=== PATIENT | female | born 1975 | race Caucasian/White ===

== ENCOUNTER 2018-01-13 15:21 | Emergency (ER) | payer BC, SELFPAY ==
[2018-01-13 15:24] VITALS: PULSE 87; RESP 14; O2SAT 100
--- NOTE | 2018-01-13 15:26 | DI.RAD.S_ITS ---
PROCEDURE: XR CHEST 1V INDICATIONS: Chest pain TECHNIQUE: One view of the chest was acquired. COMPARISON: None. FINDINGS: Surgical changes and devices: None. Lungs and pleura: No pleural effusions or pneumothorax. Lungs are clear. Mediastinum: Mediastinal contours appear normal. Heart size is normal. Bones and chest wall: No suspicious bony lesions. Overlying soft tissues appear unremarkable. IMPRESSION: No acute cardiopulmonary pathology. Dictated by: Nikko Andre M.D. on 01/13/2018 at 15:55 Approved by: Nikko Andre M.D. on 01/13/2018 at 15:56
[2018-01-13 15:29] VITALS: BP 155/80; TEMP 36.7
--- NOTE | 2018-01-13 15:46 | ED.CHESTPAIN ---
HPI - Chest Pain General Chief Complaint: Chest Pain Stated Complaint: CHEST PAIN Time Seen by Provider: 01/13/18 15:26 Source: patient Mode of arrival: ambulatory Limitations: no limitations History of Present Illness HPI narrative: Patient is a 42-year-old female here for evaluation of left-sided chest pain. She states that it started this morning. She states that it woke her woke her up from sleep this morning she states that it then went away and then returned this afternoon. She states that his left side. Pressure. Radiating to the left side of her breast. No shortness of breath. Not worse with palpation. Not worse with movement. Not worse with deep breaths. 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 She is not currently on any aspirin. She has had pain similar to this in the past. She states she has been to the emergency department in the past but has never had a ?workup ?of the pain. She has seen her primary care doctor. Never seen a gristmiller. Related Data Allergies Allergy/AdvReac Type Severity Reaction Status Date / Time amoxicillin [AMOXICILLIN] Allergy Mild RASH Unverified 08/29/17 12:29 clavulanic acid Allergy Mild RASH Unverified 08/29/17 12:29 [From AUGMENTIN] Review of Systems Constitutional Denies chills and Denies fever(s) ENT Ears, Nose, Mouth, and Throat: Denies vertigo and Denies dizziness Cardiovascular Reports chest pain, Denies syncope, Denies edema and Denies dyspnea Respiratory Denies cough, Denies pain on inspiration and Denies dyspnea Gastrointestinal Gastrointestinal: Denies abdominal pain, Denies diarrhea, Denies nausea and Denies vomiting Genitourinary Denies dysuria Musculoskeletal Denies myalgias and Denies arthralgias Integumentary/Breasts Denies lesions and Denies rash Neurologic Denies vertigo, Denies dizziness and Denies syncope Hematologic/Lymphatic Denies easy bleeding and Denies easy bruising [facility] Medical History CVA (cerebral vascular accident) (Acute) Vertebral artery dissection (Acute) Surgical History No pertinent past surgical history (Acute) Exam Initial Vital Signs Initial Vital Signs: Vital Signs Pulse Rate 87 01/13/18 15:24 Respiratory Rate 14 01/13/18 15:24 Pulse Oximetry 100 01/13/18 15:24 Const General: cooperative, healthy appearing, comfortable, well developed, well groomed and No acute distress Orientation: alert, awake and oriented x3 HENMT Head: normal to inspection and normocephalic Chest Chest: normal inspection of the chest and normal palpation of entire chest wall Resp Effort & Inspection: normal respiratory effort Auscultation: clear to auscultation bilaterally Cardio Rate: regular rate Rhythm: regular rhythm Heart Sounds: no murmurs Pulses: radial pulses present GI Inspection: non-distended Palpation: No firm and No tender Skin Lesions: no lesions Rashes: no rashes Neuro General: alert, awake and oriented x3 Cognition: normal cognition Speech: speech normal Gait: normal gait Extrem General: normal to inspection and capillary refill normal Psych Appearance: grossly normal and well kempt Scores HEART Score Heart Score history: Slightly Suspicious Heart Score EKG: Normal Heart Score Age: < 45 years old Heart Score risk factors: No known risk factors Heart Score troponin: < or = to normal limit Heart Score Total: 0 Course Orders Ordered: ED Orders 01/13/18 13:25 EKG-12 Lead Stat 01/13/18 15:26 XR chest 1V Stat 01/13/18 16:10 Basic Metabolic Panel Stat Complete Blood Count AUTO DIFF Stat Troponin I Stat Discontinued Medications Aspirin (Aspirin Chew) 324 mg PO NOW ONE Stop: 01/13/18 15:48 Last Admin: 01/13/18 15:54 Dose: 324 mg Vital Signs - 8 hr 01/13/18 15:24 01/13/18 15:29 01/13/18 16:03 Temperature 98.1 F Pulse Rate 87 82 Respiratory Rate 14 15 Blood Pressure [Left Arm] 155/80 H 130/77 H Pulse Oximetry 100 100 01/13/18 16:36 01/13/18 17:08 Temperature Pulse Rate 88 78 Respiratory Rate 16 18 Blood Pressure [Left Arm] 122/72 H 127/75 H Pulse Oximetry 99 99 MDM - Chest Pain Lab Data Attestation: I reviewed the patient's lab results. Result diagrams: 01/13/18 16:10 01/13/18 16:10 Lab Results 01/13/18 01/13/18 Range/Units 16:10 16:10 WBC 7.2 (4.5-11.0) X10^3/uL RBC 5.14 (4.0-5.2) X10^6/uL Hgb 14.7 (12.0-16.0) g/dL Hct 43.9 (36-46) % MCV 85.5 (80-100) fL MCH 28.6 (26-34) PG MCHC 33.5 (30-36) % RDW 14.6 (11.6-14.8) % Plt Count 280 (150-400) X10^3/uL Neut % (Auto) 64.9 (50-75) % Lymph % (Auto) 25.5 (25-40) % [place] % (Auto) 7.8 (3-14) % Eos % (Auto) 1.1 L (2-4) % Baso % (Auto) 0.7 (0-2) % Neut # (Auto) 4700 (0033-7436) /uL Sodium 145 (137-145) mmol/L Potassium 4.6 (3.4-5.1) mmol/L Chloride 104 (98-107) mmol/L Carbon Dioxide 28 (22-32) mmol/L BUN 12 (7-17) mg/dL Creatinine 0.80 (0.52-1.04) mg/dL Estimated GFR > 60.0 (>60) mL/min BUN/Creatinine Ratio 15.0 (6-22) Glucose 99 (70-100) mg/dL Calcium 9.5 (8.4-10.2) mg/dL Troponin I < 0.012 (0.01-0.034) ng/mL Imaging Data Chest x-ray: Radiologist's impression: [address] [address] XRay Report Signed Patient: Angi Bui FMR#: [id number] : 1975Acct:[id number] Age/Sex: 42 / FDate of Service: 01/13/18 Loc: ED Accession Number: [id number] Procedure: XR chest 1V Ordering Provider: Juan Lee D.O. PROCEDURE: XR CHEST 1V INDICATIONS: Chest pain TECHNIQUE: One view of the chest was acquired. COMPARISON: None. FINDINGS: Surgical changes and devices: None. Lungs and pleura: No pleural effusions or pneumothorax. Lungs are clear. Mediastinum: Mediastinal contours appear normal. Heart size is normal. Bones and chest wall: No suspicious bony lesions. Overlying soft tissues appear unremarkable. IMPRESSION: No acute cardiopulmonary pathology. Dictated by: Nikko Andre M.D. on 01/13/2018 at 15:55 Approved by: Nikko Andre M.D. on 01/13/2018 at 15:56 ECG Data Attestation: I personally reviewed and interpreted this ECG as follows: Prior ECG tracings: not available for review Interpretation: Sinus rhythm Ventricular rate in 90 Normal axis Normal intervals Normal QRS No ST T wave changes MDM Narrative Medical decision making narrative: Heart score 0 Nonischemic EKG Negative troponin 6 hr after the onset of her pain Low risk for ACS. Discussed this with the patient. She was given return precautions. Informed her she needed to talk with her primary doctor about further workup to include a stress test. She expressed understanding and agreement with plan. Discharge Plan Departure Patient Disposition: Home Clinical Impression: Atypical chest pain Instructions: DI for Atypical Chest Pain Activity Restrictions/Additional Instructions: Recommend you contact her primary care doctor to discuss follow-up to include the indications for a stress test. Return to the emergency department for any new or worsening symptoms.
[2018-01-13] MEDS: ASPIRIN 81 MG TAB 324 MG PO (15:54)
[2018-01-13 16:03] VITALS: BP 130/77; PULSE 82; RESP 15; O2SAT 100
[2018-01-13 16:23] LABS: Add Manual Diff / Slide Review NO; Basophils Percent Auto 0.7 % (0-2); Eosinophils Percent Auto 1.1 % (2-4); Hematocrit 43.9 % (36-46); Hemoglobin 14.7 g/dL (12.0-16.0); Lymphocytes Percent Auto 25.5 % (25-40); Mean Corpuscular HGB Conc 33.5 % (30-36); Mean Corpuscular Hemoglobin 28.6 PG (26-34); Mean Corpuscular Volume 85.5 fL (80-100); Monocytes Percent Auto 7.8 % (3-14); Neutrophils Absolute Auto 4700 /uL (3000-5900); Neutrophils Percent Auto 64.9 % (50-75); Platelet Count 280 X10^3/uL (150-400); Red Blood Cell Count 5.14 X10^6/uL (4.0-5.2); Red Cell Distribution Width 14.6 % (11.6-14.8); White Blood Cell Count 7.2 X10^3/uL (4.5-11.0)
[2018-01-13 16:29] LABS: Blood Urea Nitrogen 12 mg/dL (7-17); Calcium 9.5 mg/dL (8.4-10.2); Carbon Dioxide 28 mmol/L (22-32); Chloride 104 mmol/L (98-107); Estimated Glomerular Filt Rate > 60.0 mL/min (>60); Glucose 99 mg/dL (70-100); HEMOLYSIS < 15 (0-50); Potassium 4.6 mmol/L (3.4-5.1); Sodium 145 mmol/L (137-145)
[2018-01-13 16:36] VITALS: BP 122/72; PULSE 88; RESP 16; O2SAT 99
[2018-01-13 17:08] VITALS: BP 127/75; PULSE 78; RESP 18; O2SAT 99
[2018-01-13 17:08] LABS: Troponin I < 0.012 ng/mL (0.01-0.034)
== END 2018-01-13 17:43 | disposition home or self-care (01) ==
PROVIDERS: Emergency Provider Emergency Medicine; Family Provider Registered Nurse; PCP Registered Nurse
DX: R07.89 Other chest pain (principal)
CPT/HCPCS: 36415; 71045; 80048; 84484; 85025; 93005; 93010; 99283; 99285

== ENCOUNTER → 2018-02-02 11:21 | Outpatient (CLI) | payer BC, SELFPAY ==
--- NOTE | 2018-02-02 | DI.MG.S_ITS ---
BILATERAL DIGITAL SCREENING MAMMOGRAM 3D/2D WITH CAD: 02/02/2018 CLINICAL: Routine screening. Family history of breast cancer. Comparison is made to exams dated: 08/09/2016 mammogram - [facility], 09/01/2009 mammogram, and 08/26/2009 mammogram - [facility]. The tissue of both breasts is heterogeneously dense. This may lower the sensitivity of mammography. Current study was also evaluated with a Computer Aided Detection (CAD) system. There is an asymmetry in the right breast posterior depth outer region seen on the craniocaudal view only. A metallic density projects over the upper inner right breast at middle depth, unchanged from prior exam. No other significant masses, calcifications, or other findings are seen in either breast. IMPRESSION: INCOMPLETE: NEEDS ADDITIONAL IMAGING EVALUATION The asymmetry in the right breast is indeterminate. Additional views with possible ultrasound are recommended. This exam was interpreted at Station ID: [id number]. NOTE: For mammograms, a report in lay terms will be sent to the patient. Approximately 15% of breast malignancies will not be visualized mammographically. In the management of a palpable breast mass, a negative mammogram must not discourage biopsy of a clinically suspicious lesion. Electronically Signed By: Wellington Briones M.D. ecl/:02/04/2018 08:28:01 letter sent: Additional Imaging Needed ACR BI-RADS Category 0: Incomplete [id number]
== END ==
PROVIDERS: PCP Registered Nurse; Visit Provider Naturopath
DX: Z12.31 Encounter for screening mammogram for malignant neoplasm of breast (principal); Z80.3 Family history of malignant neoplasm of breast
CPT/HCPCS: 77063; 77067

== ENCOUNTER → 2018-03-05 14:22 | Outpatient (CLI) | payer BC, SELFPAY ==
--- NOTE | 2018-03-05 | DI.MG.S_ITS ---
UNILATERAL RIGHT DIGITAL DIAGNOSTIC MAMMOGRAM 3D/2D WITH ADDITIONAL VIEWS: 03/05/2018 CLINICAL: Additional evaluation requested from prior study. Comparison is made to exams dated: 02/02/2018 mammogram, 08/09/2016 mammogram - [facility], and 09/01/2009 mammogram - [facility]. There are scattered fibroglandular elements in right breast. There is a benign oval low density asymmetry with an indistinct margin in the right breast posterior depth lateral region seen on the craniocaudal view only. This is not seen in additional views. No other significant masses or calcifications are seen in the breast. IMPRESSION: There is no mammographic evidence of malignancy. A 1 year screening mammogram is recommended. This exam was interpreted at Station ID: [id number]. NOTE: For mammograms, a report in lay terms will be sent to the patient. Approximately 15% of breast malignancies will not be visualized mammographically. In the management of a palpable breast mass, a negative mammogram must not discourage biopsy of a clinically suspicious lesion. Electronically Signed By: Mata mendes/saloni:03/05/2018 15:00:17 letter sent: Normal Exam ACR BI-RADS Category 2: Benign Finding(s) 3342F
== END ==
PROVIDERS: PCP Naturopath; Visit Provider Naturopath
DX: R92.8 Other abnormal and inconclusive findings on diagnostic imaging of breast (principal)
CPT/HCPCS: 77065; G0279

== ENCOUNTER → 2018-04-29 13:41 | Outpatient (CLI) | payer BC, SELFPAY ==
--- NOTE | 2018-04-29 14:55 | PM.TREADMILL ---
Cardiac Stress Test Report Referral & Results Date Patient Seen: 04/29/18 Requesting provider: Abelino Escobedo Indication: Chest pain Rest ECG: Unremarkable Procedure Note: Today following both written and verbal informed consent, the patient was exercised according to a standard [facility] protocol. The patient exercised for a total of 7 min 21 sec achieving a maximum heart rate of 170 to. Patient's maximum systolic blood pressure was to 120. This was an estimated 10.1 MET's. Normal heart rate and blood pressure response No ST-T segment changes Occasional PVC Functional aerobic impairment rated 0 on the sedentary scale Impression: No evidence of ischemia. Average exercise capacity Please note: Actual ECG tracings can be found in the PACS system.
== END ==
PROVIDERS: Family Provider Internal Medicine; PCP Naturopath; Visit Provider Nurse Practitioner Family
DX: R07.9 Chest pain, unspecified (principal)
CPT/HCPCS: 93016; 93017; 93018

== ENCOUNTER → 2018-05-08 13:35 | Outpatient (CLI) | payer BC, SELFPAY ==
--- NOTE | 2018-05-08 | DI.MRI.S_ITS ---
PROCEDURE: MR BRAIN (IAC) WWO CON INDICATIONS: RIGHT Tinnitus RIGHT ABNORMAL AUDITORY PERCEPTION TECHNIQUE: Noncontrast sagittal T1 spin echo, axial FLAIR, axial gradient echo, axial diffusion and ADC through the brain. Axial thin-slice 3D CISS, coronal TruFISP, axial T1 spin echo with fat saturation through the internal auditory canals. After the administration of contrast, thin slice axial and coronal T1 spin echo with fat saturation through the internal auditory canals, and axial T1 spin echo with fat saturation through the brain. COMPARISON: None. FINDINGS: Image quality: Excellent. Cranial nerves: No cerebellopontine angle masses. Visualized cranial nerves demonstrate no abnormal signal, mass lesion or enhancement. 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 Similar appearance is noted on the right. CSF spaces: Ventricles are normal in size and shape. No extra-axial fluid collections. Basal cisterns are patent. Brain: No intracranial bleeds or mass effects. Kong-white matter interface is intact. No abnormal intracranial enhancement. Diffusion weighted images demonstrate no acute ischemic insults. Brainstem appears normal. Normal intravascular flow voids are present. Skull and face: Calvarial marrow signal is normal. Orbits appear normal. Sinuses: Sinuses demonstrate scattered minimal sinus mucosal thickening. IMPRESSION: 1. Visualized cranial nerves demonstrate no abnormal signal, mass lesion or enhancement. It is noted that a branch of what appears to be AICA, crosses the seventh cranial nerve at the cerebellopontine angles bilaterally. This can be seen with vascular loop compression syndrome. Clinical correlation is recommended. Dictated by: Marysol Chow M.D. on 05/08/2018 at 16:22 Approved by: Marysol Chow M.D. on 05/08/2018 at 16:31
== END ==
PROVIDERS: Family Provider Internal Medicine; PCP Naturopath; Visit Provider Otolaryngology Facial Plastic Surgery
DX: H93.11 Tinnitus, right ear (principal); H93.291 Other abnormal auditory perceptions, right ear
CPT/HCPCS: 70553; A9579

== ENCOUNTER 2018-06-07 17:06 | Emergency (ER) | payer BC, SELFPAY ==
[2018-06-07 17:20] VITALS: BP 138/82; PULSE 111; RESP 19; TEMP 39; O2SAT 100; BMI 39.4
--- NOTE | 2018-06-07 17:26 | DI.RAD.S_ITS ---
PROCEDURE: XR CHEST 2V INDICATIONS: coughing with chest pressure TECHNIQUE: 2 views of the chest were acquired. COMPARISON: [facility], CR, XR CHEST 1V, 01/13/2018, 15:39. FINDINGS: Surgical changes and devices: None. Lungs and pleura: No pleural effusions or pneumothorax. Lungs are clear. Mediastinum: Mediastinal contours are normal. Heart size is normal. Bones and chest wall: No suspicious bony abnormalities. Soft tissues appear unremarkable. IMPRESSION: No acute cardiopulmonary findings. Dictated by: Mayi Paige M.D. on 06/07/2018 at 17:46 Approved by: Mayi Paige M.D. on 06/07/2018 at 17:46
[2018-06-07 17:31] VITALS: TEMP 39
[2018-06-07] MEDS: ACETAMINOPHEN 325 MG TABLET 975 MG PO (17:31)
[2018-06-07 18:30] VITALS: PULSE 109; RESP 18; TEMP 38.8; O2SAT 97
--- NOTE | 2018-06-07 18:55 | ED_ITS ---
HPI - URI/Sore Throat General Chief Complaint: Upper Respiratory Symptoms Stated Complaint: fever,heart palpitations,congestion Time Seen by Provider: 06/07/18 18:36 Source: patient Mode of arrival: ambulatory Limitations: no limitations History of Present Illness HPI Narrative: Patient is a 23-year-old female who presents with cough and shortness of breath ongoing for last 2 days. She says she has had fever and body aches as well. She denies any sore throat. She feels with any slight movement she gets very short of breath. No productive cough. She is currently afebrile. Influenza has already come back and is positive. She is taking prednisone on a taper dose for tinnitus which she has had for the last 3 months. She says she is not sleeping likely due to the tinnitus and prednisone. MD Complaint: fever and cough Onset (ago): day(s) (2) Related Data Home Medications Medication Instructions Recorded Confirmed Bacillus coagulans [Probiotic (B. 1 cap PO DAILY 06/07/18 06/07/18 coagulans)] azelastine 1 spray INTRANASAL DAILY 06/07/18 06/07/18 cholecalciferol (vitamin D3) 1,000 unit PO DAILY 06/07/18 [Vitamin D3] prednisone See Label Instructions .ROUTE 06/07/18 06/07/18 .COMPLEX Allergies Allergy/AdvReac Type Severity Reaction Status Date / Time amoxicillin [AMOXICILLIN] Allergy Mild RASH Unverified 08/29/17 12:29 clavulanic acid Allergy Mild RASH Unverified 08/29/17 12:29 [From AUGMENTIN] Review of Systems Review of Systems ROS Unobtainable: All systems reviewed & are unremarkable except as noted in HPI and below Constitutional Reports body ache(s), Reports chills, Reports fatigue and Reports fever(s) Eyes Denies change in vision, Denies eye discharge, Denies irritation and Denies loss of vision ENT Ears, Nose, Mouth, and Throat: Denies change in voice, Denies neck pain and Denies sore throat Cardiovascular Denies chest pain, Denies irregular heart rhythm, Denies lightheadedness, Denies palpitations and Denies orthopnea Respiratory Reports as per HPI and Reports cough Gastrointestinal Gastrointestinal: Denies abdominal pain, Denies change in bowel habits, Denies diarrhea, Denies nausea and Denies vomiting Musculoskeletal Denies neck pain Integumentary/Breasts Denies pruritus, Denies erythema, Denies rash and Denies wounds Neurologic Denies loss of vision Endocrine Reports fatigue and Denies palpitations PFS Medical History CVA (cerebral vascular accident) (Acute) Vertebral artery dissection (Acute) Surgical History No pertinent past surgical history (Acute) Social History Smoking Status: Former smoker Exam Initial Vital Signs Initial Vital Signs: Vital Signs Temperature 102.2 F H 06/07/18 17:20 Pulse Rate 111 H 06/07/18 17:20 Respiratory Rate 19 06/07/18 17:20 Blood Pressure 138/82 06/07/18 17:20 Pulse Oximetry 100 06/07/18 17:20 GENERAL: Alert awake oriented female x3, appears to not feel well but is nontoxic HEENT: Head atraumatic,EOMI, pupils reactive, CARDIOVASCULAR: Regular rate and rhythm without murmurs, rubs or gallops. RESPIRATORY: Breath sounds equal bilaterally, no wheezes rales or rhonchi. ABDOMEN: Soft, nontender. Normoactive bowel sounds all 4 quadrants. No guarding or rebound. EXTREMITIES: Normal range of motion, no clubbing or edema. Neurovascularly intact NEUROLOGICAL: Alert and oriented x4.Normal gait and speech. Cranial nerves II through XII grossly intact. SKIN: Warm, dry, no laceration, no petechiae, no rashes or lesions. Course Orders Ordered: ED Orders 06/07/18 17:20 FLU A and B [Influenza A and B by PCR Rapid] Stat 06/07/18 17:26 XR chest 2V Stat Discontinued Medications Acetaminophen (Tylenol) 975 mg PO NOW ONE Stop: 06/07/18 17:28 Last Admin: 06/07/18 17:31 Dose: 975 mg Vital Signs - 8 hr 06/07/18 17:20 06/07/18 17:31 06/07/18 18:30 Temperature 102.2 F H 102.2 F H 101.8 F H Pulse Rate 111 H 109 H Respiratory Rate 19 18 Blood Pressure 138/82 Pulse Oximetry 100 97 MDM - URI/Sore Throat Lab Data Attestation: I reviewed the patient's lab results. Lab Results 06/07/18 Range/Units 17:20 Influenza A & B (PCR) Positive, type a A (Negative) Imaging Data Chest x-ray: Radiologist's impression: PROCEDURE: XR CHEST 2V INDICATIONS: coughing with chest pressure TECHNIQUE: 2 views of the chest were acquired. COMPARISON: [facility], CR, XR CHEST 1V, 01/13/2018, 15:39. FINDINGS: Surgical changes and devices: None. Lungs and pleura: No pleural effusions or pneumothorax. Lungs are clear. Mediastinum: Mediastinal contours are normal. Heart size is normal. Bones and chest wall: No suspicious bony abnormalities. Soft tissues appear unremarkable. IMPRESSION: No acute cardiopulmonary findings. Dictated by: Mayi Paige M.D. on 06/07/2018 at 17:46 MDM Narrative Medical decision making narrative: Discussed with patient risks and benefits taking tamiflu. At this time she declines. She says she is dealing with enough. She is healthy without risk factors. down a 99.7, heart rate improved to 86. Oxygen level 98% Discharge Plan Departure Patient Disposition: Home Clinical Impression: Influenza A Discharge Date/Time: 06/07/18 19:00 Interventions: ED Discharge Assessment Last Done: 06/07/18 19:25 Instructions: DI for Influenza -- Adult Activity Restrictions/Additional Instructions: *You have been diagnosed with influenza a *What to do: Rest, hydrate, fever control *Continue to take medications as directed Motrin 800 mg every 8 hr if needed for pain or fever Tylenol 975 mg every 6 hr if needed for pain or fever do not exceed more than 4000mg in 24 hours *Follow up with your primary care provider in 2-3 days *Return to ER if you should have increased shortness of breath, fever not controlled, decreased oral intake or any new, worsening or concerning symptoms Prescriptions: No Action prednisone 10 mg tablet See Label Instructions .ROUTE .COMPLEX RF: 0 azelastine 137 mcg (0.1 %) aerosol,spray 1 spray Intranasal DAILY RF: 0 cholecalciferol (vitamin D3) [Vitamin D3] 1,000 unit capsule 1,000 unit PO DAILY RF: 0 Bacillus coagulans [Probiotic (B. coagulans)] 10 billion cell capsule,delayed release(DR/EC) 1 cap PO DAILY RF: 0 Referrals: Key Nolan ND [Primary Care Provider] - Roge Chiu ARNP [Non-Staff] -
--- NOTE | 2018-06-07 19:24 | PC.NURSE ---
Pt. seen and discharged by MD deferr to MD notes
== END 2018-06-07 19:00 | disposition home or self-care (01) ==
PROVIDERS: Emergency Medicine; Emergency Provider Emergency Medicine; Family Provider Internal Medicine; PCP Naturopath
DX: J10.1 Influenza due to other identified influenza virus with other respiratory manifestations (principal)
CPT/HCPCS: 71046; 87400; 99282; 99284

== ENCOUNTER → 2018-06-21 12:38 | Outpatient (CLI) | payer BC, SELFPAY | PROVIDERS: Family Provider Internal Medicine; PCP Naturopath; Visit Provider Nurse Practitioner Family | DX: B96.81 Helicobacter pylori [H. pylori] as the cause of diseases classified elsewhere (principal) | CPT/HCPCS: 86677 ==

== ENCOUNTER → 2018-06-21 15:33 | Outpatient (CLI) | payer BC, SELFPAY ==
--- NOTE | 2018-06-21 | DI.MRI.S_ITS ---
PROCEDURE: MR ANGIO HEAD WO CON INDICATIONS: Pulsatile tinnitus, bilateral TECHNIQUE: Noncontrast axial 3-D [id number] MR angiogram, with 3-dimensional maximum intensity projection (MIP) reformats of the internal carotid arteries and posterior circulation then performed. COMPARISON: [facility], MR, MR BRAIN (IAC) WWO CON, 05/08/2018, 13:45. FINDINGS: Image quality: Excellent. Anterior circulation: Intracranial internal carotid arteries demonstrate normal size and intraluminal flow signal. The flow within the paired anterior cerebral arteries is normal and symmetric. The flow within the middle cerebral arteries is normal and symmetric. The anterior communicating artery is seen. No stenoses, occlusions, or aneurysms. Posterior circulation: Visualized portions of the vertebral arteries demonstrate normal caliber, and join to form a normal appearing basilar artery. The flow within the posterior cerebral arteries is normal and symmetric. No stenoses, occlusions, or aneurysms. IMPRESSION: Intracranial arteries are within normal limits. There is no occlusion, high-grade narrowing, aneurysm, or vascular malformation. Dictated by: Satnam Vo M.D. on 06/21/2018 at 15:24 Approved by: Satnam Vo M.D. on 06/21/2018 at 15:27
--- NOTE | 2018-06-21 | DI.MRI.S_ITS ---
PROCEDURE: MR ANGIO NECK W CON INDICATIONS: Pulsatile tinnitus, bilateral TECHNIQUE: Axial and sagittal TruFISP through the neck. Coronal dynamic MRA after the administration of contrast in the arterial and venous phases, with rotating 3-dimensional maximum intensity projection (MIP) reformats constructed from subtraction images. COMPARISON: [facility], MR, MR BRAIN (IAC) WWO CON, 05/08/2018, 13:45. [facility], MR, MR ANGIO HEAD WO CON, 06/21/2018, 15:52. FINDINGS: Image quality: Limited by motion artifact. Carotid system: Great vessels demonstrate a conventional anatomy as they arise from the aortic arch. The origins of the common carotid arteries appear normal. The calibers and courses of the common carotid arteries are likewise normal. The carotid bifurcations appear normal bilaterally. The internal carotid arteries are widely patent up to the [place] of [place]. Posterior circulation: The origins of the vertebral arteries are unremarkable. The more superior portions of the vertebral arteries demonstrate normal course and caliber. Vertebral arteries join to form a normal appearing basilar artery. Miscellaneous: Subclavian arteries are patent throughout. Pre-contrast images through the neck demonstrate no soft tissue abnormalities. IMPRESSION: Normal MR angiogram of the neck. Any quantitative measurements of stenosis were performed using NASCET criteria. Dictated by: Kassi Tracy MD, PhD on 06/21/2018 at 16:43 Approved by: Kassi Tracy MD, PhD on 06/21/2018 at 16:48
== END ==
PROVIDERS: Family Provider Internal Medicine; PCP Naturopath; Visit Provider Otolaryngology
DX: H93.A3 Pulsatile tinnitus, bilateral (principal)
CPT/HCPCS: 70544; 70548; A9579

== ENCOUNTER → 2018-11-25 13:03 | Outpatient (CLI) | payer BC, SELFPAY | PROVIDERS: Family Provider Internal Medicine; PCP Internal Medicine; Visit Provider Physician Assistant | DX: K21.9 Gastro-esophageal reflux disease without esophagitis (principal); B96.81 Helicobacter pylori [H. pylori] as the cause of diseases classified elsewhere | CPT/HCPCS: 83013 ==

== ENCOUNTER → 2018-12-23 11:51 | Outpatient (CLI) | payer BC, SELFPAY ==
--- NOTE | 2018-12-23 | DI.US.S_ITS ---
PROCEDURE: US ABDOMEN COMPLETE INDICATIONS: LEFT UPPER QUADRANT DISCOMFORT TECHNIQUE: Real-time scanning was performed of the abdominal and retroperitoneal organs, with image documentation. COMPARISON: None. FINDINGS: Liver: Liver is normal in size and homogeneous in echotexture. Heterogeneous solid right hepatic lobe mass visualized with central echogenic component measuring 2.4 x 2.3 x 1.9 cm. Gallbladder: No gallstones identified. Normal gallbladder wall. No pericholecystic fluid. Negative sonographic Barreto sign. Biliary ducts: Intrahepatic bile ducts are non-dilated. Extrahepatic bile duct caliber measures 4.1 mm. Normal is 6-7 mm or less in diameter, or 10 mm or less post-cholecystectomy. Pancreas: Visualized portions of the pancreas are sonographically normal. Spleen: Spleen is normal in size and homogeneous in echotexture. Kidneys: Kidneys are normal in size and echotexture. Right kidney measures 10.3 cm long; left kidney measures 10.8 cm long. No hydronephrosis or nephrolithiasis. No solid masses. Aorta: Visualized aorta is normal in caliber at less than 3 cm. Iliacs: Proximal common iliac arteries are normal in caliber at less than 2.5 cm. IVC: Intrahepatic inferior vena cava is patent. Miscellaneous: No free abdominal fluid. IMPRESSION: Heterogeneous solid lateral right hepatic lobe mass which may represent an atypical hemangioma; however differential diagnosis would also include underlying malignancy. Recommend Pre and post contrast hepatic protocol MRI for further assessment Dictated by: Marcello TRAVIS Interpreted: Enoc Rizo MD on 12/23/2018 at 14:20 Approved by: Enoc Rizo M.D. on 12/24/2018 at 8:17
== END ==
PROVIDERS: Family Provider Internal Medicine; PCP Internal Medicine; Visit Provider Nurse Practitioner
DX: R10.12 Left upper quadrant pain (principal); K76.9 Liver disease, unspecified
CPT/HCPCS: 76700

== ENCOUNTER 2018-12-26 14:02 | Outpatient (RCR) | payer BC, SELFPAY ==
--- NOTE | 2018-12-26 17:57 | PT.OIE ---
Current Diagnoses Tinnitus, bilateral (12/26/18) Dizziness and giddiness (12/26/18) Past Medical History (Last Reviewed 06/07/18 @ 18:52 by Deb Carpenter DO) CVA (cerebral vascular accident) (Acute) Vertebral artery dissection (Acute) Past Surgical History (Last Reviewed 06/07/18 @ 18:52 by Deb Carpenter DO) No pertinent past surgical history (Acute) Provider Visit Care Team Role Provider Type Antoine Forde MD Primary Care Provider Physician Specialty: Wound Care Address: [address] [place] [address], [id number] Email: [email or web address] Stephen Suresh MD Attending Provider Physician Specialty: Ear, Nose, Throat Address: [address] [place] [address], [phone] Email: Physical Therapy Initial Evaluation PT-OP-A Visit Information Start: 12/26/18 17:40 Freq: Status: Active Protocol: Document 12/26/18 14:30 [facility] (Rec: 12/26/18 17:57 [facility] [id number]) Out-Patient Physical Therapy Visit Information Visit Information Visit Type Initial Evaluation Visit Start Time 14:30 Visit Stop Time 15:15 Total Visit Minutes 45 Visit Number 1 Number of STUDENT AMBASSADOR Visits 0 Evaluation Information Evaluation Date 12/26/18 PT-OP-B Current Condition Start: 12/26/18 17:40 Freq: Status: Active Protocol: Document 12/26/18 14:30 [facility] (Rec: 12/26/18 17:57 [facility] [id number]) Current Condition History of Current Condition Onset Date one year history Current Complaints occasional sensation of off- balance/dizziness. History of Current Condition Pt is a 43 year old female presenting with a one year history of spontaneous vertigo and imbalance. Pt reports episodes last hours. Symptoms are provoked by laying in bed. Pt's history is complicated by a CVA five years ago following a vertebral artery dessication following a chiropractic manipulation. Pt's symptoms of a falling sensation while laying down began a year ago, however, and pt reports that it lasts for hours until she can get to sleep. Pt notes that it occurred four nights in a row two weeks ago, but then hasn't returned since then. Pt notes she has had a few falls that occur out of nowhere, typically when quickly turning her head. Pt denies recent hearing changes, tinnitus, diplopia, dysarthria, discoordination, or decreased mentation/ consciousness. Pt reports symptoms are waxing/waning in nature. Pt denies hx of HTN, hyperlipidemia, diabetes, arrhythmia, head trauma, seizure, migraines, back/neck problems, CVA, anxiety/panic disorders, depression, or excessive smoking or drinking. Prior Treatments and Tests Currently being seen at physical therapy for TMJ Treatment Goals Patient/Caregiver Goals Determine if her dizziness is caused by a vesitbular disorder PT-OP-C Subjective Start: 12/26/18 17:40 Freq: Status: Active Protocol: Document 12/26/18 14:30 [facility] (Rec: 12/26/18 17:57 [facility] [id number]) Patient Questionnaires Dizziness Handicap Inventory DHI Score 64 DHI Functional Impairment 60 to 79% Impaired (Score 60- 79) PT-OP-D Balance Start: 12/26/18 17:40 Freq: Status: Active Protocol: Document 12/26/18 14:30 [facility] (Rec: 12/26/18 17:57 [facility] [id number]) Balance Tests CTSIB CTSIB Position 1 Slight Sway CTSIB Position 2 Slight Sway CTSIB Position 3 Slight Sway CTSIB Position 4 Slight Sway CTSIB Position 5 Slight Sway CTSIB Position 6 Mild Sway PT-OP-O Vestibular Start: 12/26/18 17:40 Freq: Status: Active Protocol: Document 12/26/18 14:30 [facility] (Rec: 12/26/18 17:57 [facility] [id number]) Vestibular Assessment Screening Tests Vestibular Artery Screen Negative Auditory Tests Licona Test Negative Rinne Test Negative Air Conduction Results Equal Visual Testing Smooth Pursuits Horizontal Negative Smooth Pursuits Vertical Mild occasional saccade at midline moving right to left Saccades Horizontal Negative Saccades Vertical Negative Gaze Evoked Nystagmus With Fixation Negative Gaze Evoked Nystagmus Without Fixation Negative Heave Test Positive Bilateral Thrust Head Negative David String Test Impaired Convergence Test WNL DVA (Line Degradation) 3 Head Shake Negative Positional Testing [place]-Hallpike Negative Left Negative Right Rolling Test Negative Left Negative Right Supine to Sit Negative Sit to Supine Negative PT-OP-T Assessment and Plan Start: 12/26/18 17:40 Freq: Status: Active Protocol: Document 12/26/18 14:30 [facility] (Rec: 12/26/18 17:57 [facility] [id number]) Physical Therapy Assessment Evaluation Complexity Number of Personal Factors/Comorbidities 0 Number of Body Systems Impaired 1-2 Clinical Presentation at Evaluation Unstable Impairments Impairments Vestibular Assessment Summary Assessment At this time, pt's vesitbular evaluation is almost entirely negative for both peripheral and central sings. Pt had a mildly positive heave test, and mild saccadic movements during horizontal smooth pursuit, but by themselves, with no other positive tests, these positive tests are not indicative of any central or peripheral cause. Additionally , pt's reported history of a falling sensation which lasts for multiple hours 3-4 days in a row is not indicative of any known vestibular disorder. With pt's ongoing headache history, most likely cause of her complaints are migraine- variant dizziness. No further vestibular therapy is indicated at this time, and pt should continue to follow along with her migraine specialist and PT for TMJ. Physical Therapy Plan Frequency and Duration Frequency of Treatment 1x/Week Duration of Treatment 1 day Plan of Care Start Date 12/26/18 Plan of Care End Date 12/27/18 Discharge Physical Therapy Discharge Comments No vestibular PT indicated at this time. Next Visit Focus/Plan Next Note Type Discharge Summary
--- NOTE | 2018-12-26 17:58 | PT.OPPOC ---
Current Diagnoses Tinnitus, bilateral (12/26/18) Dizziness and giddiness (12/26/18) Provider Visit Care Team Role Provider Type Antoine Forde MD Primary Care Provider Physician Specialty: Wound Care Address: [address] [place] [address], [phone] Email: [email or web address] Stephen Suresh MD Attending Provider Physician Specialty: Ear, Nose, Throat Address: [address] [place] [address], [id number] Email: Plan Of Care PT-OP-T Assessment and Plan Start: 12/26/18 17:40 Freq: Status: Active Protocol: Document 12/26/18 14:30 [facility] (Rec: 12/26/18 17:57 [facility] [id number]) Physical Therapy Assessment Evaluation Complexity Number of Personal Factors/Comorbidities 0 Number of Body Systems Impaired 1-2 Clinical Presentation at Evaluation Unstable Impairments Impairments Vestibular Assessment Summary Assessment At this time, pt's vesitbular evaluation is almost entirely negative for both peripheral and central sings. Pt had a mildly positive heave test, and mild saccadic movements during horizontal smooth pursuit, but by themselves, with no other positive tests, these positive tests are not indicative of any central or peripheral cause. Additionally , pt's reported history of a falling sensation which lasts for multiple hours 3-4 days in a row is not indicative of any known vestibular disorder. With pt's ongoing headache history, most likely cause of her complaints are migraine- variant dizziness. No further vestibular therapy is indicated at this time, and pt should continue to follow along with her migraine specialist and PT for TMJ. Physical Therapy Plan Frequency and Duration Frequency of Treatment 1x/Week Duration of Treatment 1 day Plan of Care Start Date 12/26/18 Plan of Care End Date 12/27/18 Discharge Physical Therapy Discharge Comments No vestibular PT indicated at this time. Next Visit Focus/Plan Next Note Type Discharge Summary Plan of Care Dates Plan of Care Start Date 12/26/18 Plan of Care End Date 12/27/18 Please Sign and Return: I have reviewed this Plan of Care and certify that the skilled therapy services above are required to meet the patient?s needs. Physician Signature Date Printed Name and Credentials Clinical Instructor Signature Printed Name and Credentials
== END 2019-01-01 15:25 | disposition home or self-care (01) ==
LOC: PHYS 14:02
PROVIDERS: PCP Internal Medicine; Visit Provider Otolaryngology
DX: H93.13 Tinnitus, bilateral (principal); R42 Dizziness and giddiness
CPT/HCPCS: 97161

== ENCOUNTER → 2019-02-04 16:22 | Outpatient (CLI) | payer BC, SELFPAY | PROVIDERS: PCP Internal Medicine; Visit Provider Nurse Practitioner Family | DX: R16.0 Hepatomegaly, not elsewhere classified (principal) ==

== ENCOUNTER 2019-03-24 11:15 | Outpatient (RCR) | payer BC, SELFPAY ==
--- NOTE | 2018-11-19 18:10 | PT.OIE ---
Current Diagnoses Tinnitus, bilateral (11/19/18) Cervicalgia (11/19/18) Abnormal posture (11/19/18) Jaw pain (11/19/18) Past Medical History (Last Reviewed 06/07/18 @ 18:52 by Deb Carpenter DO) CVA (cerebral vascular accident) (Acute) Vertebral artery dissection (Acute) Past Surgical History (Last Reviewed 06/07/18 @ 18:52 by Deb Carpenter DO) No pertinent past surgical history (Acute) Provider Visit Care Team Role Provider Type Antoine Forde MD Primary Care Provider Physician Specialty: Wound Care Address: [address] [place] [address], [id number] Email: [email or web address] Attending Provider Physician Specialty: Ear, Nose, Throat Address: [address] [place] [address], [id number] Email: Physical Therapy Initial Evaluation PT-OP-A Visit Information Start: 11/18/18 18:59 Freq: Status: Active Protocol: Document 11/19/18 13:51 [facility] (Rec: 11/19/18 18:09 [facility] [id number]) Out-Patient Physical Therapy Visit Information Visit Information Visit Type Initial Evaluation Visit Note 30 total in year Visit Start Time 13:45 Visit Stop Time 14:30 Total Visit Minutes 45 Visit Number 1 Number of ENDOSCOPY TECH Visits 0 Precautions Precautions Pt has history of L vertebral artery dissection PT-OP-B Current Condition Start: 11/18/18 18:59 Freq: Status: Active Protocol: Document 11/19/18 13:51 [facility] (Rec: 11/19/18 14:37 [facility] [id number]) Current Condition History of Current Condition Onset Date 8 months ago Current Complaints tinnitus History of Current Condition Pt reports she has had ringing in her ears that is constant. SHe notes she doesn't notice it as much except when going to sleep. 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 Pt reports she was recently treated for bacterial infjection in her gut and just finished antibiotics but has not been retested. Pt reports tinnitus started after a crown placed on her teeth. Pt reprots that she had a lot of pain with that and also started to go back to the chiropractor when this all started. Pt reports she had dizziness since a few years after the stroke. Pt reports some falls since stroke. Pt reports she had a tonsil abcess in November of 2016 and had tonsils removed and sinuses reduced. Reports when she turns over in bed, she gets dizziness sometimes and she often gets the falling sensation when trying to fall asleep. Pt reports intermittent RUTHERFORD and can go long periods without getting one to getting them for long periods like for 3 weeks. No specific location and reports they are not too bad and have happened for about 6 years intermittently. Reports she sometimes feels nauseaus and like she is moving when she isn't. Pt reprots some frozen preserved foods and chocolate bother her tinnitus. Pt reports she cannot sleep d/t ringing in her ears that is like a ayala ringing or a loud ringing. When laying on back, she has the vertigo sensation. Pt reprots neck pain daily that gets aggrevated by lifting things and she has a 5 year old. Pt reports nausea about 5x/week with no specific pattern of the day or with specific foods . Reports that started after she had her stroke. Reports when she had her stroke, she was . Pt gets ear aches since she got her tonsils out and feels ear pressure. Pt reports that its very intermittent. Pt reports blurred vision for about 1 hour in the AM. Reports she hasn't seen an optomologist since stroke. Pt reports also being diagnosed with fibromyalgia w/pain that is better now than when she was diagnosed about 5 years ago Prior Treatments and Tests Recent imaging of arteries available in chart, seen ENT but no vestibular testing done ; mouth guard for grinding, but no help Treatment Goals Patient/Caregiver Goals Get rid of the ringing in her ears, dec dizziness, nausea and vertigo, learn lifting mechanics PT-OP-F Manual Assessment Start: 11/18/18 18:59 Freq: Status: Active Protocol: Document 11/19/18 13:51 [facility] (Rec: 11/19/18 18:09 [facility] [id number]) Manual Assessments Soft Tissue Assessment Soft Tissue Mobility Assessment tightness throughout neck mm & jaw closing mm (temporalis, masseter, digastric) and cranial fascia PT-OP-J Posture/Palpation/Skin Start: 11/18/18 18:59 Freq: Status: Active Protocol: Document 11/19/18 13:51 [facility] (Rec: 11/19/18 18:09 [facility] [id number]) Posture Evaluation Comments Posture Comments fwd head & shoulders; L cervical tilt PT-OP-K Range of Motion Start: 11/18/18 18:59 Freq: Status: Active Protocol: Document 11/19/18 13:51 [facility] (Rec: 11/19/18 14:37 [facility] [id number]) Cervical Spine Range of Motion Cervical Spine Active Degrees Testing Position Sitting Flexion 48 Extension 52 Rotation Left 58 Rotation Right 62 Lateral Flexion Left 48 Lateral Flexion Right 45 Comments nausea w/flex & ext TMJ Range of Motion Jaw Openning Jaw Openning (mm) 40 Comments Comments R>L with deviation, Pt has change in tone of tinitus w/ jaw protrusion; R deviation with jaw opening PT-OP-L Special Tests Start: 11/18/18 18:59 Freq: Status: Active Protocol: Document 11/19/18 13:51 [facility] (Rec: 11/19/18 14:37 [facility] [id number]) Special Tests Cervical Spine Special Tests Vertebral Artery Test Results some pressure with L testing Alar Ligament Test Results neg spurling Test Results neg PT-OP-Q Treatments Start: 11/18/18 18:59 Freq: Status: Active Protocol: Document 11/19/18 13:51 [facility] (Rec: 11/19/18 18:09 [facility] [id number]) Therapeutic Exercises Sitting Exercises Rocobado Sitting Exercise Name 6x6 Reps/Minutes 6 ea Comments w/handout provided PT-OP-T Assessment and Plan Start: 11/18/18 18:59 Freq: Status: Active Protocol: Document 11/19/18 13:51 [facility] (Rec: 11/19/18 18:09 [facility] [id number]) Physical Therapy Assessment Rehab Potential Rehabilitation Potential Good Evaluation Complexity Number of Personal Factors/Comorbidities 3 or More Number of Body Systems Impaired 4 or More Clinical Presentation at Evaluation Evolving Impairments Impairments Activity Tolerance Posture Goals jaw Chcf Goal (LTG) Pt will be able to open and close and deviate without inc pain and open with good mechanics & no deviation. LTG Duration 01/20/19 dizziness Short Term Goal (STG) Pt will be indep with HEP STG Duration 12/20/18 Ladies Locker Room Attendant Goal (LTG) Pt will be able to manage dizziness, vertigo, nausea, and tinnitus symptoms independently. LTG Duration 01/20/19 functional activity Short Term Goal (STG) Pt will be able to present with good posture without cueing. STG Duration 12/20/18 Chcf Goal (LTG) Pt will be able to lift without inc neck pain or other symptoms. LTG Duration 01/20/19 Assessment Summary Assessment Pt presents with largest c/o tinnitus with unknown cause, but also dizziness, nausea, and fullness of ears. She has some limits in TMJ ROM and has a dysfunctional opening/ closing pattern, but doesn't have significant pain. TMJ dysfunction may be contributing to symptoms, but unable to fully tell at this time. Pt may have a vestibular component to her symptoms, but will require futher vestibular workup. Physical Therapy Plan Frequency and Duration Frequency of Treatment 1-2x/week Duration of Treatment 2 months Plan of Care Start Date 11/19/18 Plan of Care End Date 01/20/19 Therapeutic Interventions Therapeutic Interventions Balance Training Canalithic Repositioning Coordination Training Home Exercise Program Joint Mobilizations Manual Therapy Neuromuscular Re-education Patient/Caregiver Education Self-Care/Home Management Soft Tissue Mobilization Taping Therapeutic Activities Therapeutic Exercises Vestibular Rehabilitation Modalities Cold Pack/Ice Massage Electric Stimulation Hot Packs Ultrasound Next Visit Focus/Plan Next Note Type Treatment Note Next Visit Plan Assess vestibular function when seen by vestibular therapist, work on soft tissue & postural stability; sleep posture
--- NOTE | 2018-11-19 18:10 | PT.OPPOC ---
Current Diagnoses Tinnitus, bilateral (11/19/18) Cervicalgia (11/19/18) Abnormal posture (11/19/18) Jaw pain (11/19/18) Provider Visit Care Team Role Provider Type Antoine Forde MD Primary Care Provider Physician Specialty: Wound Care Address: [address] [place] [address], [id number] Email: [email or web address] MD Attending Provider Physician Specialty: Ear, Nose, Throat Address: [address] [place] [address], [phone] Email: Plan Of Care PT-OP-T Assessment and Plan Start: 11/18/18 18:59 Freq: Status: Active Protocol: Document 11/19/18 13:51 [facility] (Rec: 11/19/18 18:09 [facility] [id number]) Physical Therapy Assessment Rehab Potential Rehabilitation Potential Good Evaluation Complexity Number of Personal Factors/Comorbidities 3 or More Number of Body Systems Impaired 4 or More Clinical Presentation at Evaluation Evolving Impairments Impairments Activity Tolerance Posture Goals jaw Long-Term Goal (LTG) Pt will be able to open and close and deviate without inc pain and open with good mechanics & no deviation. LTG Duration 01/20/19 dizziness Short Term Goal (STG) Pt will be indep with HEP STG Duration 12/20/18 Long-Term Goal (LTG) Pt will be able to manage dizziness, vertigo, nausea, and tinnitus symptoms independently. LTG Duration 01/20/19 functional activity Short Term Goal (STG) Pt will be able to present with good posture without cueing. STG Duration 12/20/18 Long-Term Goal (LTG) Pt will be able to lift without inc neck pain or other symptoms. LTG Duration 01/20/19 Assessment Summary Assessment Pt presents with largest c/o tinnitus with unknown cause, but also dizziness, nausea, and fullness of ears. She has some limits in TMJ ROM and has a dysfunctional opening/ closing pattern, but doesn't have significant pain. TMJ dysfunction may be contributing to symptoms, but unable to fully tell at this time. Pt may have a vestibular component to her symptoms, but will require futher vestibular workup. Physical Therapy Plan Frequency and Duration Frequency of Treatment 1-2x/week Duration of Treatment 2 months Plan of Care Start Date 11/19/18 Plan of Care End Date 01/20/19 Therapeutic Interventions Therapeutic Interventions Balance Training Canalithic Repositioning Coordination Training Home Exercise Program Joint Mobilizations Manual Therapy Neuromuscular Re-education Patient/Caregiver Education Self-Care/Home Management Soft Tissue Mobilization Taping Therapeutic Activities Therapeutic Exercises Vestibular Rehabilitation Modalities Cold Pack/Ice Massage Electric Stimulation Hot Packs Ultrasound Next Visit Focus/Plan Next Note Type Treatment Note Next Visit Plan Assess vestibular function when seen by vestibular therapist, work on soft tissue & postural stability; sleep posture Plan of Care Dates Plan of Care Start Date 11/19/18 Plan of Care End Date 01/20/19 Please Sign and Return: I have reviewed this Plan of Care and certify that the skilled therapy services above are required to meet the patient?s needs. Physician Signature Date Printed Name and Credentials Clinical Instructor Signature Printed Name and Credentials
--- NOTE | 2018-12-03 15:14 | PT.OTN ---
Current Diagnoses Tinnitus, bilateral (12/03/18) Cervicalgia (12/03/18) Abnormal posture (12/03/18) Jaw pain (12/03/18) Physical Therapy Treatment Note PT-OP-A Visit Information Start: 11/18/18 18:59 Freq: Status: Active Protocol: Document 12/03/18 15:04 [facility] (Rec: 12/03/18 15:14 [facility] [id number]) Out-Patient Physical Therapy Visit Information Visit Information Visit Type Treatment Note Visit Start Time 13:45 Visit Stop Time 14:25 Total Visit Minutes 40 Visit Number 2 Number of INFRASTRUCTURE ANALYST Visits 0 PT-OP-B Current Condition Start: 11/18/18 18:59 Freq: Status: Active Protocol: Document 11/19/18 13:51 [facility] (Rec: 11/19/18 14:37 [facility] [id number]) Current Condition History of Current Condition Onset Date 8 months ago Current Complaints tinnitus History of Current Condition Pt reports she has had ringing in her ears that is constant. SHe notes she doesn't notice it as much except when going to sleep. 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 Pt reports she was recently treated for bacterial infjection in her gut and just finished antibiotics but has not been retested. Pt reports tinnitus started after a crown placed on her teeth. Pt reprots that she had a lot of pain with that and also started to go back to the chiropractor when this all started. Pt reports she had dizziness since a few years after the stroke. Pt reports some falls since stroke. Pt reports she had a tonsil abcess in November of 2016 and had tonsils removed and sinuses reduced. Reports when she turns over in bed, she gets dizziness sometimes and she often gets the falling sensation when trying to fall asleep. Pt reports intermittent [place] and can go long periods without getting one to getting them for long periods like for 3 weeks. No specific location and reports they are not too bad and have happened for about 6 years intermittently. Reports she sometimes feels nauseaus and like she is moving when she isn't. Pt reprots some frozen preserved foods and chocolate bother her tinnitus. Pt reports she cannot sleep d/t ringing in her ears that is like a ayala ringing or a loud ringing. When laying on back, she has the vertigo sensation. Pt reprots neck pain daily that gets aggrevated by lifting things and she has a 5 year old. Pt reports nausea about 5x/week with no specific pattern of the day or with specific foods . Reports that started after she had her stroke. Reports when she had her stroke, she was . Pt gets ear aches since she got her tonsils out and feels ear pressure. Pt reports that its very intermittent. Pt reports blurred vision for about 1 hour in the AM. Reports she hasn't seen an optomologist since stroke. Pt reports also being diagnosed with fibromyalgia w/pain that is better now than when she was diagnosed about 5 years ago Prior Treatments and Tests Recent imaging of arteries available in chart, seen ENT but no vestibular testing done ; mouth guard for grinding, but no help Treatment Goals Patient/Caregiver Goals Get rid of the ringing in her ears, dec dizziness, nausea and vertigo, learn lifting mechanics PT-OP-C Subjective Start: 11/18/18 18:59 Freq: Status: Active Protocol: Document 12/03/18 15:04 [facility] (Rec: 12/03/18 15:14 [facility] [id number]) OP-PT Subjective Patient Comments Patient Comments Pt reports tinnitus isn't bad today. no change with exercises PT-OP-F Manual Assessment Start: 11/18/18 18:59 Freq: Status: Active Protocol: Document 11/19/18 13:51 [facility] (Rec: 11/19/18 18:09 [facility] [id number]) Manual Assessments Soft Tissue Assessment Soft Tissue Mobility Assessment tightness throughout neck mm & jaw closing mm (temporalis, masseter, digastric) and cranial fascia PT-OP-J Posture/Palpation/Skin Start: 11/18/18 18:59 Freq: Status: Active Protocol: Document 11/19/18 13:51 [facility] (Rec: 11/19/18 18:09 [facility] [id number]) Posture Evaluation Comments Posture Comments fwd head & shoulders; L cervical tilt PT-OP-K Range of Motion Start: 11/18/18 18:59 Freq: Status: Active Protocol: Document 11/19/18 13:51 [facility] (Rec: 11/19/18 14:37 [facility] [id number]) Cervical Spine Range of Motion Cervical Spine Active Degrees Testing Position Sitting Flexion 48 Extension 52 Rotation Left 58 Rotation Right 62 Lateral Flexion Left 48 Lateral Flexion Right 45 Comments nausea w/flex & ext TMJ Range of Motion Jaw Openning Jaw Openning (mm) 40 Comments Comments R>L with deviation, Pt has change in tone of tinitus w/ jaw protrusion; R deviation with jaw opening PT-OP-L Special Tests Start: 11/18/18 18:59 Freq: Status: Active Protocol: Document 11/19/18 13:51 [facility] (Rec: 11/19/18 14:37 [facility] [id number]) Special Tests Cervical Spine Special Tests Vertebral Artery Test Results some pressure with L testing Alar Ligament Test Results neg spurling Test Results neg PT-OP-Q Treatments Start: 11/18/18 18:59 Freq: Status: Active Protocol: Document 12/03/18 15:04 [facility] (Rec: 12/03/18 15:14 [facility] [id number]) Therapeutic Exercises Supine Exercises breathing Supine Exercise Name diaphragmatic breathing Sitting Exercises Rocobado Sitting Exercise Name 6x6 Reps/Minutes 6 ea Comments w/handout provided Manual Therapy Treatment Soft Tissue Mobilization masseter Body Location R Mobilization Type Rolling Intensity/Depth Moderate ptyerigoid Body Location internal Mobilization Type Sustained Pressure cranial fascia Body Location B Mobilization Type Myofascial Release Intensity/Depth Superficial Joint Mobilizations TMJ Joint L Direction distraction Grade II PT-OP-T Assessment and Plan Start: 11/18/18 18:59 Freq: Status: Active Protocol: Document 12/03/18 15:04 [facility] (Rec: 12/03/18 15:14 [facility] [id number]) Physical Therapy Assessment Goals jaw Half-Way Goal (LTG) Pt will be able to open and close and deviate without inc pain and open with good mechanics & no deviation. LTG Duration 01/20/19 dizziness Short Term Goal (STG) Pt will be indep with HEP STG Duration 12/20/18 Superintendent Of Generation Goal (LTG) Pt will be able to manage dizziness, vertigo, nausea, and tinnitus symptoms independently. LTG Duration 01/20/19 functional activity Short Term Goal (STG) Pt will be able to present with good posture without cueing. STG Duration 12/20/18 Half-Way Goal (LTG) Pt will be able to lift without inc neck pain or other symptoms. LTG Duration 01/20/19 Assessment Summary Assessment Pt had improved soft tissue mobility and reported feeling looser through head and neck after treatment. D/t no tinnitus except when covering L ear today, no change was made obviously with tinnitus but she had improved jaw motion with less deviation with opening. She was able to perform her exercises well but had difficulty with diaphragmic breathing and did require cueing. Physical Therapy Plan Frequency and Duration Frequency of Treatment 1-2x/week Duration of Treatment 2 months Plan of Care Start Date 11/19/18 Plan of Care End Date 01/20/19 Next Visit Focus/Plan Next Note Type Treatment Note Next Visit Plan Assess vestibular function when seen by vestibular therapist, work on soft tissue & postural stability; sleep posture
--- NOTE | 2018-12-24 17:26 | PT.OTN ---
Current Diagnoses Tinnitus, bilateral (12/24/18) Cervicalgia (12/24/18) Abnormal posture (12/24/18) Jaw pain (12/24/18) Physical Therapy Treatment Note PT-OP-A Visit Information Start: 11/18/18 18:59 Freq: Status: Active Protocol: Document 12/24/18 17:21 [facility] (Rec: 12/25/18 10:26 [facility] [id number]) Out-Patient Physical Therapy Visit Information Visit Information Visit Type Treatment Note Visit Start Time 16:00 Visit Stop Time 16:40 Total Visit Minutes 40 Visit Number 3 Number of HEALTHCARE INTERPRETER Visits 0 PT-OP-B Current Condition Start: 11/18/18 18:59 Freq: Status: Active Protocol: Document 11/19/18 13:51 [facility] (Rec: 11/19/18 14:37 [facility] [id number]) Current Condition History of Current Condition Onset Date 8 months ago Current Complaints tinnitus History of Current Condition Pt reports she has had ringing in her ears that is constant. SHe notes she doesn't notice it as much except when going to sleep. 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 Pt reports she was recently treated for bacterial infjection in her gut and just finished antibiotics but has not been retested. Pt reports tinnitus started after a crown placed on her teeth. Pt reprots that she had a lot of pain with that and also started to go back to the chiropractor when this all started. Pt reports she had dizziness since a few years after the stroke. Pt reports some falls since stroke. Pt reports she had a tonsil abcess in November of 2016 and had tonsils removed and sinuses reduced. Reports when she turns over in bed, she gets dizziness sometimes and she often gets the falling sensation when trying to fall asleep. Pt reports intermittent R[place]ORD and can go long periods without getting one to getting them for long periods like for 3 weeks. No specific location and reports they are not too bad and have happened for about 6 years intermittently. Reports she sometimes feels nauseaus and like she is moving when she isn't. Pt reprots some frozen preserved foods and chocolate bother her tinnitus. Pt reports she cannot sleep d/t ringing in her ears that is like a ayala ringing or a loud ringing. When laying on back, she has the vertigo sensation. Pt reprots neck pain daily that gets aggrevated by lifting things and she has a 5 year old. Pt reports nausea about 5x/week with no specific pattern of the day or with specific foods . Reports that started after she had her stroke. Reports when she had her stroke, she was . Pt gets ear aches since she got her tonsils out and feels ear pressure. Pt reports that its very intermittent. Pt reports blurred vision for about 1 hour in the AM. Reports she hasn't seen an optomologist since stroke. Pt reports also being diagnosed with fibromyalgia w/pain that is better now than when she was diagnosed about 5 years ago Prior Treatments and Tests Recent imaging of arteries available in chart, seen ENT but no vestibular testing done ; mouth guard for grinding, but no help Treatment Goals Patient/Caregiver Goals Get rid of the ringing in her ears, dec dizziness, nausea and vertigo, learn lifting mechanics PT-OP-C Subjective Start: 11/18/18 18:59 Freq: Status: Active Protocol: Document 12/24/18 17:21 [facility] (Rec: 12/25/18 10:26 [facility] [id number]) OP-PT Subjective Patient Comments Patient Comments Pt feels like last session helped. She has had some wine the past couple days and feels like that has inc her tinnitius some. Patient Reported Progress Improving PT-OP-F Manual Assessment Start: 11/18/18 18:59 Freq: Status: Active Protocol: Document 11/19/18 13:51 [facility] (Rec: 11/19/18 18:09 [facility] [id number]) Manual Assessments Soft Tissue Assessment Soft Tissue Mobility Assessment tightness throughout neck mm & jaw closing mm (temporalis, masseter, digastric) and cranial fascia PT-OP-J Posture/Palpation/Skin Start: 11/18/18 18:59 Freq: Status: Active Protocol: Document 11/19/18 13:51 [facility] (Rec: 11/19/18 18:09 [facility] [id number]) Posture Evaluation Comments Posture Comments fwd head & shoulders; L cervical tilt PT-OP-K Range of Motion Start: 11/18/18 18:59 Freq: Status: Active Protocol: Document 11/19/18 13:51 [facility] (Rec: 11/19/18 14:37 [facility] [id number]) Cervical Spine Range of Motion Cervical Spine Active Degrees Testing Position Sitting Flexion 48 Extension 52 Rotation Left 58 Rotation Right 62 Lateral Flexion Left 48 Lateral Flexion Right 45 Comments nausea w/flex & ext TMJ Range of Motion Jaw Openning Jaw Openning (mm) 40 Comments Comments R>L with deviation, Pt has change in tone of tinitus w/ jaw protrusion; R deviation with jaw opening PT-OP-L Special Tests Start: 11/18/18 18:59 Freq: Status: Active Protocol: Document 11/19/18 13:51 [facility] (Rec: 11/19/18 14:37 [facility] [id number]) Special Tests Cervical Spine Special Tests Vertebral Artery Test Results some pressure with L testing Alar Ligament Test Results neg spurling Test Results neg PT-OP-Q Treatments Start: 11/18/18 18:59 Freq: Status: Active Protocol: Document 12/24/18 17:21 [facility] (Rec: 12/25/18 10:26 [facility] [id number]) Therapeutic Exercises Supine Exercises breathing Supine Exercise Name diaphragmatic breathing Manual Therapy Treatment Soft Tissue Mobilization digastric Body Location digastric and inf jaw Mobilization Type Rolling masseter Body Location R Mobilization Type Rolling Intensity/Depth Moderate ptyerigoid Body Location internal Mobilization Type Sustained Pressure cranial fascia Body Location B Mobilization Type Myofascial Release Intensity/Depth Superficial Joint Mobilizations TMJ Joint L Direction distraction with slight lat glding Grade II PT-OP-T Assessment and Plan Start: 11/18/18 18:59 Freq: Status: Active Protocol: Document 12/24/18 17:21 [facility] (Rec: 12/25/18 10:26 [facility] [id number]) Physical Therapy Assessment Goals jaw Cemetery Warden Goal (LTG) Pt will be able to open and close and deviate without inc pain and open with good mechanics & no deviation. LTG Duration 01/20/19 dizziness Short Term Goal (STG) Pt will be indep with HEP STG Duration 12/20/18 Detention Goal (LTG) Pt will be able to manage dizziness, vertigo, nausea, and tinnitus symptoms independently. LTG Duration 01/20/19 functional activity Short Term Goal (STG) Pt will be able to present with good posture without cueing. STG Duration 12/20/18 Detention Goal (LTG) Pt will be able to lift without inc neck pain or other symptoms. LTG Duration 01/20/19 Assessment Summary Assessment Pt encouraged to cont her exercises as they will help to keep the mm worked during therapy in more of a relaxed state which should cont to help with feeling less of the fullness in head feeling and tinnitus. Soft tissue mobility improves STM. Physical Therapy Plan Frequency and Duration Frequency of Treatment 1-2x/week Duration of Treatment 2 months Plan of Care Start Date 11/19/18 Plan of Care End Date 01/20/19 Next Visit Focus/Plan Next Note Type Treatment Note Next Visit Plan Assess vestibular function when seen by vestibular therapist, work on soft tissue & postural stability; sleep posture
--- NOTE | 2018-12-31 14:50 | PT.OTN ---
Current Diagnoses Tinnitus, bilateral (12/31/18) Cervicalgia (12/31/18) Abnormal posture (12/31/18) Jaw pain (12/31/18) Physical Therapy Treatment Note PT-OP-A Visit Information Start: 11/18/18 18:59 Freq: Status: Active Protocol: Document 12/31/18 14:38 [facility] (Rec: 12/31/18 14:50 [facility] [id number]) Out-Patient Physical Therapy Visit Information Visit Information Visit Type Treatment Note Visit Start Time 13:46 Visit Stop Time 14:26 Total Visit Minutes 40 Visit Number 4 Number of CHIEF DIVERSITY OFFICER Visits 0 PT-OP-B Current Condition Start: 11/18/18 18:59 Freq: Status: Active Protocol: Document 11/19/18 13:51 [facility] (Rec: 11/19/18 14:37 [facility] [id number]) Current Condition History of Current Condition Onset Date 8 months ago Current Complaints tinnitus History of Current Condition Pt reports she has had ringing in her ears that is constant. SHe notes she doesn't notice it as much except when going to sleep. 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 Pt reports she was recently treated for bacterial infjection in her gut and just finished antibiotics but has not been retested. Pt reports tinnitus started after a crown placed on her teeth. Pt reprots that she had a lot of pain with that and also started to go back to the chiropractor when this all started. Pt reports she had dizziness since a few years after the stroke. Pt reports some falls since stroke. Pt reports she had a tonsil abcess in November of 2016 and had tonsils removed and sinuses reduced. Reports when she turns over in bed, she gets dizziness sometimes and she often gets the falling sensation when trying to fall asleep. Pt reports intermittent [place] and can go long periods without getting one to getting them for long periods like for 3 weeks. No specific location and reports they are not too bad and have happened for about 6 years intermittently. Reports she sometimes feels nauseaus and like she is moving when she isn't. Pt reprots some frozen preserved foods and chocolate bother her tinnitus. Pt reports she cannot sleep d/t ringing in her ears that is like a ayala ringing or a loud ringing. When laying on back, she has the vertigo sensation. Pt reprots neck pain daily that gets aggrevated by lifting things and she has a 5 year old. Pt reports nausea about 5x/week with no specific pattern of the day or with specific foods . Reports that started after she had her stroke. Reports when she had her stroke, she was . Pt gets ear aches since she got her tonsils out and feels ear pressure. Pt reports that its very intermittent. Pt reports blurred vision for about 1 hour in the AM. Reports she hasn't seen an optomologist since stroke. Pt reports also being diagnosed with fibromyalgia w/pain that is better now than when she was diagnosed about 5 years ago Prior Treatments and Tests Recent imaging of arteries available in chart, seen ENT but no vestibular testing done ; mouth guard for grinding, but no help Treatment Goals Patient/Caregiver Goals Get rid of the ringing in her ears, dec dizziness, nausea and vertigo, learn lifting mechanics PT-OP-C Subjective Start: 11/18/18 18:59 Freq: Status: Active Protocol: Document 12/31/18 14:38 [facility] (Rec: 12/31/18 14:50 [facility] [id number]) OP-PT Subjective Patient Comments Patient Comments Pt saw vestibular therapist lst week who noted a difference and L eye functiona nd recommended seeing an optomologist and pt plans to follow up with that. She feels like the PT sessions have been helping with tinnitus. Notes she just has overall felt worse since vestibular eval. NOtes she cracked a tooth on L side last week and has a root canal scheduled now. Patient Reported Progress Improving PT-OP-F Manual Assessment Start: 11/18/18 18:59 Freq: Status: Active Protocol: Document 11/19/18 13:51 [facility] (Rec: 11/19/18 18:09 [facility] [id number]) Manual Assessments Soft Tissue Assessment Soft Tissue Mobility Assessment tightness throughout neck mm & jaw closing mm (temporalis, masseter, digastric) and cranial fascia PT-OP-J Posture/Palpation/Skin Start: 11/18/18 18:59 Freq: Status: Active Protocol: Document 11/19/18 13:51 [facility] (Rec: 11/19/18 18:09 [facility] [id number]) Posture Evaluation Comments Posture Comments fwd head & shoulders; L cervical tilt PT-OP-K Range of Motion Start: 11/18/18 18:59 Freq: Status: Active Protocol: Document 11/19/18 13:51 [facility] (Rec: 11/19/18 14:37 [facility] [id number]) Cervical Spine Range of Motion Cervical Spine Active Degrees Testing Position Sitting Flexion 48 Extension 52 Rotation Left 58 Rotation Right 62 Lateral Flexion Left 48 Lateral Flexion Right 45 Comments nausea w/flex & ext TMJ Range of Motion Jaw Openning Jaw Openning (mm) 40 Comments Comments R>L with deviation, Pt has change in tone of tinitus w/ jaw protrusion; R deviation with jaw opening PT-OP-L Special Tests Start: 11/18/18 18:59 Freq: Status: Active Protocol: Document 11/19/18 13:51 [facility] (Rec: 11/19/18 14:37 [facility] [id number]) Special Tests Cervical Spine Special Tests Vertebral Artery Test Results some pressure with L testing Alar Ligament Test Results neg spurling Test Results neg PT-OP-Q Treatments Start: 11/18/18 18:59 Freq: Status: Active Protocol: Document 12/31/18 14:38 [facility] (Rec: 12/31/18 14:50 [facility] [id number]) Manual Therapy Treatment Soft Tissue Mobilization masseter Body Location R masseter and temporalis Mobilization Type Rolling Intensity/Depth Moderate ptyerigoid Body Location internal Mobilization Type Sustained Pressure cranial fascia Body Location B Mobilization Type Myofascial Release Intensity/Depth Superficial Joint Mobilizations TMJ Joint L Direction distraction and PA FM Grade II PT-OP-T Assessment and Plan Start: 11/18/18 18:59 Freq: Status: Active Protocol: Document 12/31/18 14:38 [facility] (Rec: 12/31/18 14:50 [facility] [id number]) Physical Therapy Assessment Goals jaw Skilled Nursing Goal (LTG) Pt will be able to open and close and deviate without inc pain and open with good mechanics & no deviation. LTG Duration 01/20/19 dizziness Short Term Goal (STG) Pt will be indep with HEP STG Duration 12/20/18 Skilled Nursing Goal (LTG) Pt will be able to manage dizziness, vertigo, nausea, and tinnitus symptoms independently. LTG Duration 01/20/19 functional activity Short Term Goal (STG) Pt will be able to present with good posture without cueing. STG Duration 12/20/18 Distillery Laborer Goal (LTG) Pt will be able to lift without inc neck pain or other symptoms. LTG Duration 01/20/19 Assessment Summary Assessment Pt improved jaw opening and closing motion to no deviation after treatment. She had excessive ant glidingw ith opening on R and excessive post gliding on R with closing , whcih improved with mobilizations Physical Therapy Plan Frequency and Duration Frequency of Treatment 1-2x/week Duration of Treatment 2 months Plan of Care Start Date 11/19/18 Plan of Care End Date 01/20/19 Next Visit Focus/Plan Next Note Type Treatment Note Next Visit Plan posture and scap stability with lifting
--- NOTE | 2019-01-06 16:00 | PT.OTN ---
Current Diagnoses Tinnitus, bilateral (01/06/19) Cervicalgia (01/06/19) Abnormal posture (01/06/19) Jaw pain (01/06/19) Physical Therapy Treatment Note PT-OP-A Visit Information Start: 11/18/18 18:59 Freq: Status: Active Protocol: Document 01/06/19 15:50 [facility] (Rec: 01/06/19 16:00 [facility] [id number]) Out-Patient Physical Therapy Visit Information Visit Information Visit Type Treatment Note Visit Note 30 total in year Visit Start Time 10:30 Visit Stop Time 11:14 Total Visit Minutes 44 Visit Number 5 Number of HAIR BOILER OPERATOR Visits 0 PT-OP-B Current Condition Start: 11/18/18 18:59 Freq: Status: Active Protocol: Document 11/19/18 13:51 [facility] (Rec: 11/19/18 14:37 [facility] [id number]) Current Condition History of Current Condition Onset Date 8 months ago Current Complaints tinnitus History of Current Condition Pt reports she has had ringing in her ears that is constant. SHe notes she doesn't notice it as much except when going to sleep. 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 Pt reports she was recently treated for bacterial infjection in her gut and just finished antibiotics but has not been retested. Pt reports tinnitus started after a crown placed on her teeth. Pt reprots that she had a lot of pain with that and also started to go back to the chiropractor when this all started. Pt reports she had dizziness since a few years after the stroke. Pt reports some falls since stroke. Pt reports she had a tonsil abcess in November of 2016 and had tonsils removed and sinuses reduced. Reports when she turns over in bed, she gets dizziness sometimes and she often gets the falling sensation when trying to fall asleep. Pt reports intermittent [place] and can go long periods without getting one to getting them for long periods like for 3 weeks. No specific location and reports they are not too bad and have happened for about 6 years intermittently. Reports she sometimes feels nauseaus and like she is moving when she isn't. Pt reprots some frozen preserved foods and chocolate bother her tinnitus. Pt reports she cannot sleep d/t ringing in her ears that is like a ayala ringing or a loud ringing. When laying on back, she has the vertigo sensation. Pt reprots neck pain daily that gets aggrevated by lifting things and she has a 5 year old. Pt reports nausea about 5x/week with no specific pattern of the day or with specific foods . Reports that started after she had her stroke. Reports when she had her stroke, she was . Pt gets ear aches since she got her tonsils out and feels ear pressure. Pt reports that its very intermittent. Pt reports blurred vision for about 1 hour in the AM. Reports she hasn't seen an optomologist since stroke. Pt reports also being diagnosed with fibromyalgia w/pain that is better now than when she was diagnosed about 5 years ago Prior Treatments and Tests Recent imaging of arteries available in chart, seen ENT but no vestibular testing done ; mouth guard for grinding, but no help Treatment Goals Patient/Caregiver Goals Get rid of the ringing in her ears, dec dizziness, nausea and vertigo, learn lifting mechanics PT-OP-C Subjective Start: 11/18/18 18:59 Freq: Status: Active Protocol: Document 01/06/19 15:50 [facility] (Rec: 01/06/19 16:00 [facility] [id number]) OP-PT Subjective Patient Comments Patient Comments Pt reports she feels like her tinnitus has been better since starting PT. Reports she has also been sleeping through the night. Patient Reported Progress Improving PT-OP-F Manual Assessment Start: 11/18/18 18:59 Freq: Status: Active Protocol: Document 11/19/18 13:51 [facility] (Rec: 11/19/18 18:09 [facility] [id number]) Manual Assessments Soft Tissue Assessment Soft Tissue Mobility Assessment tightness throughout neck mm & jaw closing mm (temporalis, masseter, digastric) and cranial fascia PT-OP-J Posture/Palpation/Skin Start: 11/18/18 18:59 Freq: Status: Active Protocol: Document 11/19/18 13:51 [facility] (Rec: 11/19/18 18:09 [facility] [id number]) Posture Evaluation Comments Posture Comments fwd head & shoulders; L cervical tilt PT-OP-K Range of Motion Start: 11/18/18 18:59 Freq: Status: Active Protocol: Document 11/19/18 13:51 [facility] (Rec: 11/19/18 14:37 [facility] [id number]) Cervical Spine Range of Motion Cervical Spine Active Degrees Testing Position Sitting Flexion 48 Extension 52 Rotation Left 58 Rotation Right 62 Lateral Flexion Left 48 Lateral Flexion Right 45 Comments nausea w/flex & ext TMJ Range of Motion Jaw Openning Jaw Openning (mm) 40 Comments Comments R>L with deviation, Pt has change in tone of tinitus w/ jaw protrusion; R deviation with jaw opening PT-OP-L Special Tests Start: 11/18/18 18:59 Freq: Status: Active Protocol: Document 11/19/18 13:51 [facility] (Rec: 11/19/18 14:37 [facility] [id number]) Special Tests Cervical Spine Special Tests Vertebral Artery Test Results some pressure with L testing Alar Ligament Test Results neg spurling Test Results neg PT-OP-Q Treatments Start: 11/18/18 18:59 Freq: Status: Active Protocol: Document 01/06/19 15:50 [facility] (Rec: 01/06/19 16:00 [facility] [id number]) Therapeutic Activity Therapeutic Activity lifting Name lifting edu with focus on neutral head & scap position to dec tension posture Name standing posture edu Manual Therapy Treatment Soft Tissue Mobilization digastric Body Location digastric and inf jaw Mobilization Type Rolling masseter Body Location R masseter and temporalis Mobilization Type Rolling Intensity/Depth Moderate cranial fascia Body Location B Mobilization Type Myofascial Release Intensity/Depth Superficial PT-OP-T Assessment and Plan Start: 11/18/18 18:59 Freq: Status: Active Protocol: Document 01/06/19 15:50 [facility] (Rec: 01/06/19 16:00 [facility] [id number]) Physical Therapy Assessment Goals jaw Assisted Goal (LTG) Pt will be able to open and close and deviate without inc pain and open with good mechanics & no deviation. LTG Duration 01/20/19 dizziness Short Term Goal (STG) Pt will be indep with HEP STG Duration 12/20/18 Architecture Manager Goal (LTG) Pt will be able to manage dizziness, vertigo, nausea, and tinnitus symptoms independently. LTG Duration 01/20/19 functional activity Short Term Goal (STG) Pt will be able to present with good posture without cueing. STG Duration 12/20/18 Architecture Manager Goal (LTG) Pt will be able to lift without inc neck pain or other symptoms. LTG Duration 01/20/19 Assessment Summary Assessment Pt presented today with improved jaw motion with dec deviation. She improved posture & lifitng mechanics with less cervical involvement in the lifting in order to dec pressure of the cranial region. Physical Therapy Plan Frequency and Duration Frequency of Treatment 1-2x/week Duration of Treatment 2 months Plan of Care Start Date 11/19/18 Plan of Care End Date 01/20/19 Next Visit Focus/Plan Next Note Type Treatment Note Next Visit Plan cont to work on postural stability & scap stability for improved neck positioning
--- NOTE | 2019-01-29 18:28 | PT.OTN ---
Current Diagnoses Tinnitus, bilateral (01/29/19) Cervicalgia (01/29/19) Abnormal posture (01/29/19) Jaw pain (01/29/19) Physical Therapy Treatment Note PT-OP-A Visit Information Start: 11/18/18 18:59 Freq: Status: Active Protocol: Document 01/29/19 14:58 [facility] (Rec: 01/29/19 18:28 [facility] [id number]) Out-Patient Physical Therapy Visit Information Visit Information Visit Type Progress Note Visit Note 30 total in year Visit Start Time 15:15 Visit Stop Time 16:00 Total Visit Minutes 45 Visit Number 6 Number of SENIOR ADVOCATE Visits 0 PT-OP-B Current Condition Start: 11/18/18 18:59 Freq: Status: Active Protocol: Document 11/19/18 13:51 [facility] (Rec: 11/19/18 14:37 [facility] [id number]) Current Condition History of Current Condition Onset Date 8 months ago Current Complaints tinnitus History of Current Condition Pt reports she has had ringing in her ears that is constant. SHe notes she doesn't notice it as much except when going to sleep. 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 Pt reports she was recently treated for bacterial infjection in her gut and just finished antibiotics but has not been retested. Pt reports tinnitus started after a crown placed on her teeth. Pt reprots that she had a lot of pain with that and also started to go back to the chiropractor when this all started. Pt reports she had dizziness since a few years after the stroke. Pt reports some falls since stroke. Pt reports she had a tonsil abcess in November of 2016 and had tonsils removed and sinuses reduced. Reports when she turns over in bed, she gets dizziness sometimes and she often gets the falling sensation when trying to fall asleep. Pt reports intermittent [place] and can go long periods without getting one to getting them for long periods like for 3 weeks. No specific location and reports they are not too bad and have happened for about 6 years intermittently. Reports she sometimes feels nauseaus and like she is moving when she isn't. Pt reprots some frozen preserved foods and chocolate bother her tinnitus. Pt reports she cannot sleep d/t ringing in her ears that is like a ayala ringing or a loud ringing. When laying on back, she has the vertigo sensation. Pt reprots neck pain daily that gets aggrevated by lifting things and she has a 5 year old. Pt reports nausea about 5x/week with no specific pattern of the day or with specific foods . Reports that started after she had her stroke. Reports when she had her stroke, she was . Pt gets ear aches since she got her tonsils out and feels ear pressure. Pt reports that its very intermittent. Pt reports blurred vision for about 1 hour in the AM. Reports she hasn't seen an optomologist since stroke. Pt reports also being diagnosed with fibromyalgia w/pain that is better now than when she was diagnosed about 5 years ago Prior Treatments and Tests Recent imaging of arteries available in chart, seen ENT but no vestibular testing done ; mouth guard for grinding, but no help Treatment Goals Patient/Caregiver Goals Get rid of the ringing in her ears, dec dizziness, nausea and vertigo, learn lifting mechanics PT-OP-C Subjective Start: 11/18/18 18:59 Freq: Status: Active Protocol: Document 01/29/19 14:58 [facility] (Rec: 01/29/19 18:28 [facility] [id number]) OP-PT Subjective Patient Comments Patient Comments Pt reports dec frequency of her symptoms. Notes complaince with HEP. Patient Reported Progress Improving PT-OP-F Manual Assessment Start: 11/18/18 18:59 Freq: Status: Active Protocol: Document 11/19/18 13:51 [facility] (Rec: 11/19/18 18:09 [facility] [id number]) Manual Assessments Soft Tissue Assessment Soft Tissue Mobility Assessment tightness throughout neck mm & jaw closing mm (temporalis, masseter, digastric) and cranial fascia PT-OP-J Posture/Palpation/Skin Start: 11/18/18 18:59 Freq: Status: Active Protocol: Document 11/19/18 13:51 [facility] (Rec: 11/19/18 18:09 [facility] [id number]) Posture Evaluation Comments Posture Comments fwd head & shoulders; L cervical tilt PT-OP-K Range of Motion Start: 11/18/18 18:59 Freq: Status: Active Protocol: Document 11/19/18 13:51 [facility] (Rec: 11/19/18 14:37 [facility] [id number]) Cervical Spine Range of Motion Cervical Spine Active Degrees Testing Position Sitting Flexion 48 Extension 52 Rotation Left 58 Rotation Right 62 Lateral Flexion Left 48 Lateral Flexion Right 45 Comments nausea w/flex & ext TMJ Range of Motion Jaw Openning Jaw Openning (mm) 40 Comments Comments R>L with deviation, Pt has change in tone of tinitus w/ jaw protrusion; R deviation with jaw opening PT-OP-L Special Tests Start: 11/18/18 18:59 Freq: Status: Active Protocol: Document 11/19/18 13:51 [facility] (Rec: 11/19/18 14:37 [facility] [id number]) Special Tests Cervical Spine Special Tests Vertebral Artery Test Results some pressure with L testing Alar Ligament Test Results neg spurling Test Results neg PT-OP-Q Treatments Start: 11/18/18 18:59 Freq: Status: Active Protocol: Document 01/29/19 14:58 [facility] (Rec: 01/29/19 18:28 [facility] [id number]) Therapeutic Exercises Sitting Exercises scap retraction Sitting Exercise Name retraction & depression Side bilateral Reps/Minutes 10 Comments focus on isolation of scapula vs thoracic cage Manual Therapy Treatment Soft Tissue Mobilization digastric Body Location digastric and inf & post jaw Mobilization Type Rolling masseter Body Location R masseter and temporalis Mobilization Type Rolling Intensity/Depth Moderate cranial fascia Body Location B Mobilization Type Myofascial Release Intensity/Depth Superficial PT-OP-T Assessment and Plan Start: 11/18/18 18:59 Freq: Status: Active Protocol: Document 01/29/19 14:58 [facility] (Rec: 01/29/19 18:28 [facility] [id number]) Physical Therapy Assessment Goals jaw Usp Goal (LTG) Pt will be able to open and close and deviate without inc pain and open with good mechanics & no deviation. LTG Duration achieved dizziness Short Term Goal (STG) Pt will be indep with HEP STG Duration achieved-progressing as needed Remote Sensing Technician Goal (LTG) Pt will be able to manage dizziness, vertigo, nausea, and tinnitus symptoms independently. 01/29-tinnitus is improving with treatment with less often flare ups LTG Duration 03/31/19 functional activity Short Term Goal (STG) Pt will be able to present with good posture without cueing. 01/29-improving but cueing required STG Duration 02/28/19 Usp Goal (LTG) Pt will be able to lift without inc neck pain or other symptoms. 01/29-improved awareness of positioning but still occasional inc pain LTG Duration 03/31/19 Assessment Summary Assessment Pt is improving with her jaw mechanics & mm and fascial tightness of face & TMJ mm. She has greater restricitons noted on R>L. She had improved with frequency of tinnitus with treatment and feels like PT is making a significant difference in her symptoms. She is progressing slower likely d/t dec consistancy of appointments d/t scheduling conflicts. Physical Therapy Plan Frequency and Duration Frequency of Treatment 1x/Week Duration of Treatment 2 months Plan of Care Start Date 01/29/19 Plan of Care End Date 03/31/19 Therapeutic Interventions Therapeutic Interventions Aquatic Therapy,Balance Training,Gait Training,Home Exercise Program,Joint Mobilizations,Manual Therapy, Neuromuscular Re-education, Patient/Caregiver Education, Self-Care/Home Management,Soft Tissue Mobilization,Taping, Therapeutic Activities, Therapeutic Exercises Modalities Cold Pack/Ice Massage,Hot Packs Next Visit Focus/Plan Next Note Type Treatment Note Next Visit Plan cont to work on postural stability & scap stability for improved neck positioning
--- NOTE | 2019-01-29 18:28 | PT.OPPOC ---
Current Diagnoses Tinnitus, bilateral (01/29/19) Cervicalgia (01/29/19) Abnormal posture (01/29/19) Jaw pain (01/29/19) Visit Care Team Role Provider Type Antoine Forde MD Primary Care Provider Physician Specialty: Wound Care Address: [address] [place] [address], [id number] Email: [email or web address] Stephen Suresh MD Attending Provider Physician Specialty: Ear, Nose, Throat Address: [address] [place] [address], [id number] Email: [email or web address] Plan Of Care PT-OP-T Assessment and Plan Start: 11/18/18 18:59 Freq: Status: Active Protocol: Document 01/29/19 14:58 [facility] (Rec: 01/29/19 18:28 [facility] [id number]) Physical Therapy Assessment Goals jaw Snf Goal (LTG) Pt will be able to open and close and deviate without inc pain and open with good mechanics & no deviation. LTG Duration achieved dizziness Short Term Goal (STG) Pt will be indep with HEP STG Duration achieved-progressing as needed Snf Goal (LTG) Pt will be able to manage dizziness, vertigo, nausea, and tinnitus symptoms independently. 01/29-tinnitus is improving with treatment with less often flare ups LTG Duration 03/31/19 functional activity Short Term Goal (STG) Pt will be able to present with good posture without cueing. 01/29-improving but cueing required STG Duration 02/28/19 Snf Goal (LTG) Pt will be able to lift without inc neck pain or other symptoms. 01/29-improved awareness of positioning but still occasional inc pain LTG Duration 03/31/19 Assessment Summary Assessment Pt is improving with her jaw mechanics & mm and fascial tightness of face & TMJ mm. She has greater restricitons noted on R>L. She had improved with frequency of tinnitus with treatment and feels like PT is making a significant difference in her symptoms. She is progressing slower likely d/t dec consistancy of appointments d/t scheduling conflicts. Physical Therapy Plan Frequency and Duration Frequency of Treatment 1x/Week Duration of Treatment 2 months Plan of Care Start Date 01/29/19 Plan of Care End Date 03/31/19 Therapeutic Interventions Therapeutic Interventions Aquatic Therapy,Balance Training,Gait Training,Home Exercise Program,Joint Mobilizations,Manual Therapy, Neuromuscular Re-education, Patient/Caregiver Education, Self-Care/Home Management,Soft Tissue Mobilization,Taping, Therapeutic Activities, Therapeutic Exercises Modalities Cold Pack/Ice Massage,Hot Packs Next Visit Focus/Plan Next Note Type Treatment Note Next Visit Plan cont to work on postural stability & scap stability for improved neck positioning Plan of Care Dates Plan of Care Start Date 01/29/19 Plan of Care End Date 03/31/19 Please Sign and Return: I have reviewed this Plan of Care and certify that the skilled therapy services above are required to meet the patient?s needs. Physician Signature Date Printed Name and Credentials Clinical Instructor Signature Printed Name and Credentials
--- NOTE | 2019-02-11 14:12 | PT.OTN ---
Current Diagnoses Tinnitus, bilateral (02/11/19) Cervicalgia (02/11/19) Abnormal posture (02/11/19) Jaw pain (02/11/19) Physical Therapy Treatment Note PT-OP-A Visit Information Start: 11/18/18 18:59 Freq: Status: Active Protocol: Document 02/11/19 13:56 [facility] (Rec: 02/11/19 14:12 [facility] [id number]) Out-Patient Physical Therapy Visit Information Visit Information Visit Type Treatment Note Visit Start Time 13:01 Visit Stop Time 13:45 Total Visit Minutes 44 Visit Number 7 Number of TONNAGE COMPILATION CLERK Visits 0 PT-OP-B Current Condition Start: 11/18/18 18:59 Freq: Status: Active Protocol: Document 11/19/18 13:51 [facility] (Rec: 11/19/18 14:37 [facility] [id number]) Current Condition History of Current Condition Onset Date 8 months ago Current Complaints tinnitus History of Current Condition Pt reports she has had ringing in her ears that is constant. SHe notes she doesn't notice it as much except when going to sleep. 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 Pt reports she was recently treated for bacterial infjection in her gut and just finished antibiotics but has not been retested. Pt reports tinnitus started after a crown placed on her teeth. Pt reprots that she had a lot of pain with that and also started to go back to the chiropractor when this all started. Pt reports she had dizziness since a few years after the stroke. Pt reports some falls since stroke. Pt reports she had a tonsil abcess in November of 2016 and had tonsils removed and sinuses reduced. Reports when she turns over in bed, she gets dizziness sometimes and she often gets the falling sensation when trying to fall asleep. Pt reports intermittent [place] and can go long periods without getting one to getting them for long periods like for 3 weeks. No specific location and reports they are not too bad and have happened for about 6 years intermittently. Reports she sometimes feels nauseaus and like she is moving when she isn't. Pt reprots some frozen preserved foods and chocolate bother her tinnitus. Pt reports she cannot sleep d/t ringing in her ears that is like a ayala ringing or a loud ringing. When laying on back, she has the vertigo sensation. Pt reprots neck pain daily that gets aggrevated by lifting things and she has a 5 year old. Pt reports nausea about 5x/week with no specific pattern of the day or with specific foods . Reports that started after she had her stroke. Reports when she had her stroke, she was . Pt gets ear aches since she got her tonsils out and feels ear pressure. Pt reports that its very intermittent. Pt reports blurred vision for about 1 hour in the AM. Reports she hasn't seen an optomologist since stroke. Pt reports also being diagnosed with fibromyalgia w/pain that is better now than when she was diagnosed about 5 years ago Prior Treatments and Tests Recent imaging of arteries available in chart, seen ENT but no vestibular testing done ; mouth guard for grinding, but no help Treatment Goals Patient/Caregiver Goals Get rid of the ringing in her ears, dec dizziness, nausea and vertigo, learn lifting mechanics PT-OP-C Subjective Start: 11/18/18 18:59 Freq: Status: Active Protocol: Document 02/11/19 13:56 [facility] (Rec: 02/11/19 14:12 [facility] [id number]) OP-PT Subjective Patient Comments Patient Comments Pt reports tinnitus has overall been pretty good and she has noticed less jaw tightness overall recently, but notes she had inc neck & jaw tightness when lifting something heavy overhead. Patient Reported Progress Improving PT-OP-F Manual Assessment Start: 11/18/18 18:59 Freq: Status: Active Protocol: Document 11/19/18 13:51 [facility] (Rec: 11/19/18 18:09 [facility] [id number]) Manual Assessments Soft Tissue Assessment Soft Tissue Mobility Assessment tightness throughout neck mm & jaw closing mm (temporalis, masseter, digastric) and cranial fascia PT-OP-J Posture/Palpation/Skin Start: 11/18/18 18:59 Freq: Status: Active Protocol: Document 11/19/18 13:51 [facility] (Rec: 11/19/18 18:09 [facility] [id number]) Posture Evaluation Comments Posture Comments fwd head & shoulders; L cervical tilt PT-OP-K Range of Motion Start: 11/18/18 18:59 Freq: Status: Active Protocol: Document 11/19/18 13:51 [facility] (Rec: 11/19/18 14:37 [facility] [id number]) Cervical Spine Range of Motion Cervical Spine Active Degrees Testing Position Sitting Flexion 48 Extension 52 Rotation Left 58 Rotation Right 62 Lateral Flexion Left 48 Lateral Flexion Right 45 Comments nausea w/flex & ext TMJ Range of Motion Jaw Openning Jaw Openning (mm) 40 Comments Comments R>L with deviation, Pt has change in tone of tinitus w/ jaw protrusion; R deviation with jaw opening PT-OP-L Special Tests Start: 11/18/18 18:59 Freq: Status: Active Protocol: Document 11/19/18 13:51 [facility] (Rec: 11/19/18 14:37 [facility] [id number]) Special Tests Cervical Spine Special Tests Vertebral Artery Test Results some pressure with L testing Alar Ligament Test Results neg spurling Test Results neg PT-OP-Q Treatments Start: 11/18/18 18:59 Freq: Status: Active Protocol: Document 02/11/19 13:56 [facility] (Rec: 02/11/19 14:12 [facility] [id number]) Therapeutic Exercises Standing Exercises flex Standing Exercise Name w/retraction & HAbd Side bilateral Equipment Used L1 Reps/Minutes 10 Comments in mirror to watch for UT engagement ER Standing Exercise Name focus on scap mechanics & neutral neck Side bilateral Equipment Used L1 Reps/Minutes 10 row Side bilateral Equipment Used L1 Reps/Minutes 10 Therapeutic Activity Therapeutic Activity lifting Name lifting edu with focus on neutral head & scap position to dec tension Comments working on scap & jaw/tongue position; edu on how tongue position can affect strength; edu of using breathing to help dec pain if has pain inc Manual Therapy Treatment Soft Tissue Mobilization digastric Body Location digastric and inf & post jaw & hyoid mm Mobilization Type Rolling ptyerigoid Body Location B intraoral Mobilization Type Sustained Pressure Intensity/Depth Moderate cranial fascia Body Location B Mobilization Type Myofascial Release Intensity/Depth Superficial PT-OP-T Assessment and Plan Start: 11/18/18 18:59 Freq: Status: Active Protocol: Document 02/11/19 13:56 [facility] (Rec: 02/11/19 14:12 [facility] [id number]) Physical Therapy Assessment Goals jaw Folder And Notcher Goal (LTG) Pt will be able to open and close and deviate without inc pain and open with good mechanics & no deviation. LTG Duration achieved dizziness Short Term Goal (STG) Pt will be indep with HEP STG Duration achieved-progressing as needed Folder And Notcher Goal (LTG) Pt will be able to manage dizziness, vertigo, nausea, and tinnitus symptoms independently. 01/29-tinnitus is improving with treatment with less often flare ups LTG Duration 03/31/19 functional activity Short Term Goal (STG) Pt will be able to present with good posture without cueing. 01/29-improving but cueing required STG Duration 02/28/19 Folder And Notcher Goal (LTG) Pt will be able to lift without inc neck pain or other symptoms. 01/29-improved awareness of positioning but still occasional inc pain LTG Duration 03/31/19 Assessment Summary Assessment Pt was able to improve lifting position with cueing and was able to dec cervical involvement to dec tension in jaw. Spend time educating re: importance of toungue position for jaw position & pt very receptive. Physical Therapy Plan Frequency and Duration Frequency of Treatment 1x/Week Duration of Treatment 2 months Plan of Care Start Date 01/29/19 Plan of Care End Date 03/31/19 Next Visit Focus/Plan Next Note Type Treatment Note Next Visit Plan cont to work on postural stability & scap stability for improved neck positioning to dec overall jaw tension
--- NOTE | 2019-02-17 12:05 | PT.OTN ---
Current Diagnoses Tinnitus, bilateral (02/17/19) Cervicalgia (02/17/19) Abnormal posture (02/17/19) Jaw pain (02/17/19) Physical Therapy Treatment Note PT-OP-A Visit Information Start: 11/18/18 18:59 Freq: Status: Active Protocol: Document 02/17/19 11:58 [facility] (Rec: 02/17/19 12:04 [facility] [id number]) Out-Patient Physical Therapy Visit Information Visit Information Visit Type Treatment Note Visit Start Time 10:35 Visit Stop Time 11:14 Total Visit Minutes 39 Visit Number 8 Number of LANDSCAPE HORTICULTURE INSTRUCTOR Visits 0 PT-OP-B Current Condition Start: 11/18/18 18:59 Freq: Status: Active Protocol: Document 11/19/18 13:51 [facility] (Rec: 11/19/18 14:37 [facility] [id number]) Current Condition History of Current Condition Onset Date 8 months ago Current Complaints tinnitus History of Current Condition Pt reports she has had ringing in her ears that is constant. SHe notes she doesn't notice it as much except when going to sleep. 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 Pt reports she was recently treated for bacterial infjection in her gut and just finished antibiotics but has not been retested. Pt reports tinnitus started after a crown placed on her teeth. Pt reprots that she had a lot of pain with that and also started to go back to the chiropractor when this all started. Pt reports she had dizziness since a few years after the stroke. Pt reports some falls since stroke. Pt reports she had a tonsil abcess in November of 2016 and had tonsils removed and sinuses reduced. Reports when she turns over in bed, she gets dizziness sometimes and she often gets the falling sensation when trying to fall asleep. Pt reports intermittent [place] and can go long periods without getting one to getting them for long periods like for 3 weeks. No specific location and reports they are not too bad and have happened for about 6 years intermittently. Reports she sometimes feels nauseaus and like she is moving when she isn't. Pt reprots some frozen preserved foods and chocolate bother her tinnitus. Pt reports she cannot sleep d/t ringing in her ears that is like a ayala ringing or a loud ringing. When laying on back, she has the vertigo sensation. Pt reprots neck pain daily that gets aggrevated by lifting things and she has a 5 year old. Pt reports nausea about 5x/week with no specific pattern of the day or with specific foods . Reports that started after she had her stroke. Reports when she had her stroke, she was . Pt gets ear aches since she got her tonsils out and feels ear pressure. Pt reports that its very intermittent. Pt reports blurred vision for about 1 hour in the AM. Reports she hasn't seen an optomologist since stroke. Pt reports also being diagnosed with fibromyalgia w/pain that is better now than when she was diagnosed about 5 years ago Prior Treatments and Tests Recent imaging of arteries available in chart, seen ENT but no vestibular testing done ; mouth guard for grinding, but no help Treatment Goals Patient/Caregiver Goals Get rid of the ringing in her ears, dec dizziness, nausea and vertigo, learn lifting mechanics PT-OP-C Subjective Start: 11/18/18 18:59 Freq: Status: Active Protocol: Document 02/17/19 11:58 [facility] (Rec: 02/17/19 12:05 [facility] [id number]) OP-PT Subjective Patient Comments Patient Comments Pt reports inc in tinnitus today but notes she ate a lot of sugar this weekend and has noticed some sinus pressure PT-OP-F Manual Assessment Start: 11/18/18 18:59 Freq: Status: Active Protocol: Document 11/19/18 13:51 [facility] (Rec: 11/19/18 18:09 [facility] [id number]) Manual Assessments Soft Tissue Assessment Soft Tissue Mobility Assessment tightness throughout neck mm & jaw closing mm (temporalis, masseter, digastric) and cranial fascia PT-OP-J Posture/Palpation/Skin Start: 11/18/18 18:59 Freq: Status: Active Protocol: Document 11/19/18 13:51 [facility] (Rec: 11/19/18 18:09 [facility] [id number]) Posture Evaluation Comments Posture Comments fwd head & shoulders; L cervical tilt PT-OP-K Range of Motion Start: 11/18/18 18:59 Freq: Status: Active Protocol: Document 11/19/18 13:51 [facility] (Rec: 11/19/18 14:37 [facility] [id number]) Cervical Spine Range of Motion Cervical Spine Active Degrees Testing Position Sitting Flexion 48 Extension 52 Rotation Left 58 Rotation Right 62 Lateral Flexion Left 48 Lateral Flexion Right 45 Comments nausea w/flex & ext TMJ Range of Motion Jaw Openning Jaw Openning (mm) 40 Comments Comments R>L with deviation, Pt has change in tone of tinitus w/ jaw protrusion; R deviation with jaw opening PT-OP-L Special Tests Start: 11/18/18 18:59 Freq: Status: Active Protocol: Document 11/19/18 13:51 [facility] (Rec: 11/19/18 14:37 [facility] [id number]) Special Tests Cervical Spine Special Tests Vertebral Artery Test Results some pressure with L testing Alar Ligament Test Results neg spurling Test Results neg PT-OP-Q Treatments Start: 11/18/18 18:59 Freq: Status: Active Protocol: Document 02/17/19 11:58 [facility] (Rec: 02/17/19 12:04 [facility] [id number]) Gym Equipment Cable Column (Body Solid) Rows Details focus on scap motion Reps/Time 10 Lat Pull Down Details focus on scap motion Reps/Time 10 Therapeutic Exercises Standing Exercises flex Standing Exercise Name w/retraction & HAbd Side bilateral Equipment Used L1 Reps/Minutes 10 Comments in mirror to watch for UT engagement ER Standing Exercise Name focus on scap mechanics & neutral neck Side bilateral Equipment Used L1 Reps/Minutes 10 row Side bilateral Equipment Used L1 Reps/Minutes 10 Manual Therapy Treatment Soft Tissue Mobilization digastric Body Location digastric and inf & post jaw & hyoid mm Mobilization Type Rolling masseter Body Location R masseter and temporalis Mobilization Type Rolling Intensity/Depth Moderate ptyerigoid Body Location B intraoral Mobilization Type Sustained Pressure Intensity/Depth Moderate cranial fascia Body Location B Mobilization Type Myofascial Release Intensity/Depth Superficial PT-OP-T Assessment and Plan Start: 11/18/18 18:59 Freq: Status: Active Protocol: Document 02/17/19 11:58 [facility] (Rec: 02/17/19 12:04 [facility] [id number]) Physical Therapy Assessment Goals jaw Home Lending Officer Goal (LTG) Pt will be able to open and close and deviate without inc pain and open with good mechanics & no deviation. LTG Duration achieved dizziness Short Term Goal (STG) Pt will be indep with HEP STG Duration achieved-progressing as needed Senior Living Goal (LTG) Pt will be able to manage dizziness, vertigo, nausea, and tinnitus symptoms independently. 01/29-tinnitus is improving with treatment with less often flare ups LTG Duration 03/31/19 functional activity Short Term Goal (STG) Pt will be able to present with good posture without cueing. 01/29-improving but cueing required STG Duration 02/28/19 Home Lending Officer Goal (LTG) Pt will be able to lift without inc neck pain or other symptoms. 01/29-improved awareness of positioning but still occasional inc pain LTG Duration 03/31/19 Assessment Summary Assessment Pt is improving with exercises without UT activitiation but did have difficulty with HAbd with flex unless manual faciliation given for scapula B. She had inc tightness in B hyoid & digastric mm. Physical Therapy Plan Frequency and Duration Frequency of Treatment 1x/Week Duration of Treatment 2 months Plan of Care Start Date 01/29/19 Plan of Care End Date 03/31/19 Next Visit Focus/Plan Next Note Type Treatment Note Next Visit Plan cont to work on postural stability & scap stability for improved neck positioning to dec overall jaw tension
--- NOTE | 2019-03-17 14:12 | PT.OTN ---
Current Diagnoses Tinnitus, bilateral (03/17/19) Cervicalgia (03/17/19) Abnormal posture (03/17/19) Jaw pain (03/17/19) Physical Therapy Treatment Note PT-OP-A Visit Information Start: 11/18/18 18:59 Freq: Status: Active Protocol: Document 03/17/19 13:14 [facility] (Rec: 03/17/19 14:12 [facility] [id number]) Out-Patient Physical Therapy Visit Information Visit Information Visit Type Treatment Note Visit Start Time 11:17 Visit Stop Time 12:00 Total Visit Minutes 43 Visit Number 9 Number of FRENCH FOLDING MACHINE OPERATOR Visits 0 PT-OP-B Current Condition Start: 11/18/18 18:59 Freq: Status: Active Protocol: Document 11/19/18 13:51 [facility] (Rec: 11/19/18 14:37 [facility] [id number]) Current Condition History of Current Condition Onset Date 8 months ago Current Complaints tinnitus History of Current Condition Pt reports she has had ringing in her ears that is constant. SHe notes she doesn't notice it as much except when going to sleep. 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 Pt reports she was recently treated for bacterial infjection in her gut and just finished antibiotics but has not been retested. Pt reports tinnitus started after a crown placed on her teeth. Pt reprots that she had a lot of pain with that and also started to go back to the chiropractor when this all started. Pt reports she had dizziness since a few years after the stroke. Pt reports some falls since stroke. Pt reports she had a tonsil abcess in November of 2016 and had tonsils removed and sinuses reduced. Reports when she turns over in bed, she gets dizziness sometimes and she often gets the falling sensation when trying to fall asleep. Pt reports intermittent [place] and can go long periods without getting one to getting them for long periods like for 3 weeks. No specific location and reports they are not too bad and have happened for about 6 years intermittently. Reports she sometimes feels nauseaus and like she is moving when she isn't. Pt reprots some frozen preserved foods and chocolate bother her tinnitus. Pt reports she cannot sleep d/t ringing in her ears that is like a ayala ringing or a loud ringing. When laying on back, she has the vertigo sensation. Pt reprots neck pain daily that gets aggrevated by lifting things and she has a 5 year old. Pt reports nausea about 5x/week with no specific pattern of the day or with specific foods . Reports that started after she had her stroke. Reports when she had her stroke, she was . Pt gets ear aches since she got her tonsils out and feels ear pressure. Pt reports that its very intermittent. Pt reports blurred vision for about 1 hour in the AM. Reports she hasn't seen an optomologist since stroke. Pt reports also being diagnosed with fibromyalgia w/pain that is better now than when she was diagnosed about 5 years ago Prior Treatments and Tests Recent imaging of arteries available in chart, seen ENT but no vestibular testing done ; mouth guard for grinding, but no help Treatment Goals Patient/Caregiver Goals Get rid of the ringing in her ears, dec dizziness, nausea and vertigo, learn lifting mechanics PT-OP-C Subjective Start: 11/18/18 18:59 Freq: Status: Active Protocol: Document 03/17/19 13:14 [facility] (Rec: 03/17/19 14:12 [facility] [id number]) OP-PT Subjective Patient Comments Patient Comments Pt reports inc neck soreness after last session and after helping her friend move. Notes jaw tension is significantly dec and not as much of a problem any more. Tinnitus has been up and down. PT-OP-F Manual Assessment Start: 11/18/18 18:59 Freq: Status: Active Protocol: Document 11/19/18 13:51 [facility] (Rec: 11/19/18 18:09 [facility] [id number]) Manual Assessments Soft Tissue Assessment Soft Tissue Mobility Assessment tightness throughout neck mm & jaw closing mm (temporalis, masseter, digastric) and cranial fascia PT-OP-J Posture/Palpation/Skin Start: 11/18/18 18:59 Freq: Status: Active Protocol: Document 11/19/18 13:51 [facility] (Rec: 11/19/18 18:09 [facility] [id number]) Posture Evaluation Comments Posture Comments fwd head & shoulders; L cervical tilt PT-OP-K Range of Motion Start: 11/18/18 18:59 Freq: Status: Active Protocol: Document 11/19/18 13:51 [facility] (Rec: 11/19/18 14:37 [facility] [id number]) Cervical Spine Range of Motion Cervical Spine Active Degrees Testing Position Sitting Flexion 48 Extension 52 Rotation Left 58 Rotation Right 62 Lateral Flexion Left 48 Lateral Flexion Right 45 Comments nausea w/flex & ext TMJ Range of Motion Jaw Openning Jaw Openning (mm) 40 Comments Comments R>L with deviation, Pt has change in tone of tinitus w/ jaw protrusion; R deviation with jaw opening PT-OP-L Special Tests Start: 11/18/18 18:59 Freq: Status: Active Protocol: Document 11/19/18 13:51 [facility] (Rec: 11/19/18 14:37 [facility] [id number]) Special Tests Cervical Spine Special Tests Vertebral Artery Test Results some pressure with L testing Alar Ligament Test Results neg spurling Test Results neg PT-OP-Q Treatments Start: 11/18/18 18:59 Freq: Status: Active Protocol: Document 03/17/19 13:14 [facility] (Rec: 03/17/19 14:12 [facility] [id number]) Manual Therapy Treatment Soft Tissue Mobilization digastric Body Location digastric and inf & post jaw & hyoid mm Mobilization Type Rolling ptyerigoid Body Location B intraoral Mobilization Type Sustained Pressure Intensity/Depth Moderate cranial fascia Body Location B Mobilization Type Myofascial Release Intensity/Depth Superficial Joint Mobilizations TMJ Direction R distraction, L distraction with L glide, L PA Self-Care/Home Management Treatment Education Other Education Discussed finding out if massage may be a benefit through her insurance as massage appears to be most helpful, Discussed possible d/ c d/t less progress recently PT-OP-T Assessment and Plan Start: 11/18/18 18:59 Freq: Status: Active Protocol: Document 03/17/19 13:14 [facility] (Rec: 03/17/19 14:12 [facility] [id number]) Physical Therapy Assessment Goals dizziness Short Term Goal (STG) Pt will be indep with HEP STG Duration achieved-progressing as needed Assisted Goal (LTG) Pt will be able to manage dizziness, vertigo, nausea, and tinnitus symptoms independently. 01/29-tinnitus is improving with treatment with less often flare ups LTG Duration 03/31/19 functional activity Short Term Goal (STG) Pt will be able to present with good posture without cueing. 01/29-improving but cueing required STG Duration 02/28/19 Commutator V Ring Assembler Goal (LTG) Pt will be able to lift without inc neck pain or other symptoms. 01/29-improved awareness of positioning but still occasional inc pain LTG Duration 03/31/19 Assessment Summary Assessment Pt reports relief with session . Discussed progression towards self management today d/t pt noting less progress recently. Physical Therapy Plan Frequency and Duration Frequency of Treatment 1x/Week Duration of Treatment 2 months Plan of Care Start Date 01/29/19 Plan of Care End Date 03/31/19 Next Visit Focus/Plan Next Note Type Discharge Summary Next Visit Plan Review HEP & posture & possible d/c if appropriate at next session.
--- NOTE | 2019-03-24 13:43 | PT.OTN ---
Current Diagnoses Tinnitus, bilateral (03/24/19) Cervicalgia (03/24/19) Abnormal posture (03/24/19) Jaw pain (03/24/19) Physical Therapy Treatment Note PT-OP-A Visit Information Start: 11/18/18 18:59 Freq: Status: Active Protocol: Document 03/24/19 13:18 [facility] (Rec: 03/24/19 13:43 [facility] [id number]) Out-Patient Physical Therapy Visit Information Visit Information Visit Type Treatment Note Visit Start Time 11:20 Visit Stop Time 12:00 Total Visit Minutes 40 Visit Number 10 Number of MIS MANAGER Visits 0 PT-OP-B Current Condition Start: 11/18/18 18:59 Freq: Status: Active Protocol: Document 11/19/18 13:51 [facility] (Rec: 11/19/18 14:37 [facility] [id number]) Current Condition History of Current Condition Onset Date 8 months ago Current Complaints tinnitus History of Current Condition Pt reports she has had ringing in her ears that is constant. SHe notes she doesn't notice it as much except when going to sleep. 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 Pt reports she was recently treated for bacterial infjection in her gut and just finished antibiotics but has not been retested. Pt reports tinnitus started after a crown placed on her teeth. Pt reprots that she had a lot of pain with that and also started to go back to the chiropractor when this all started. Pt reports she had dizziness since a few years after the stroke. Pt reports some falls since stroke. Pt reports she had a tonsil abcess in November of 2016 and had tonsils removed and sinuses reduced. Reports when she turns over in bed, she gets dizziness sometimes and she often gets the falling sensation when trying to fall asleep. Pt reports intermittent [place] and can go long periods without getting one to getting them for long periods like for 3 weeks. No specific location and reports they are not too bad and have happened for about 6 years intermittently. Reports she sometimes feels nauseaus and like she is moving when she isn't. Pt reprots some frozen preserved foods and chocolate bother her tinnitus. Pt reports she cannot sleep d/t ringing in her ears that is like a ayala ringing or a loud ringing. When laying on back, she has the vertigo sensation. Pt reprots neck pain daily that gets aggrevated by lifting things and she has a 5 year old. Pt reports nausea about 5x/week with no specific pattern of the day or with specific foods . Reports that started after she had her stroke. Reports when she had her stroke, she was . Pt gets ear aches since she got her tonsils out and feels ear pressure. Pt reports that its very intermittent. Pt reports blurred vision for about 1 hour in the AM. Reports she hasn't seen an optomologist since stroke. Pt reports also being diagnosed with fibromyalgia w/pain that is better now than when she was diagnosed about 5 years ago Prior Treatments and Tests Recent imaging of arteries available in chart, seen ENT but no vestibular testing done ; mouth guard for grinding, but no help Treatment Goals Patient/Caregiver Goals Get rid of the ringing in her ears, dec dizziness, nausea and vertigo, learn lifting mechanics PT-OP-C Subjective Start: 11/18/18 18:59 Freq: Status: Active Protocol: Document 03/24/19 13:18 [facility] (Rec: 03/24/19 13:43 [facility] [id number]) OP-PT Subjective Patient Comments Patient Comments Pt reports she feels like her jaw pain has been doing well but neck pain bothers her more & UT region which turns into [place]. PT-OP-F Manual Assessment Start: 11/18/18 18:59 Freq: Status: Active Protocol: Document 11/19/18 13:51 [facility] (Rec: 11/19/18 18:09 [facility] [id number]) Manual Assessments Soft Tissue Assessment Soft Tissue Mobility Assessment tightness throughout neck mm & jaw closing mm (temporalis, masseter, digastric) and cranial fascia PT-OP-J Posture/Palpation/Skin Start: 11/18/18 18:59 Freq: Status: Active Protocol: Document 11/19/18 13:51 [facility] (Rec: 11/19/18 18:09 [facility] [id number]) Posture Evaluation Comments Posture Comments fwd head & shoulders; L cervical tilt PT-OP-K Range of Motion Start: 11/18/18 18:59 Freq: Status: Active Protocol: Document 11/19/18 13:51 [facility] (Rec: 11/19/18 14:37 [facility] [id number]) Cervical Spine Range of Motion Cervical Spine Active Degrees Testing Position Sitting Flexion 48 Extension 52 Rotation Left 58 Rotation Right 62 Lateral Flexion Left 48 Lateral Flexion Right 45 Comments nausea w/flex & ext TMJ Range of Motion Jaw Openning Jaw Openning (mm) 40 Comments Comments R>L with deviation, Pt has change in tone of tinitus w/ jaw protrusion; R deviation with jaw opening PT-OP-L Special Tests Start: 11/18/18 18:59 Freq: Status: Active Protocol: Document 11/19/18 13:51 [facility] (Rec: 11/19/18 14:37 [facility] [id number]) Special Tests Cervical Spine Special Tests Vertebral Artery Test Results some pressure with L testing Alar Ligament Test Results neg spurling Test Results neg PT-OP-Q Treatments Start: 11/18/18 18:59 Freq: Status: Active Protocol: Document 03/24/19 13:18 [facility] (Rec: 03/24/19 13:43 [facility] [id number]) Therapeutic Exercises Sitting Exercises [place] Sitting Exercise Name 6x6 Reps/Minutes 6 reps of each exercise Manual Therapy Treatment Soft Tissue Mobilization digastric Body Location digastric and inf & post jaw & hyoid mm Mobilization Type Rolling masseter Body Location R masseter and temporalis Mobilization Type Rolling Intensity/Depth Moderate cranial fascia Body Location B Mobilization Type Myofascial Release Intensity/Depth Superficial Self-Care/Home Management Treatment Education Other Education Posture edu, scap & neck positioning neutral, edu to follow up with re: treatment for her neck and look into options for massage PT-OP-T Assessment and Plan Start: 11/18/18 18:59 Freq: Status: Active Protocol: Document 03/24/19 13:18 [facility] (Rec: 03/24/19 13:43 [facility] [id number]) Physical Therapy Assessment Goals dizziness Short Term Goal (STG) Pt will be indep with HEP STG Duration achieved Half-Way Goal (LTG) Pt will be able to manage dizziness, vertigo, nausea, and tinnitus symptoms independently. 01/29-tinnitus is improving with treatment with less often flare ups LTG Duration tinnitus improved functional activity Short Term Goal (STG) Pt will be able to present with good posture without cueing. 01/29-improving but cueing required STG Duration achieved with min cueing Half-Way Goal (LTG) Pt will be able to lift without inc neck pain or other symptoms. 01/29-improved awareness of positioning but still occasional inc pain LTG Duration cont difficulty-follow up w/MD re: neck Assessment Summary Assessment Pt made good improvements with symptoms and no longer has much pain or tightness in jaw and tinnitus has improved. She cont to have neck pain and was instructed to follow up with MD re: plan for neck treatment. Physical Therapy Plan Discharge Physical Therapy Discharge Reasons Plateau in Progress Discharge Comments Pt to cont HEP
== END 2019-03-27 12:59 ==
LOC: PHYS 11:15
PROVIDERS: PCP Internal Medicine; Visit Provider Otolaryngology
DX: H93.13 Tinnitus, bilateral (principal); R29.3 Abnormal posture; R68.84 Jaw pain; M54.2 Cervicalgia
CPT/HCPCS: 97110; 97140; 97162; 97530

== ENCOUNTER 2019-05-01 17:01 | Emergency (ER) | payer BC, SELFPAY ==
[2019-05-01 17:06] VITALS: BP 159/100; PULSE 88; RESP 15; TEMP 36.4; O2SAT 100; BMI 41.1
--- NOTE | 2019-05-01 18:30 | ED.ARRPALP ---
HPI - Arrhythmia/Palpitations General Chief Complaint: Arrhythmia/Palpitations Stated Complaint: palpitations, high blood pressure Time Seen by Provider: 05/01/19 18:06 Source: patient Mode of arrival: Ambulatory Limitations: no limitations History of Present Illness HPI narrative: 44-year-old female here for evaluation of palpitations and high blood pressure. Patient states that for the past several days if not weeks she has had palpitations. She states she feels like her heart is beating fast. She feels it more at night. She does get somewhat lightheaded what happens. States that last varying amount of times however can last up to hours. Denies any chest pain during the times. She states that she has been on blood pressure medications in the past but not now. She was at 1 of the local grocery stores when she decided take her blood pressure and she took it was elevated. Currently asymptomatic. Related Data Home Medications Medication Instructions Recorded Confirmed Bacillus coagulans [Probiotic (B. 1 cap PO DAILY 06/07/18 06/07/18 coagulans)] azelastine 1 spray INTRANASAL DAILY 06/07/18 06/07/18 Tums 2 - 3 tab PO PRN 12/24/18 12/24/18 bismuth subsalicylate PO PRN 12/24/18 12/24/18 olive leaf extract PO DAILY 12/24/18 12/24/18 pancreatin PO TID 12/24/18 12/24/18 red yeast rice 600 mg tablet 600 mg PO DAILY 12/24/18 12/24/18 Previous Rx's Medication Instructions Recorded rizatriptan 10 mg tablet 10 mg PO ONCE #10 tab 12/24/18 verapamil 120 mg tablet,extended 120 mg PO DAILY #30 tab 12/24/18 release Allergies Allergy/AdvReac Type Severity Reaction Status Date / Time amoxicillin [AMOXICILLIN] Allergy Mild RASH Verified 05/01/19 17:06 clavulanic acid Allergy Mild RASH Verified 05/01/19 17:06 [From AUGMENTIN] clarithromycin Allergy sweat, Verified 05/01/19 17:06 nausea, heart palpitations Review of Systems Constitutional Constitutional: Denies fever(s), Denies headache(s) and Denies weakness ENT Ears, Nose, Mouth, and Throat: Denies headache(s) Cardiovascular Cardiovascular: Denies chest pain, Reports rapid heart rate, Reports palpitations, Denies dyspnea and Denies orthopnea Respiratory Respiratory: Denies cough and Denies dyspnea Gastrointestinal Gastrointestinal: Denies abdominal pain, Denies nausea and Denies vomiting Genitourinary Genitourinary: Denies dysuria Musculoskeletal Musculoskeletal: Denies myalgias and Denies arthralgias Integumentary/Breasts Skin/Breast: Denies lesions and Denies rash Neurologic Neurologic: Denies headache(s) and Denies weakness Comments: Lightheadedness with the palpitations Psychiatric Psychiatric: Denies anxiety Endocrine Endocrine: Reports palpitations Hematologic/Lymphatic Hematologic/Lymphatic: Denies easy bleeding and Denies easy bruising Allergic/Immunologic Allergic/Immunologic: Denies urticaria Patient History Medical History CVA (cerebral vascular accident) (Acute) Vertebral artery dissection (Acute) Social History Smoking Status: Former smoker Smoking Status: Former smoker alcohol intake frequency: holidays/special occasions only Substance Use Type: does not use Exam Initial Vital Signs Initial Vital Signs: Vital Signs Temperature 97.6 F 05/01/19 17:06 Pulse Rate 88 05/01/19 17:06 Respiratory Rate 15 05/01/19 17:06 Blood Pressure 159/100 H 05/01/19 17:06 Pulse Oximetry 100 05/01/19 17:06 Const General: cooperative and comfortable Orientation: alert, awake and oriented x3 HENMT Head: normal to inspection and normocephalic Eyes General: appearance normal, both eyes and all related structures Chest Chest: No tenderness Resp Effort & Inspection: normal respiratory effort Auscultation: clear to auscultation bilaterally Cardio Rate: regular rate Rhythm: regular rhythm GI Inspection: non-distended Palpation: soft Skin Lesions: no lesions Rashes: no rashes Neuro General: alert, awake and oriented x3 Cognition: normal cognition Speech: speech normal Extrem General: normal to inspection and capillary refill normal Psych Appearance: grossly normal and well kempt Course Orders Ordered: ED Orders 05/01/19 17:11 EKG-12 Lead Stat 05/01/19 17:17 Basic Metabolic Panel Stat Complete Blood Count AUTO DIFF Stat Vital Signs Vital signs: Vital Signs - 8 hr 05/01/19 19:14 Pulse Rate 80 Respiratory Rate 19 Blood Pressure [Left Arm] 131/61 Pulse Oximetry 100 MDM - Arrhythmia/Palpitations Lab Data Attestation: I reviewed the patient's lab results. Result diagrams: 05/01/19 17:17 05/01/19 17:17 Labs: Lab Results 05/01/19 05/01/19 Range/Units 17:17 17:17 WBC 7.6 (4.5-11.0) X10^3/uL RBC 5.11 (4.0-5.2) X10^6/uL Hgb 14.1 (12.0-16.0) g/dL Hct 42.6 (36-46) % MCV 83.4 (80-100) fL MCH 27.6 (26-34) PG MCHC 33.1 (30-36) % RDW 14.9 H (11.6-14.8) % Plt Count 346 (150-400) X10^3/uL Neut % (Auto) 63.3 (50-75) % Lymph % (Auto) 28.5 (25-40) % [place] % (Auto) 5.6 (3-14) % Eos % (Auto) 1.7 L (2-4) % Baso % (Auto) 0.9 (0-2) % Neut # (Auto) 4800 (7888-4674) /uL Lymph # (Auto) 2200 (3165-7837) /uL [place] # (Auto) 400 (0-900) /uL Eos # (Auto) 100 (0-450) /uL Baso # (Auto) 100 (0-100) /uL Sodium 141 (137-145) mmol/L Potassium 3.5 (3.4-5.1) mmol/L Chloride 103 (98-107) mmol/L Carbon Dioxide 27 (22-32) mmol/L BUN 9 (7-17) mg/dL Creatinine 0.70 (0.52-1.04) mg/dL Estimated GFR > 60.0 (>60) mL/min BUN/Creatinine Ratio 12.9 (6-22) Glucose 124 H (70-100) mg/dL Calcium 9.4 (8.4-10.2) mg/dL ECG Data Attestation: I personally reviewed and interpreted this ECG as follows: Prior ECG tracings: not available for review Interpretation: Sinus rhythm Ventricular rate 89 Normal QRS Normal QTC No ST T wave changes MDM Narrative Medical decision making narrative: Patient is asymptomatic, her blood pressure improved after resting in the exam room. Her electrolytes are unremarkable. She was asymptomatic the time of the exam. EKG is unremarkable. No ectopy on the monitor he will being here in the emergency department. We did discuss follow-up instructions to include talk with her primary doctor about a Holter monitor. We discussed blood pressure and when to return to the emergency department for. Patient expressed understanding and agreement with plan. Discharge Plan Departure Patient Disposition: Home Clinical Impression: Palpitations Discharge Date/Time: 05/01/19 19:28 Instructions: DI for Palpitations Activity Restrictions/Additional Instructions: Recommend you contact your primary provider to discuss the indications for a Holter monitor. Take your blood pressure at home like we discussed. Return to the emergency department for any new or worsening symptoms. Prescriptions: No Action azelastine 137 mcg (0.1 %) aerosol,spray 1 spray Intranasal DAILY RF: 0 Bacillus coagulans [Probiotic (B. coagulans)] 10 billion cell capsule,delayed release(DR/EC) 1 cap PO DAILY RF: 0 bismuth subsalicylate PO PRNRF: 0 Tums 2 - 3 tab PO PRNRF: 0 red yeast rice 600 mg tablet 600 mg PO DAILY RF: 0 olive leaf extract PO DAILY RF: 0 pancreatin PO TID RF: 0 verapamil 120 mg tablet extended release 120 mg PO DAILY Qty: 30 RF: 5 rizatriptan 10 mg tablet 10 mg PO ONCE Qty: 10 RF: 3 Referrals: Antoine Forde MD [Primary Care Provider] -
[2019-05-01 18:42] LABS: BUN Creatinine Ratio 12.9 (6-22); Blood Urea Nitrogen 9 mg/dL (7-17); Calcium 9.4 mg/dL (8.4-10.2); Carbon Dioxide 27 mmol/L (22-32); Chloride 103 mmol/L (98-107); Estimated Glomerular Filt Rate > 60.0 mL/min (>60); Glucose 124 mg/dL (70-100); HEMOLYSIS 34 (0-50); Potassium 3.5 mmol/L (3.4-5.1); Sodium 141 mmol/L (137-145)
[2019-05-01 18:55] LABS: Add Manual Diff / Slide Review NO; Basophils Absolute Auto 100 /uL (0-100); Basophils Percent Auto 0.9 % (0-2); Eosinophils Absolute Auto 100 /uL (0-450); Eosinophils Percent Auto 1.7 % (2-4); Hematocrit 42.6 % (36-46); Hemoglobin 14.1 g/dL (12.0-16.0); Lymphocytes Absolute Auto 2200 /uL (1100-4500); Lymphocytes Percent Auto 28.5 % (25-40); Mean Corpuscular HGB Conc 33.1 % (30-36); Mean Corpuscular Hemoglobin 27.6 PG (26-34); Mean Corpuscular Volume 83.4 fL (80-100); Monocytes Absolute Auto 400 /uL (0-900); Monocytes Percent Auto 5.6 % (3-14); Neutrophils Absolute Auto 4800 /uL (1500-7000); Neutrophils Percent Auto 63.3 % (50-75); Platelet Count 346 X10^3/uL (150-400); Red Blood Cell Count 5.11 X10^6/uL (4.0-5.2); Red Cell Distribution Width 14.9 % (11.6-14.8); White Blood Cell Count 7.6 X10^3/uL (4.5-11.0)
[2019-05-01 19:14] VITALS: BP 131/61; PULSE 80; RESP 19; O2SAT 100
== END 2019-05-01 19:28 | disposition home or self-care (01) ==
PROVIDERS: Emergency Provider Emergency Medicine; Family Provider Internal Medicine; PCP Internal Medicine
DX: R00.2 Palpitations (principal); R00.0 Tachycardia, unspecified; I10 Essential (primary) hypertension
CPT/HCPCS: 36415; 80048; 85025; 93005; 93010; 99283; 99284

== ENCOUNTER → 2019-06-30 13:14 | Outpatient (CLI) | payer BC, SELFPAY ==
[2019-07-03 15:56] LABS: Urea Breath Test >18YRS NOT DETECTED
== END ==
PROVIDERS: Family Provider Internal Medicine; PCP Internal Medicine; Referring Provider Nurse Practitioner Family; Visit Provider Nurse Practitioner Family
DX: B96.89 Other specified bacterial agents as the cause of diseases classified elsewhere (principal)
CPT/HCPCS: 83013

== ENCOUNTER → 2020-02-14 14:39 | Outpatient (CLI) | payer BC, SELFPAY ==
--- NOTE | 2020-02-14 | DI.MG.S_ITS ---
BILATERAL DIGITAL SCREENING MAMMOGRAM 3D/2D WITH CAD: 02/14/2020 CLINICAL: Routine screening. Family history of breast cancer. Comparison is made to exams dated: 02/02/2018 mammogram, 08/09/2016 mammogram - [facility], and 09/01/2009 mammogram - [facility]. There are scattered fibroglandular elements in both breasts. Current study was also evaluated with a Computer Aided Detection (CAD) system. No significant masses, calcifications, or other findings are seen in either breast. There has been no significant interval change. IMPRESSION: NEGATIVE There is no mammographic evidence of malignancy. A 1 year screening mammogram is recommended. This exam was interpreted at Station ID: [id number]. NOTE: For mammograms, a report in lay terms will be sent to the patient. Approximately 15% of breast malignancies will not be visualized mammographically. In the management of a palpable breast mass, a negative mammogram must not discourage biopsy of a clinically suspicious lesion. Electronically Signed By: Mata mendes/saloni:02/16/2020 09:29:25 letter sent: Normal Exam ACR BI-RADS Category 1: Negative [id number]
== END ==
PROVIDERS: Family Provider Internal Medicine; PCP Registered Nurse; Referring Provider Registered Nurse; Visit Provider Registered Nurse
DX: Z12.31 Encounter for screening mammogram for malignant neoplasm of breast (principal); Z80.3 Family history of malignant neoplasm of breast
CPT/HCPCS: 77063; 77067

== ENCOUNTER → 2020-02-25 14:33 | Outpatient (CLI) | payer BC, SELFPAY ==
--- NOTE | 2020-02-25 | DI.US.S_ITS ---
PROCEDURE: US PELVIC COMPLETE INDICATIONS: PELVIC/PERINEAL PAIN TECHNIQUE: Real-time scanning was performed of the pelvic organs, with image documentation. Additional endovaginal scanning was necessary due to incomplete visualization of the adnexal and endometrial structures by transabdominal scanning. COMPARISON: None. FINDINGS: Transabdominal scanning: Limited scanning through the kidneys shows no hydronephrosis. No pathologic free abdominal or pelvic fluid. Endovaginal scanning: Uterus: Uterus is normal in size at 7.7 x 5.2 x 6.2 cm. The endometrium measures 5.8 mm in combined thickness. Ovaries: Normal ovaries measuring 3.6 x 1.9 x 2.6 cm on the right and 2.7 x 1.5 x 2.8 cm on the left. Simple 16 mm left ovarian cyst. No adnexal masses. IMPRESSION: Simple left ovarian cyst; otherwise no source for pelvic pain identified. Dictated by: Marcello Roberts [facility] Interpreted: Nikko Andre MD on 02/25/2020 at 15:26 Approved by: Nikko Andre M.D. on 02/25/2020 at 16:53
== END ==
PROVIDERS: Family Provider Internal Medicine; PCP Registered Nurse; Referring Provider Nurse Practitioner Family; Visit Provider Nurse Practitioner Family
DX: R10.2 Pelvic and perineal pain (principal); N83.292 Other ovarian cyst, left side
CPT/HCPCS: 76830; 76856

== ENCOUNTER → 2020-08-19 15:51 | Outpatient (CLI) | payer BC, SELFPAY ==
[2020-08-19] MEDS: COVID-19 VACC #1, MRNA(MOD) 100 MCG/0.5 ML VIAL IM (15:55)
== END ==
PROVIDERS: Family Provider Internal Medicine; PCP Registered Nurse; Visit Provider Internal Medicine
DX: Z23 Encounter for immunization (principal)
CPT/HCPCS: 0011A; 91301

== ENCOUNTER → 2020-09-16 15:35 | Outpatient (CLI) | payer BC, SELFPAY ==
[2020-09-16] MEDS: COVID-19 VACC #2, MRNA(MOD) 100 MCG/0.5 ML VIAL IM (15:38)
== END ==
PROVIDERS: Family Provider Internal Medicine; PCP Registered Nurse; Visit Provider Internal Medicine
DX: Z23 Encounter for immunization (principal)
CPT/HCPCS: 0012A; 91301

== ENCOUNTER 2020-12-19 04:17 | Emergency (ER) | payer BC, SELFPAY ==
[2020-12-19 04:20] VITALS: BP 161/93; PULSE 91; RESP 20; TEMP 36.3; O2SAT 97; BMI 43.7
--- NOTE | 2020-12-19 04:41 | DI.RAD.S_ITS ---
PROCEDURE: XR CHEST 1V INDICATIONS: chest pain TECHNIQUE: One view of the chest was acquired. COMPARISON: [facility], CR, XR CHEST 2V, 06/07/2018, 17:32. FINDINGS: Surgical changes and devices: None. Lungs and pleura: Lungs are clear. No pleural effusions or pneumothorax. Mediastinum: Mediastinal contours appear normal. Heart size is normal. Bones and chest wall: No suspicious bony lesions. Overlying soft tissues appear unremarkable. IMPRESSION: No acute process. Concordant with preliminary interpretation. Dictated by: Neno Bustos M.D. on 12/19/2020 at 7:34 Approved by: Neno Bustos M.D. on 12/19/2020 at 7:35
--- NOTE | 2020-12-19 05:00 | ED.CHESTPAIN ---
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 With her symptoms this morning she has a also having a bit of nausea but no vomiting or abdominal pain. Over the last year she has been struggling with back pain and over the last 2 months has significantly curtailed physical activity, she states she had been hiking up to 6 miles a day, because of the back pain. She has gained between 10 and 15 lb in the last 2 months. She was noticing increasing lower extremity edema earlier this week was seen by her primary care physician mid week and started on chlorthalidone to help with both the lower extremity edema in the elevated blood pressure. Within 48 hours of starting the chlorthalidone she was having increasing dyspnea, developed the chest pain, the orthopnea has not noticed significant resolution with the lower extremity edema. She does note that she has a sulfa allergy and chlorthalidone does have a sulfa component and can cross react with those allergies. Related Data Home Medications Medication Instructions Recorded Confirmed Bacillus coagulans 10 billion cell 1 cap PO DAILY 06/07/18 06/06/19 capsule,delayed release Tums 2 - 3 tab PO PRN 12/24/18 06/06/19 bismuth subsalicylate PO PRN 12/24/18 06/06/19 [Pepto-Bismol] olive leaf extract PO DAILY 12/24/18 06/06/19 pancreatin PO TID 12/24/18 06/06/19 red yeast rice 600 mg tablet 600 mg PO DAILY 12/24/18 06/06/19 Previous Rx's Medication Instructions Recorded rizatriptan 10 mg tablet 10 mg PO ONCE #10 tab 12/24/18 verapamil 120 mg tablet,extended 120 mg PO DAILY #30 tab 12/24/18 release furosemide 20 mg tablet 20 mg PO DAILY PRN #30 tab 12/19/20 metoprolol succinate 50 mg 50 mg PO DAILY #30 tab 12/19/20 tablet,extended release 24 hr Allergies Allergy/AdvReac Type Severity Reaction Status Date / Time amoxicillin [AMOXICILLIN] Allergy Mild RASH Verified 06/06/19 18:10 clavulanic acid Allergy Mild RASH Verified 06/06/19 18:10 [From AUGMENTIN] clarithromycin Allergy sweat, Verified 06/06/19 18:10 nausea, heart palpitations Review of Systems Review of Systems Narrative: Note increase and seasonal allergies symptoms over the last couple of months Remainder of complete review of systems is otherwise unremarkable except for that included in the HPI. Patient History Medical History Back pain CVA (cerebral vascular accident) Hypertension Lower extremity edema Vertebral artery dissection Surgical History No pertinent past surgical history Social History Smoking Status: Former smoker Smoking Status: Former smoker alcohol intake frequency: holidays/special occasions only Substance Use Type: does not use Exam Narrative Exam Narrative: General: Healthy appearing, in no acute distress. Able to give a complete and coherent history. Well-nourished well-developed HEENT: Moist mucous membranes, normal sclera with reactive pupils, Neck: No JVD, supple Respiratory: Lungs are clear to auscultation, no wheezing no rales no rhonchi. Full and symmetrical air movement Cardiac: Regular rate and rhythm no murmurs no bruits Abdomen: Soft, nontender, good bowel tones, no flank pain Skin: Warm and dry, no rashes, no chronic venous stasis changes Neurologic: Grossly neurologically intact with no obvious asymmetries or abnormalities Extremities: No trauma, well perfused, 1+ bilateral lower extremity edema (exam is after she has been sleeping all evening) Psych: Cooperative, appropriate insight and affect General: Healthy appearing, in no acute distress. Able to give a complete and coherent history. Well-nourished well-developed Initial Vital Signs Initial Vital Signs: Vital Signs Temperature 97.4 F L 12/19/20 04:20 Pulse Rate 91 H 12/19/20 04:20 Respiratory Rate 20 12/19/20 04:20 Blood Pressure 161/93 H 12/19/20 04:20 Pulse Oximetry 97 12/19/20 04:20 Course Orders Ordered: ED Orders 12/19/20 04:41 XR chest 1V Stat EKG-12 Lead Stat 12/19/20 04:55 Complete Blood Count AUTO DIFF Stat Comprehensive Metabolic Panel Stat Lipase Stat NT-proBNP (BNP-Adult 18+) Stat Troponin & CK Cardiac Panel Stat Discontinued Medications Albuterol (Albuterol 2.5 Mg/3 Ml Neb (Adult)) 2.5 mg INH NOW ONE Stop: 12/19/20 04:59 Last Admin: 12/19/20 05:10 Dose: 2.5 mg Documented by: JOBY Diphenhydramine HCl (Diphenhydramine 50 Mg/Ml Vial) 25 mg IV NOW ONE Stop: 12/19/20 04:59 Last Admin: 12/19/20 05:08 Dose: 25 mg Documented by: JOBY Methylprednisolone (Methylprednisolone 125 Mg/2 Ml Vial) 125 mg IV NOW ONE Stop: 12/19/20 04:59 Last Admin: 12/19/20 05:08 Dose: 125 mg Documented by: JOBY Vital Signs Vital signs: Vital Signs - 8 hr 12/19/20 04:20 12/19/20 05:16 12/19/20 05:30 Temperature 97.4 F L Pulse Rate 91 H 86 88 Respiratory Rate 20 6 L 12 Blood Pressure 161/93 H Pulse Oximetry 97 100 95 12/19/20 06:00 12/19/20 06:16 12/19/20 06:30 Temperature Pulse Rate 82 82 80 Respiratory Rate 12 18 10 L Blood Pressure Pulse Oximetry 96 98 94 MDM - Chest Pain Lab Data Result diagrams: 12/19/20 04:55 12/19/20 04:55 Labs: Lab Results 12/19/20 12/19/20 12/19/20 Range/Units 04:55 04:55 04:55 WBC 10.2 (4.5-11.0) X10^3/uL RBC 5.26 H (4.0-5.2) X10^6/uL Hgb 14.8 (12.0-16.0) g/dL Hct 45.1 (36-46) % MCV 85.8 (80-100) fL MCH 28.1 (26-34) PG MCHC 32.8 (30-36) % RDW 14.5 (11.6-14.8) % Plt Count 343 (150-400) X10^3/uL Neut % (Auto) 58.0 (50-75) % Lymph % (Auto) 31.4 (25-40) % [facility] % (Auto) 7.7 (3-14) % Eos % (Auto) 1.9 L (2-4) % Baso % (Auto) 1.0 (0-2) % Neut # (Auto) 5900 (2077-9359) /uL Lymph # (Auto) 3200 (2217-6866) /uL [facility] # (Auto) 800 (0-900) /uL Eos # (Auto) 200 (0-450) /uL Baso # (Auto) 100 (0-100) /uL Sodium 137 (137-145) mmol/L Potassium 4.0 (3.4-5.1) mmol/L Chloride 103 (98-107) mmol/L Carbon Dioxide 24 (22-32) mmol/L BUN 13 (7-17) mg/dL Creatinine 0.70 (0.52-1.04) mg/dL Estimated GFR > 60.0 (>60) mL/min BUN/Creatinine Ratio 18.6 (6-22) Glucose 110 H (70-100) mg/dL Calcium 9.5 (8.4-10.2) mg/dL Total Bilirubin 0.5 (0.2-1.3) mg/dL AST 26 (14-36) IU/L ALT 22 (<35) IU/L Alkaline Phosphatase 90 (38-126) U/L Total Creatine Kinase 66 (30-135) U/L CK-MB (CK-2) TNP CK-MB (CK-2) Rel Index TNP Troponin I < 0.012 (0.01-0.034) ng/mL NT-Pro-B Natriuret Pep 20 (<125) pg/mL Total Protein 8.4 H (6.3-8.2) g/dL Albumin 4.6 (3.5-5.0) g/dL Globulin 3.8 (1.7-4.1) g/dL Albumin/Globulin Ratio 1.2 (1.0-2.8) Lipase 85 (23-300) U/L ECG Data Interpretation: Sinus rhythm at a rate of 96 Normal axis, normal intervals No acute ischemic changes MDM Narrative Medical decision making narrative: Woman presents with chest pain and tightness that likely is a consequence of chlorthalidone that was started for lower extremity edema that the consequence of recent 15 lb weight gain secondary to a back injury over the last year. She responded nicely to the prednisone still is having a bit of costochondral tenderness. Cardiac workup is negative there is no evidence of acute coronary syndrome, congestive heart failure either on chest x-ray or lab work. No renal failure no kidney failure and no evidence of overall infection. Will ask her to do the following 1. Stop the chlorthalidone 2. Begin metoprolol 50 mg extended release daily for help with palpitations as well as blood pressure. Buy a blood pressure cuff and keep track of daily numbers to review with your primary care physician. 3. Used 20 mg of Lasix as needed for lower extremity edema. Recognize that compression socks may work equally well. 4. Consider increasing activity levels gradually. The recent 15 lb weight gain seems to be the difference with the lower extremity edema and the blood pressure. Increase activity will likely also help reduce the overall lower extremity edema 5. If your having trouble sleeping at night and still feeling like your having some seasonal allergy type symptoms, consider Benadryl for both sleep as well as Allergy Relief. 6. Make sure you schedule follow-up appointment with her primary care physician within the next 1-2 weeks with all of the medication changes we have discussed above 7. If you have worsening symptoms, please return to the ER Discharge Plan Departure Patient Disposition: Home Clinical Impression: Lower extremity edema, Acute costochondritis Hypertension Qualifiers: Hypertension type: primary hypertension Qualified Code(s): I10 - Essential (primary) hypertension Chest pain Qualifiers: Chest pain type: other chest pain Qualified Code(s): R07.89 - Other chest pain Instructions: DI for Costochondritis Activity Restrictions/Additional Instructions: Thank you for coming in today There is no evidence of heart attack, blood clot in your lungs, congestive heart failure, kidney failure or renal failure. I believe that the worsening dyspnea is secondary to an allergic reaction to the chlorthalidone. The lower extremity edema is because of decreased activity and recent weight gain. The mild shortness of breath is likely simply seasonal allergies. With the allergies and then increasing symptoms due to the addition of chlorthalidone you irritated muscles and costochondral joints which is what I believe is causing your central chest pain. We discussed the following plan: 1. Stop the chlorthalidone 2. Begin metoprolol 50 mg extended release daily for help with palpitations as well as blood pressure. Buy a blood pressure cuff and keep track of daily numbers to review with your primary care physician. One of the side effects of metoprolol will be that it decreases the actual palpitations you been having and decreases the sensation of the ones that you will continue to have. On telemetry during your emergency room stay there were no life-threatening heart arrhythmias and an occasional early heartbeat only. 3. Use 20 mg of Lasix as needed for lower extremity edema. Recognize that compression socks may work equally well. 4. Consider increasing activity levels gradually. The recent 15 lb weight gain seems to be the difference with the lower extremity edema and the blood pressure. Increase activity will likely also help reduce the overall lower extremity edema 5. If your having trouble sleeping at night and still feeling like your having some seasonal allergy type symptoms, consider Benadryl for both sleep as well as Allergy Relief. 6. Make sure you schedule follow-up appointment with her primary care physician within the next 1-2 weeks with all of the medication changes we have discussed above 7. If you have worsening symptoms, please return to the ER All prescriptions were electronically transmitted to [facility]'s Prescriptions: New metoprolol succinate 50 mg tablet extended release 24 hr 50 mg PO DAILY Qty: 30 RF: 1 furosemide 20 mg tablet 20 mg PO DAILY PRN (Reason: edema) Qty: 30 RF: 0 No Action Bacillus coagulans [Probiotic (B. coagulans)] 10 billion cell capsule,delayed release(DR/EC) 1 cap PO DAILY RF: 0 bismuth subsalicylate PO PRNRF: 0 Tums 2 - 3 tab PO PRNRF: 0 red yeast rice 600 mg tablet 600 mg PO DAILY RF: 0 olive leaf extract PO DAILY RF: 0 pancreatin PO TID RF: 0 verapamil 120 mg tablet extended release 120 mg PO DAILY Qty: 30 RF: 5 rizatriptan 10 mg tablet 10 mg PO ONCE Qty: 10 RF: 3 Referrals: Roge Chiu ARNP [Primary Care Provider] -
[2020-12-19 05:02] LABS: Add Manual Diff / Slide Review NO; Basophils Absolute Auto 100 /uL (0-100); Eosinophils Absolute Auto 200 /uL (0-450); Eosinophils Percent Auto 1.9 % (2-4); Hematocrit 45.1 % (36-46); Hemoglobin 14.8 g/dL (12.0-16.0); Lymphocytes Absolute Auto 3200 /uL (1100-4500); Lymphocytes Percent Auto 31.4 % (25-40); Mean Corpuscular HGB Conc 32.8 % (30-36); Mean Corpuscular Hemoglobin 28.1 PG (26-34); Mean Corpuscular Volume 85.8 fL (80-100); Monocytes Absolute Auto 800 /uL (0-900); Monocytes Percent Auto 7.7 % (3-14); Neutrophils Absolute Auto 5900 /uL (1500-7000); Platelet Count 343 X10^3/uL (150-400); Red Blood Cell Count 5.26 X10^6/uL (4.0-5.2); Red Cell Distribution Width 14.5 % (11.6-14.8); White Blood Cell Count 10.2 X10^3/uL (4.5-11.0)
[2020-12-19] MEDS: diphenhydrAMINE 50 MG/ML VIAL 25 MG IV (05:08)
[2020-12-19] MEDS: methylPREDNISolone 125 MG/2 ML VIAL IV (05:08)
[2020-12-19] MEDS: ALBUTEROL 2.5 MG/3 ML NEB (ADULT) INH (05:10)
[2020-12-19 05:14] LABS: Alanine Aminotransferase 22 IU/L (<35); Albumin 4.6 g/dL (3.5-5.0); Albumin Globulin Ratio 1.2 (1.0-2.8); Alkaline Phosphatase 90 U/L (38-126); Aspartate Aminotransferase 26 IU/L (14-36); BUN Creatinine Ratio 18.6 (6-22); Bilirubin Total 0.5 mg/dL (0.2-1.3); Blood Urea Nitrogen 13 mg/dL (7-17); Calcium 9.5 mg/dL (8.4-10.2); Carbon Dioxide 24 mmol/L (22-32); Chloride 103 mmol/L (98-107); Creatine Kinase 66 U/L (30-135); Estimated Glomerular Filt Rate > 60.0 mL/min (>60); Globulin 3.8 g/dL (1.7-4.1); Glucose 110 mg/dL (70-100); HEMOLYSIS 20 (0-50); Lipase 85 U/L (23-300); Sodium 137 mmol/L (137-145); Total Protein 8.4 g/dL (6.3-8.2)
[2020-12-19 05:16] VITALS: PULSE 86; RESP 6; O2SAT 100
[2020-12-19 05:23] LABS: NT-proBNP (BNP-Adult 18+) 20 pg/mL (<125)
[2020-12-19 05:26] LABS: Troponin I < 0.012 ng/mL (0.01-0.034)
[2020-12-19 05:30] VITALS: PULSE 88; RESP 12; O2SAT 95
[2020-12-19 06:00] VITALS: PULSE 82; RESP 12; O2SAT 96
[2020-12-19 06:16] VITALS: PULSE 82; RESP 18; O2SAT 98
[2020-12-19 06:30] VITALS: PULSE 80; RESP 10; O2SAT 94
--- NOTE | 2020-12-19 14:15 | PC.NURSE ---
Pt left prescription for chlorthalidone in ED after d/c. Called pt and she asked me to discard it which I did according to [facility] guidelines.
== END 2020-12-19 07:32 | disposition home or self-care (01) ==
PROVIDERS: Emergency Provider Emergency Medicine; Family Provider Internal Medicine; PCP Registered Nurse
DX: R60.0 Localized edema (principal); M94.0 Chondrocostal junction syndrome [Tietze]; I10 Essential (primary) hypertension; R07.89 Other chest pain; R06.00 Dyspnea, unspecified; R11.0 Nausea
CPT/HCPCS: 36415; 71045; 80053; 82550; 83690; 83880; 84484; 85025; 93005; 94640; 96374; 96375; 99284; J1200; J2930; J7613

== ENCOUNTER → 2020-12-23 14:48 | Outpatient (CLI) | payer BC, SELFPAY ==
[2020-12-23 15:50] LABS: COVID19 -Nasal RAPID Negative (Negative)
== END ==
PROVIDERS: Family Provider Internal Medicine; PCP Registered Nurse; Referring Provider Physician Assistant; Visit Provider Physician Assistant
DX: Z20.822 Contact with and (suspected) exposure to COVID-19 (principal)
CPT/HCPCS: 87635

== ENCOUNTER → 2021-01-10 17:00 | Outpatient (CLI) | payer BC, SELFPAY ==
--- NOTE | 2021-01-10 17:03 | DI.RAD.S_ITS ---
PROCEDURE: XR LUMBAR SPINE 2-3V INDICATIONS: LUMBAGO WITH SCIATICA,RIGHT SIDE TECHNIQUE: 2 views of the lumbar spine were acquired. COMPARISON: None. FINDINGS: Bones: 5 [id number] vertebrae are present. There is normal bony alignment. No vertebral body compression fractures. No suspicious bony lesions. Soft tissues: Overlying bowel gas pattern is normal. No suspicious soft tissue calcifications. IMPRESSION: Unremarkable radiographic examination of lumbar spine. Dictated by: Nikko Andre M.D. on 01/11/2021 at 10:07 Approved by: Nikko Andre M.D. on 01/11/2021 at 10:07
== END ==
PROVIDERS: PCP Nurse Practitioner Family; Referring Provider Nurse Practitioner Family; Visit Provider Nurse Practitioner Family
DX: M54.41 Lumbago with sciatica, right side (principal)
CPT/HCPCS: 72100

== ENCOUNTER → 2021-02-10 12:27 | Outpatient (CLI) | payer BC, SELFPAY ==
--- NOTE | 2021-02-10 12:31 | DI.US.S_ITS ---
PROCEDURE: US PERIPH VENOUS LOW EXTREM LT INDICATIONS: LEFT LEG PAIN AND SWELLING TECHNIQUE: Real-time imaging, as well as color and pulse Doppler interrogation, were performed of the lower extremity deep veins from the inguinal ligament to the popliteal fossa. COMPARISON: None. FINDINGS: The common femoral, femoral and popliteal veins are normally compressible, and free of intraluminal thrombus. Color and pulse Doppler demonstrate normal phasic intraluminal flow. There is normal augmentation response to distal compression maneuver. IMPRESSION: Negative for deep venous thrombosis. Dictated by: James Krishnamurthy M.D. on 02/10/2021 at 12:48 Approved by: James Krishnamurthy M.D. on 02/10/2021 at 12:48
== END ==
PROVIDERS: PCP Nurse Practitioner Family; Referring Provider Nurse Practitioner Family; Visit Provider Nurse Practitioner Family
DX: M79.605 Pain in left leg (principal)
CPT/HCPCS: 93971

== ENCOUNTER → 2021-02-17 13:55 | Outpatient (CLI) | payer BC, SELFPAY ==
--- NOTE | 2021-02-17 13:57 | DIET.PN1 ---
Dietary Progress Note Assessment: 46y F attending RD visit for help with nutrition as she has tendency for restrict/binge cycles as well as a few health conditions requiring diet modifications. Pt moves in and out of pre-DM (A1c 5.9), has a high reading, restricts carbs and loses weight, then when next test is good, goes back to default eating. Pt c fibromyalgia, recently injured back 1y ago (was hiking 3-5mi/d) and has gained 30# over past 1y, has SI dysfunction Pt gets heart palpitations when eating high carbs/high sugar/high fat foods, seems to be okay with veggies. Had zio patch which showed no abnormalities. Pt has GERD c hx h.pylori infection. Pt reports some mild BLE (indentation if wearing short socks overnight) Pt had stroke 2012 secondary to chiropractor tearing vertebral artery. Currently feeling more depressed than stressed out these days, experiencing quite a bit of fatigue which limits food prep ability. Was doing [employer]- 3meals/week to learn new cooking techniques, but often too fatigued to make the kits. Pt does not think she tolerates dairy or eggs well. Pt lives in home with and 8yo son she shawn. Pts spouse works for [email or web address] and has rotating 7 days, 7 off, 7 nights, 7 off which she feels reduces ability to have patterned eating and home habits. Pt often not hungry for first 6 hours after waking up so doesn't eat. 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 Mom worked a few jobs, had some food insecurity, no salad as kid-mom didn't think she would like it though she does. lots of ultraprocessed foods as a kid Pt has done many diets: [place] okay when doing [employer], lost 30# was getting heartburn, tomato based foods. Did keto for a while which she liked until she started getting heart palpitations Gets really excited about a new diet, buys all the supplies, but can't sustain the plan. Usual Day: wakes 9-10am and has coffee c coconut creamer and stevia 5:30pm first meal of day- 4 pieces sushi roll, 2 pieces pumpkin pie 7pm another piece pumpkin pie 8pm ham sandwich 8:30pm bag microwave popcorn 10pm pringles snack cup Pt is good with drinking water sometimes worries when is away from home and feels this might cause some binging. has BM daily stays up 2am Proteins+: pork, chicken, steak, brown, beans, fish, shrimp Vegetable: normandy veggies c coconut aminos, spinach, salad Fruit: berries Grains: likes rice and corn but feels she overeats it doesn't like avocado, chorizo, crab, lobster would love to eat a bagel and cream cheese every day. likes teas (of all types) RD Impression: Pt preDM, morbid obesity influenced by erratic eating and incongruent relationship with food leading to restrictive/binge cycles. Pt waking at 10am and first real meal of day is 5pm after which she continues to eat one food product at a time throughout the evening until bed, which is not so much binge eating, rather her body not having enough food throughout the day that she is making up for it during the evening. Pt would benefit from stable eating plan including regularly spaced meals throughout day with a focus on nourishing the body rather than labelling good vs bad food. This is especially true for preDM, fibromyalgia, fatigue, and GERD. RD fine c pt avoiding most dairy and eggs at this time. Pts food recall is low in dietary protein and high in sodium which may be contributing to BLE. Pt binging on pumpkin pie and chips but won't eat beets, peas, or beans because of their carb content. Balanced meals earlier in the day (1pm, 5pm, 9pm) will decrease urge to binge. Ht: 63 Wt: 262# BMI: 45.3 Nutrition Diagnosis: undesirable food choices r/t erratic eating pattern aeb pt has hx of restrictive diets, pt consumes one meal/d at 5:30pm then continues snacking until bedtime, pre-DM with A1c 5.9, morbid obesity BMI 45, pt avoiding F/V c carbs but consumes pie and chips. Interventions: 1. Educated pt on physiology of pre-DM and current habits which likely culprits for elevated BG. 2. Educated pt on balanced plate eating focusing on consuming foods in combination with different food groups and in meal size portions, mindfully. Aim for 1/4 plate (palm sized) protein, 1/4 plate complex carbs like starchy veg, and 1/2 plate fruit and non-starchy veg limiting fruit to 2 servings/d. 3. Educated pt on importance of fueling body steadily throughout the day with three meals. For pt this could look like small meal at 1pm, main meal at 5pm, and large snack at 9pm. The goal is to support BG, energy levels, and satiety throughout the day and evening to reduce urge to binge. 4. Encouraged pt not to be afraid of colorful fruits and veggies despite their carb content. Phytonutrients from these foods will nourish body and support cellular repair. Carbs are not inherently bad, eating them alone and in too large quantity can be a problem. 5. Encouraged pt to get son involved in meal prep. 6. Using meal planning template, collaborated c pt on easy to achieve meals and for pt to focus on meal timing primarily at first. EER: 1600kcals Monitoring/Evaluations: f/u in 3w to assess progress and problem solve barriers. Electronically Signed by: Misa Gutierrez 02/17/21 13:57 Clinical Dietitian [address] [id number]
[2021-02-17 15:02] VITALS: BMI 45.0
== END ==
PROVIDERS: PCP Nurse Practitioner Family; Referring Provider Nurse Practitioner Family; Visit Provider Nurse Practitioner Family
DX: F50.82 Avoidant/restrictive food intake disorder (principal); F50.81 Binge eating disorder; K21.9 Gastro-esophageal reflux disease without esophagitis; Z68.42 Body mass index [BMI] 45.0-49.9, adult
CPT/HCPCS: 97802

== ENCOUNTER → 2021-02-17 15:39 | Outpatient (CLI) | payer BC, SELFPAY ==
--- NOTE | 2021-02-17 | DI.MG.S_ITS ---
BILATERAL DIGITAL SCREENING MAMMOGRAM 3D/2D WITH CAD: 02/17/2021 CLINICAL: Routine screening. Family history of breast cancer. Comparison is made to exams dated: 02/14/2020 mammogram, 02/02/2018 mammogram, and 08/09/2016 mammogram - [facility]. There are scattered fibroglandular elements in both breasts. Current study was also evaluated with a Computer Aided Detection (CAD) system. No significant masses, calcifications, or other findings are seen in either breast. There has been no significant interval change. IMPRESSION: NEGATIVE There is no mammographic evidence of malignancy. A 1 year screening mammogram is recommended. This exam was interpreted at Station ID: [id number]. NOTE: For mammograms, a report in lay terms will be sent to the patient. Approximately 15% of breast malignancies will not be visualized mammographically. In the management of a palpable breast mass, a negative mammogram must not discourage biopsy of a clinically suspicious lesion. Electronically Signed By: Tesfaye Argueta acr/penrad:02/17/2021 17:07:51 letter sent: Normal Exam ACR BI-RADS Category 1: Negative [id number]
== END ==
PROVIDERS: PCP Nurse Practitioner Family; Referring Provider Registered Nurse; Visit Provider Registered Nurse
DX: Z12.31 Encounter for screening mammogram for malignant neoplasm of breast (principal)
CPT/HCPCS: 77063; 77067

== ENCOUNTER → 2021-03-10 13:23 | Outpatient (CLI) | payer BC, SELFPAY ==
--- NOTE | 2021-03-10 13:28 | DIET.PN1 ---
Dietary Progress Note 46y F attending RD f/u for help with disordered eating. Pt reports good success with implementing small meal at 1pm, main meal at 5pm, and large snack at 9pm. Pt has not had the desire to binge over the past 3w because of this structured eating plan. Pt loves bagel c cream cheese and has been allowing herself to eat one for her 1pm meal. She understands this is 45g CHO, but feels she makes better food choices throughout the rest of her day by allowing this meal during her most active time. Additionally, pt has lost 5# in 3w. Pt is feeling better about herself and this gentle nutrition approach to sustained healthier patterns for the long run rather than her old pattern of being very strict in following diets and then falling off. Pt purchased The Longevity Diet per RD recommendation with goal of following Fasting-Mimicking Diet 5 days in a row once per month. This is a preferred plan as it is only meant to be followed for 5 consecutive days at most once monthly. Pt considering starting this cycle in the new year. Pt inquires about vitamin supplementation, specifically MVI, adaptogens, mushrooms, Vitamin D, and calcium. Nutrition Diagnosis: resolving undesirable food choices r/t erratic eating pattern aeb pt has hx of restrictive diets, pt consumes one meal/d at 5:30pm then continues snacking until bedtime, pre-DM with A1c 5.9, morbid obesity BMI 45, pt avoiding F/V c carbs but consumes pie and chips. Interventions: 1. Pt starts to feel stressed around this time of year through the holiday season. Counselled pt on focusing on how her body feels, remembering to refuel throughout the day to keep energy levels up. 2. Recommend pt get nutrients from food first with Vit D supplement Feb-July. Pt can email RD MVIs she is looking at to assess for quality and completeness. Pt can make stinging nettle cold infusion for good source of vitamins, minerals, and calcium. RD has no problem with pt trying adaptogens and mushrooms. 3. Provided pt handout on calcium content of foods with recommendation to consume 1,000mg daily. Instructed pt to identify usual intake and supplement to fill the gap as needed. Monitoring/Evaluations: Pt will call to schedule f/u in the new year or earlier prn. Electronically Signed by: Misa Gutierrez 03/10/21 13:[address] [id number]
== END ==
PROVIDERS: PCP Nurse Practitioner Family; Referring Provider Nurse Practitioner Family; Visit Provider Nurse Practitioner Family
DX: R73.03 Prediabetes (principal); E66.01 Morbid (severe) obesity due to excess calories; Z68.42 Body mass index [BMI] 45.0-49.9, adult; Z71.3 Dietary counseling and surveillance
CPT/HCPCS: 97803

== ENCOUNTER → 2021-03-12 12:29 | Outpatient (CLI) | payer BC, SELFPAY ==
--- NOTE | 2021-03-12 | DI.MRI.S_ITS ---
PROCEDURE: MR LUMBAR SPINE WO CON INDICATIONS: LUMBAR RADICULOPATHY TECHNIQUE: Noncontrast sagittal T1 spin echo and T2 fast echo, sagittal STIR, axial T1 and T2 fast spin echo through the lumbar spine. In cases with scoliosis, additional coronal T2 fast spin echo may be performed. COMPARISON: [facility], CR, XR LUMBAR SPINE 2-3V, 01/10/2021, 17:04. FINDINGS: Image quality: Excellent. Alignment and Curvature: There is normal bony alignment. Bone Marrow: Mild reactive endplate changes noted adjacent to the T12-L1 disc. No acute vertebral body compression fractures. Spinal Cord: Conus medullaris terminates at the L2 level. Visualized cord demonstrates normal signal and size. Paraspinous Soft Tissues: No paravertebral masses. T12-L1: Loss of disc signal. Mild, diffuse disc bulge. No central stenosis. No neural foraminal narrowing. No neural compression. L1-L2: Normal appearance. L2-L3: Normal appearance. L3-L4: Normal appearance. L4-L5: Loss of disc signal. Mild, diffuse disc bulge. Mild bilateral facet hypertrophy. No central stenosis. No neural foraminal narrowing. No neural compression. Fissures noted in the posterior annulus. L5-S1: Disc has a normal appearance. Mild bilateral facet hypertrophy. No central stenosis. No neural foraminal narrowing. No neural compression. IMPRESSION: 1. Mild T12-L1 and L4-L5 degenerative disc disease. 2. Mild L4-L5 and L5-S1 facet arthropathy. 3. No central stenosis. 4. No neural foraminal narrowing. 5. No neural compression. 6. L4-L5 disc annulus fissures. Dictated by: Kassi Tracy MD, PhD on 03/14/2021 at 7:55 Approved by: Kassi Tracy MD, PhD on 03/14/2021 at 7:58
== END ==
PROVIDERS: PCP Nurse Practitioner Family; Referring Provider Physical Medicine & Rehabilitation; Visit Provider Physical Medicine & Rehabilitation
DX: M51.15 Intervertebral disc disorders with radiculopathy, thoracolumbar region (principal); M51.16 Intervertebral disc disorders with radiculopathy, lumbar region; M47.26 Other spondylosis with radiculopathy, lumbar region; M47.27 Other spondylosis with radiculopathy, lumbosacral region
CPT/HCPCS: 72148

== ENCOUNTER → 2021-06-13 13:40 | Outpatient (CLI) | payer BC, SELFPAY ==
[2021-06-13 17:16] LABS: COVID19 -Nasal RAPID Negative (Negative)
== END ==
PROVIDERS: PCP Nurse Practitioner Family; Visit Provider Physical Medicine & Rehabilitation
DX: Z20.822 Contact with and (suspected) exposure to COVID-19 (principal)
CPT/HCPCS: 87635; C9803

== ENCOUNTER 2021-06-14 14:10 | Outpatient (CLI) | payer BC, SELFPAY ==
[2021-06-14] VITALS (8 sets, daily range): BP systolic 137–198; BP diastolic 38–91; PULSE 82–98; RESP 6–81; TEMP 37.2; O2SAT 12–100
--- NOTE | 2021-06-14 14:11 | DI.RAD.S_ITS ---
PROCEDURE: PAIN L INTERLAMINAR/CAUDAL INJ INDICATIONS: SPONDYLOSIS COMPARISON: [facility], MR, MR LUMBAR SPINE WO CON, 03/12/2021, 12:30. FINDINGS: Fluoroscopic spot filming was performed to verify placement of a spinal needle at the L4-L5 level, as labeled on the films. Appropriate location of the needle tip was confirmed by injection of iodinated contrast. IMPRESSION: Intraprocedural examination within normal limits. Dictated by: James Krishnamurthy M.D. on 06/14/2021 at 14:59 Approved by: James Krishnamurthy M.D. on 06/14/2021 at 14:59
[2021-06-14] MEDS: fentaNYL 100 MCG/2 ML INJ 50 MCG IV (15:14)
[2021-06-14] MEDS: MIDAZOLAM 5 MG/5 ML VIAL IV (15:14)
[2021-06-14] MEDS: BUPIVACAINE 0.25% (PF) VIAL 2 ML INJ (15:17)
[2021-06-14] MEDS: BETAMETHASONE 30 MG/5 ML MDV 6 MG INJ (15:17)
[2021-06-14] MEDS: IOPAMIDOL 15 ML VIAL 3 ML INJ (15:17)
[2021-06-14] MEDS: DEXAMETHASONE 10 MG/ML VIAL 20 MG INJ (15:18)
--- NOTE | 2021-06-14 15:26 | P.PCN_ITS ---
Date/Time/Diagnoses Date of procedure: 06/14/21 Time of procedure: 15:27 Pre-procedure diagnosis: 1. HNP WITH RADICULAR FEATURES, 2. MULTILEVEL CENTRAL STENOSIS This procedure is found to meet the Governor's proclamation 20-24.2 regarding non urgent procedures. This patient meets multiple criteria for the procedure including continuing or worsening of significant or severe pain, combined with further deterioration of the patient's condition or overall health as well as delay in treatment would be expected to result in less positive ultimate medical outcome. Therefore the decision to perform the procedure in an outpatient hospital setting is found to be in accordance with guidelines of the proclamation. Post-procedure diagnosis: same Procedure Notes Procedure: 1. FLUOROSCOPICALLY GUIDED CONTRAST CONTROLLED INTERLAMINAR EPIDURAL STEROID INJECTION -L4/5 Indications: Angi is referred by KURT Katz for treatment of Bilateral Foraminal Stenosis R>L LE symptoms. Physician: Sd Giraldo Total Fluoroscopy time (seconds): 8 Total sedation minutes: 7 Complications: none Procedure in detail & Post-procedure care: FINDINGS Multilevel Central Spinal Stenosis with Nerve Root Compression DESCRIPTION OF PROCEDURE Fluoroscopically guided, contrast-controlled L4/5 translaminar epidural steroid injection. Following review of allergy and review of potential side effects and complications, including, but not necessarily limited to, infection, allergic reaction, local tissue breakdown, temporary as well as permanent nerve injury, paralysis, stroke and possible , the patient indicated that the patient understood and agreed to proceed. An informed consent document was signed by the patient, witnessed by a nurse, and placed in the patient's chart. Additionally, other treatment options including modalities, medications, and physical therapy were reviewed with the patient. After review of previous anaesthesic history and IV conscious sedation the patient was deemed safe to proceed with today?s procedure with IV conscious sedation as ASA class II designation. Safety time-out was performed to confirm patient ID, procedure to be performed and site of procedure. IV sedation was accomplished with a combination of 2mg of Versed and 50mcg of Fentanyl was administered by the RN after DO order, titrated to patient comfort during the course of the procedure while the patient remained responsive to all verbal commands In the prone position, following sterile prep and drape of the lumbar region, the L4/5 translaminar space was identified fluoroscopically. The skin was anesthetized via a 25-gauge, 1.5inch needle with 1% lidocaine solution. At this point, a 22-gauge short bevel spinal needle was atraumatically introduced and advanced under fluoroscopic guidance into the region of the L4/5 translaminar space. Depth was confirmed on lateral view. Radiological data, including multiple fluoroscopic views of the lumbar spine, reveal a spinal needle at the L4/5 translaminar space. Lateral views then show placement of the needle in the epidural space. Subsequent views show contrast material flowing superiorly and inferiorly in the epidural space. No vascular or intrathecal uptake is observed. At this point, using loss of resistance technique with saline and air, the epidural space was entered. This was confirmed following negative aspiration with injection of approximately 1.5cc of Isovue 200, showing excellent epidural flow without vascular or intrathecal uptake. At this point, 1cc of 1% lidocaine solution combined with 3cc or 20mg of dexamethasone and 6mg betamethasone was injected without incident. The patient tolerated the procedure well without signs or symptoms of complications prior to transfer to the recovery area continued monitoring without incident. The patient was then transferred to the recovery area where they were observed for an appropriate period of time after the injection. The patient reported a VAS score of 6 prior to the procedure and a post- procedure VAS of 0. POST OP INSTRUCTIONS The patient was provided a Pain Log to continue to record their response to the target-specific procedure prior to follow-up visit with their referring physician. Additionally, specific post-injection care instructions and a contact number to our office were provided if concerns arise regarding possible complications associated with the procedure are suspected.
== END 2021-06-14 15:44 | disposition home or self-care (01) ==
PROVIDERS: PCP Nurse Practitioner Family; Referring Provider Physical Medicine & Rehabilitation; Visit Provider Physical Medicine & Rehabilitation
DX: M51.16 Intervertebral disc disorders with radiculopathy, lumbar region (principal); M48.061 Spinal stenosis, lumbar region without neurogenic claudication
CPT/HCPCS: 62323; J0702; J1100; J2250; J3010

== ENCOUNTER → 2021-09-19 14:41 | Outpatient (CLI) | payer BC, SELFPAY ==
[2021-09-19 15:17] LABS: COVID19 -Nasal RAPID Negative (Negative)
== END ==
PROVIDERS: PCP Nurse Practitioner Family; Visit Provider Physical Medicine & Rehabilitation
DX: Z20.822 Contact with and (suspected) exposure to COVID-19 (principal)
CPT/HCPCS: 87635; C9803

== ENCOUNTER 2021-09-20 10:10 | Outpatient (CLI) | payer BC, SELFPAY ==
--- NOTE | 2021-09-20 10:14 | DI.RAD.S_ITS ---
PROCEDURE: PAIN SI JOINT INJECTION INDICATIONS: SACROILIAC DISORDER COMPARISON: None. FINDINGS: Fluoroscopic spot filming was performed to verify placement of spinal needles at the right SI joint level(s), as labeled on the films. Appropriate location(s) of the needle tip(s) was confirmed by injection of iodinated contrast. IMPRESSION: Right SI joint needle placement. Dictated by: Marysol Chow M.D. on 09/20/2021 at 16:42 Approved by: Marysol Chow M.D. on 09/20/2021 at 16:42
[2021-09-20 10:35] VITALS: BP 160/87; PULSE 81; RESP 16; TEMP 36.8; O2SAT 100
[2021-09-20 11:28] VITALS: BP 146/85; PULSE 77; RESP 14; O2SAT 100
[2021-09-20] MEDS: BETAMETHASONE 30 MG/5 ML MDV 12 MG INJ (11:31)
[2021-09-20] MEDS: IOPAMIDOL 15 ML VIAL 3 ML INJ (11:31)
[2021-09-20] MEDS: BUPIVACAINE 0.5% (PF) VIAL 2 ML INJ (11:31)
[2021-09-20 11:33] VITALS: BP 158/90; PULSE 82; RESP 12; O2SAT 100
[2021-09-20 11:38] VITALS: BP 160/95; PULSE 79; RESP 10; O2SAT 100
--- NOTE | 2021-09-20 11:43 | PM.PROC.IR.1 ---
Date/Time/Diagnoses Date of procedure: 09/20/21 Time of procedure: 11:43 Pre-procedure diagnosis: Sacroiliac joint pain/DJD Post-procedure diagnosis: same Procedure Notes Procedure: Fluoroscopically guided contrast controlled right sacroiliac joint injection Indications: Angi is referred by KURT Katz for treatment of right sacroiliac joint DJD Physician: Sd Giraldo Total Fluoroscopy time (seconds): 12 Total sedation minutes: 0 Complications: none Procedure in detail & Post-procedure care: DESCRIPTION OF PROCEDURE Fluoroscopically guided, contrast controlled right sacroiliac joint injection Following review of allergies and review of potential side effects and complications, including, but not necessarily limited to, infection, allergic reaction, local tissue breakdown, temporary as well as permanent nerve injury, paralysis, stroke and possible , the patient indicated that they understood and agreed to proceed. An informed consent was signed by the patient, witnessed by a nurse, and placed in the patient's chart. Additionally, other treatment options including modalities, medications, and physical therapy were reviewed with the patient. After review of previous anaesthesic history and IV conscious sedation the patient was deemed safe to proceed with today?s procedure with IV conscious sedation as ASA class II designation. Safety time-out was performed to confirm patient ID, procedure to be performed and site of procedure. IV sedation was deemed unnecessary and thus not administered by the RN after DO order, titrated to patient comfort during the course of the procedure while the patient remained responsive to all verbal commands In the prone position following sterile prep and drape of the pelvic region, the hyper lucency on in the inferior aspect of the sacroiliac joint was identified fluoroscopically the skin was anesthetized be a 25 gauge 1 eventual with approximately 2 cc of 1% lidocaine solution. At this point, a 22 gauge 3 in spinal needle was atraumatically introduced and advanced under fluoroscopic guidance into the inferior aspect of the right sacroiliac joint. Following negative aspiration, approximately 0.3cc of Isovue-300 was injected confirming intra-articular placement without vascular uptake. Radiographic data, including multiple fluoroscopic views of the pelvis, reveals a spinal needle in the sacroiliac joint hyper lucent zone. Subsequent view show flow contrast tear superiorly and inferiorly within the joint capsule without vascular intrathecal uptake. At this point a total of 1 of 0.5% Marcaine was combined with 1cc of 6 mg of betamethasone was injected without incident. The procedure tolerated the procedure well without signs or symptoms of complications prior to transfer to the recovery area continued monitoring without incident. The patient was then transferred to the recovery area with a bur observed for an appropriate time after the injection. The patient reverted a vas score of 7 prior to the procedure and post-procedure vas of 1. POSTOP INSTRUCTIONS The patient was provided with a pain like to continue to record the patient's response to the target specific procedure prior to the patient's follow-up visit with the referring physician. Additionally, specific post injection care instructions and a contact number to our office were provided if concerns arise regarding the possible complications associated with procedure are suspected.
[2021-09-20 11:45] VITALS: BP 177/105; PULSE 89; RESP 14; O2SAT 100
[2021-09-20 11:50] VITALS: BP 165/82; PULSE 86; RESP 14; O2SAT 100
--- NOTE | 2021-09-20 12:15 | PC.NURSE ---
IV attempts x 4. Vein finder from PACU brought pver after attempt #2. Key Eric attempts x3 and Samantha Pineda attempt x1. Patient stated that she would rather not have an IV for the procedure than be poked any more. Dr. Giraldo notified. Ok to proceed without IV or sedation.
== END 2021-09-20 11:52 | disposition home or self-care (01) ==
LOC: RAD 10:12
PROVIDERS: PCP Nurse Practitioner Family; Referring Provider Physical Medicine & Rehabilitation; Visit Provider Physical Medicine & Rehabilitation
DX: M53.3 Sacrococcygeal disorders, not elsewhere classified (principal); M46.1 Sacroiliitis, not elsewhere classified
CPT/HCPCS: 27096; J0702

== ENCOUNTER → 2023-01-12 11:17 | Outpatient (CLI) | payer BC, SELFPAY ==
[2023-01-12 12:54] LABS: Add Manual Diff / Slide Review NO; Basophils Absolute Auto 100 /uL (0-100); Basophils Percent Auto 0.9 % (0-2); Eosinophils Absolute Auto 100 /uL (0-450); Eosinophils Percent Auto 1.3 % (2-4); Hemoglobin 13.8 g/dL (12.0-16.0); Lymphocytes Absolute Auto 1600 /uL (1100-4500); Lymphocytes Percent Auto 26.8 % (25-40); Mean Corpuscular HGB Conc 33.7 % (30-36); Mean Corpuscular Hemoglobin 28.9 PG (26-34); Mean Corpuscular Volume 85.8 fL (80-100); Monocytes Absolute Auto 400 /uL (0-900); Monocytes Percent Auto 6.9 % (3-14); Neutrophils Absolute Auto 3800 /uL (1500-7000); Neutrophils Percent Auto 64.1 % (50-75); Platelet Count 298 X10^3/uL (150-400); Red Blood Cell Count 4.77 X10^6/uL (4.0-5.2); Red Cell Distribution Width 13.6 % (11.6-14.8); White Blood Cell Count 5.9 X10^3/uL (4.5-11.0)
[2023-01-12 12:59] LABS: Hemoglobin A1C% w Est Avg Glu 5.4 % (4.0-6.0)
[2023-01-12 13:39] LABS: Iron 60 ug/dL (37-170)
[2023-01-12 13:44] LABS: Alanine Aminotransferase 18 IU/L (<35); Albumin 4.3 g/dL (3.5-5.0); Albumin Globulin Ratio 1.3 (1.0-2.8); Alkaline Phosphatase 82 U/L (38-126); Aspartate Aminotransferase 22 IU/L (14-36); BUN Creatinine Ratio 17.2 (6-22); Bilirubin Total 0.4 mg/dL (0.2-1.3); Blood Urea Nitrogen 10 mg/dL (7-17); Carbon Dioxide 22 mmol/L (22-32); Chloride 107 mmol/L (98-107); Cholesterol 212 mg/dL (140-199); Estimated Glomerular Filt Rate > 60 mL/min (>60); Globulin 3.2 g/dL (1.7-4.1); Glucose 97 mg/dL (70-100); HDL Cholesterol 38 mg/dL (40-60); HEMOLYSIS < 15 (0-50); LDL Cholesterol Calculated 149 mg/dL (<100); Potassium 4.5 mmol/L (3.4-5.1); Sodium 138 mmol/L (137-145); Total Protein 7.5 g/dL (6.3-8.2); Triglycerides 124 mg/dL (35-150)
[2023-01-12 13:49] LABS: Percent Iron Saturation 16 % (15-50); Total Iron Binding Capacity 371 ug/dL (265-497)
[2023-01-12 14:13] LABS: Thyroid Stimulating Hormone 1.19 uIU/mL (0.47-4.68)
[2023-01-12 14:17] LABS: Ferritin 15 ng/mL (6-137)
[2023-01-12 14:49] LABS: Folate 14.4 ng/mL (2.76-20.0); Vitamin B12 531 pg/mL (239-931)
[2023-01-12 15:24] LABS: Vitamin D 25 Hydroxy (D3) 37.4 ng/mL (30.0-100.0)
[2023-01-24 17:36] LABS: Vitamin B1 129.3 nmol/L (66.5-200.0)
== END ==
PROVIDERS: PCP Nurse Practitioner Family; Referring Provider Surgery; Visit Provider Surgery
DX: Z86.73 Personal history of transient ischemic attack (TIA), and cerebral infarction without residual deficits (principal); I10 Essential (primary) hypertension; R00.2 Palpitations; Z01.818 Encounter for other preprocedural examination; Z71.3 Dietary counseling and surveillance; Z13.21 Encounter for screening for nutritional disorder
CPT/HCPCS: 36415; 80053; 80061; 82306; 82607; 82728; 82746; 83036; 83540; 83550; 84425; 84443; 85025; 93005

== ENCOUNTER → 2023-04-09 09:41 | Outpatient (CLI) | payer BC, SELFPAY ==
[2023-04-10 18:18] LABS: Fecal Immunochemical Test Negative (Negative)
== END ==
PROVIDERS: PCP Family Medicine; Referring Provider Family Medicine; Visit Provider Family Medicine
DX: Z12.11 Encounter for screening for malignant neoplasm of colon (principal); Z12.12 Encounter for screening for malignant neoplasm of rectum
CPT/HCPCS: 82274

== ENCOUNTER → 2023-04-17 16:31 | Outpatient (CLI) | payer BC, SELFPAY ==
--- NOTE | 2023-04-17 | DI.MG.S_ITS ---
BILATERAL DIGITAL SCREENING MAMMOGRAM 3D/2D WITH CAD: 04/17/2023 CLINICAL: Routine screening. Comparison is made to exams dated: 02/17/2021 mammogram, 02/14/2020 mammogram, and 02/02/2018 mammogram - . There are scattered areas of fibroglandular density in both breasts (category b / 25%-50% glandular tissue). Current study was also evaluated with a Computer Aided Detection (CAD) system. No significant masses, calcifications, or other findings are seen in either breast. There has been no significant interval change. IMPRESSION: NEGATIVE There is no mammographic evidence of malignancy. A 1 year screening mammogram is recommended. Based on the Tyrer Cuzick model (a risk assessment model) the patient's lifetime risk is 9.6% and her 10 year risk is 2.1%. According to the ACR, ACS, and NCCN guidelines, an annual breast MRI exam along with mammogram is recommended if the patient's lifetime risk is 20% or greater. This exam was interpreted at Station ID: [id number]. NOTE: For mammograms, a report in lay terms will be sent to the patient. Approximately 15% of breast malignancies will not be visualized mammographically. In the management of a palpable breast mass, a negative mammogram must not discourage biopsy of a clinically suspicious lesion. Electronically Signed By: Jas vazquez/saloni:04/19/2023 12:13:30 letter sent: Normal Exam ACR BI-RADS Category 1: Negative [id number]
== END ==
PROVIDERS: PCP Family Medicine; Referring Provider Family Medicine; Visit Provider Family Medicine
DX: Z12.31 Encounter for screening mammogram for malignant neoplasm of breast (principal)
CPT/HCPCS: 77063; 77067

== ENCOUNTER → 2023-06-05 09:34 | Outpatient (CLI) | payer BC, SELFPAY ==
[2023-06-05 10:32] LABS: Add Manual Diff / Slide Review NO; Basophils Absolute Auto 100 /uL (0-100); Basophils Percent Auto 0.9 % (0-2); Eosinophils Absolute Auto 100 /uL (0-450); Eosinophils Percent Auto 1.2 % (2-4); Hematocrit 45.1 % (36-46); Lymphocytes Absolute Auto 1900 /uL (1100-4500); Mean Corpuscular HGB Conc 33.2 % (30-36); Mean Corpuscular Hemoglobin 28.2 PG (26-34); Mean Corpuscular Volume 84.8 fL (80-100); Monocytes Absolute Auto 500 /uL (0-900); Monocytes Percent Auto 6.2 % (3-14); Neutrophils Absolute Auto 5700 /uL (1500-7000); Neutrophils Percent Auto 68.7 % (50-75); Platelet Count 276 X10^3/uL (150-400); Red Blood Cell Count 5.31 X10^6/uL (4.0-5.2); Red Cell Distribution Width 13.7 % (11.6-14.8); White Blood Cell Count 8.3 X10^3/uL (4.5-11.0)
[2023-06-05 10:40] LABS: Hemoglobin A1C% w Est Avg Glu 5.8 % (4.0-6.0)
[2023-06-05 10:52] LABS: HEMOLYSIS < 15 (0-50); Iron 124 ug/dL (37-170)
[2023-06-05 10:54] LABS: Alanine Aminotransferase 19 IU/L (<35); Albumin 4.5 g/dL (3.5-5.0); Albumin Globulin Ratio 1.4 (1.0-2.8); Alkaline Phosphatase 80 U/L (38-126); Aspartate Aminotransferase 22 IU/L (14-36); BUN Creatinine Ratio 18.4 (6-22); Bilirubin Total 0.8 mg/dL (0.2-1.3); Blood Urea Nitrogen 14 mg/dL (7-17); Calcium 9.7 mg/dL (8.4-10.2); Carbon Dioxide 26 mmol/L (22-32); Chloride 103 mmol/L (98-107); Cholesterol 230 mg/dL (140-199); Estimated Glomerular Filt Rate > 60 mL/min (>60); Globulin 3.3 g/dL (1.7-4.1); Glucose 113 mg/dL (70-100); HDL Cholesterol 44 mg/dL (40-60); HEMOLYSIS < 15 (0-50); LDL Cholesterol Calculated 155 mg/dL (<100); Potassium 4.3 mmol/L (3.4-5.1); Sodium 138 mmol/L (137-145); Total Protein 7.8 g/dL (6.3-8.2); Triglycerides 157 mg/dL (35-150)
[2023-06-05 10:57] LABS: High Sensitivity CRP - Cardiac 9.2 mg/L (1.0-3.0)
[2023-06-05 11:02] LABS: Percent Iron Saturation 38 % (15-50); Total Iron Binding Capacity 326 ug/dL (265-497); Transferrin 292 mg/dL (206-381)
[2023-06-05 11:07] LABS: Vitamin D 25 Hydroxy (D3) 34.6 ng/mL (30.0-100.0)
[2023-06-05 11:22] LABS: Thyroid Stimulating Hormone 1.71 uIU/mL (0.47-4.68)
[2023-06-05 11:27] LABS: Ferritin 16 ng/mL (6-137)
[2023-06-05 11:55] LABS: Creatinine Urine Random 231.6 mg/dL
[2023-06-05 11:59] LABS: Microalbumin Urine Random 0.7 mg/dL (0-1.6)
[2023-06-06 05:52] LABS: Fructosamine 219 umol/L (0-285)
[2023-06-06 10:37] LABS: Insulin Level Total 16.2 uIU/mL (2.6-24.9)
== END ==
PROVIDERS: PCP Family Medicine; Referring Provider Family Medicine; Visit Provider Family Medicine
DX: F50.81 Binge eating disorder (principal); R53.83 Other fatigue; E66.01 Morbid (severe) obesity due to excess calories; E03.9 Hypothyroidism, unspecified; I10 Essential (primary) hypertension; R73.03 Prediabetes; E55.9 Vitamin D deficiency, unspecified; Z68.42 Body mass index [BMI] 45.0-49.9, adult; R73.9 Hyperglycemia, unspecified
CPT/HCPCS: 36415; 80053; 80061; 82043; 82306; 82570; 82728; 82985; 83036; 83525; 83540; 83550; 84443; 85025; 86140

== ENCOUNTER → 2023-12-22 10:27 | Outpatient (CLI) | payer BC, SELFPAY ==
[2023-12-22 11:29] LABS: Alanine Aminotransferase 20 IU/L (<35); Albumin 4.2 g/dL (3.5-5.0); Albumin Globulin Ratio 1.5 (1.0-2.8); Alkaline Phosphatase 70 U/L (38-126); Aspartate Aminotransferase 24 IU/L (14-36); BUN Creatinine Ratio 17.6 (6-22); Bilirubin Total 0.5 mg/dL (0.2-1.3); Blood Urea Nitrogen 13 mg/dL (7-17); Calcium 9.2 mg/dL (8.4-10.2); Carbon Dioxide 23 mmol/L (22-32); Chloride 105 mmol/L (98-107); Cholesterol 178 mg/dL (140-199); Estimated Glomerular Filt Rate > 60 mL/min (>60); Globulin 2.8 g/dL (1.7-4.1); Glucose 98 mg/dL (70-100); HDL Cholesterol 30 mg/dL (40-60); HEMOLYSIS < 15 (0-50); LDL Cholesterol Calculated 131 mg/dL (<100); Potassium 4.2 mmol/L (3.4-5.1); Sodium 138 mmol/L (137-145); Triglycerides 87 mg/dL (35-150)
[2023-12-22 11:32] LABS: High Sensitivity CRP - Cardiac 4.6 mg/L (1.0-3.0)
[2023-12-22 11:58] LABS: TSH w/ Reflex to FT4 1.07 uIU/mL (0.47-4.68)
== END ==
PROVIDERS: PCP Family Medicine; Referring Provider Family Medicine; Visit Provider Family Medicine
DX: R73.03 Prediabetes (principal); Z68.41 Body mass index [BMI] 40.0-44.9, adult; R79.82 Elevated C-reactive protein (CRP); E66.01 Morbid (severe) obesity due to excess calories; R53.83 Other fatigue; I10 Essential (primary) hypertension; E78.5 Hyperlipidemia, unspecified
CPT/HCPCS: 36415; 80053; 80061; 82627; 83525; 84443; 86140

== ENCOUNTER → 2023-12-27 | Outpatient (CLI) | payer SELFPAY | LOC: RAD 14:51 | PROVIDERS: PCP Family Medicine; Referring Provider Family Medicine; Visit Provider Family Medicine | DX: E66.01 Morbid (severe) obesity due to excess calories (principal); I10 Essential (primary) hypertension; R53.83 Other fatigue; E78.5 Hyperlipidemia, unspecified ==

== ENCOUNTER → 2024-02-20 11:28 | Outpatient (CLI) | payer BC, SELFPAY ==
[2024-02-20 13:49] LABS: Add Manual Diff / Slide Review NO; Basophils Absolute Auto 0 /uL (0-100); Basophils Percent Auto 0.7 % (0-2); Eosinophils Absolute Auto 0 /uL (0-450); Eosinophils Percent Auto 0.6 % (2-4); Hematocrit 41.8 % (36-46); Lymphocytes Absolute Auto 1400 /uL (1100-4500); Lymphocytes Percent Auto 22.6 % (25-40); Mean Corpuscular HGB Conc 33.5 % (30-36); Mean Corpuscular Hemoglobin 28.3 PG (26-34); Mean Corpuscular Volume 84.4 fL (80-100); Monocytes Absolute Auto 400 /uL (0-900); Monocytes Percent Auto 6.9 % (3-14); Neutrophils Absolute Auto 4200 /uL (1500-7000); Neutrophils Percent Auto 69.2 % (50-75); Platelet Count 296 X10^3/uL (150-400); Red Blood Cell Count 4.95 X10^6/uL (4.0-5.2); Red Cell Distribution Width 14.1 % (11.6-14.8); White Blood Cell Count 6.1 X10^3/uL (4.5-11.0)
[2024-02-20 14:24] LABS: Rheumatoid Factor < 8.6 IU/mL (<12.0)
[2024-02-20 15:22] LABS: Erythrocyte Sedimentation Rate 9 MM/HR (0-20)
[2024-02-20 22:35] LABS: C-Reactive Protein Quant 0.8 mg/dL (<1.0)
== END ==
PROVIDERS: PCP Family Medicine; Referring Provider Family Medicine; Visit Provider Family Medicine
DX: M79.641 Pain in right hand (principal); M79.642 Pain in left hand; M25.531 Pain in right wrist; M25.532 Pain in left wrist
CPT/HCPCS: 36415; 85025; 85651; 86038; 86140; 86200; 86430

== ENCOUNTER → 2024-05-24 11:31 | Outpatient (CLI) | payer BC, SELFPAY ==
--- NOTE | 2024-05-24 11:32 | DI.MG.S_ITS ---
BILATERAL DIGITAL SCREENING MAMMOGRAM 3D/2D WITH CAD: 05/24/2024 CLINICAL: Routine screening. Comparison is made to exams dated: 04/17/2023 mammogram, 02/17/2021 mammogram, and 02/14/2020 mammogram - [facility]. There are scattered areas of fibroglandular density (category b / 25%-50% glandular tissue). Current study was also evaluated with a Computer Aided Detection (CAD) system. There is a biopsy clip in the right breast. No significant masses, calcifications, or other findings are seen in either breast. There has been no significant interval change. IMPRESSION: NEGATIVE There is no mammographic evidence of malignancy. A 1 year screening mammogram is recommended. Based on the Tyrer Cuzick model (a risk assessment model) the patient's lifetime risk is 9.6% and her 10 year risk is 2.2%. According to the ACR, ACS, and NCCN guidelines, an annual breast MRI exam along with mammogram is recommended if the patient's lifetime risk is 20% or greater. This exam was interpreted at Station ID: [id number]. NOTE: For mammograms, a report in lay terms will be sent to the patient. Approximately 15% of breast malignancies will not be visualized mammographically. In the management of a palpable breast mass, a negative mammogram must not discourage biopsy of a clinically suspicious lesion. Electronically Signed By: Halle mejia/saloni:05/26/2024 08:43:35 letter sent: Normal Exam ACR BI-RADS Category 1: Negative
== END ==
PROVIDERS: PCP Family Medicine; Referring Provider Family Medicine; Visit Provider Family Medicine
DX: Z12.31 Encounter for screening mammogram for malignant neoplasm of breast (principal)
CPT/HCPCS: 77063; 77067

== ENCOUNTER 2024-09-19 08:22 | Emergency (ER) | payer BC, SELFPAY ==
[2024-09-19 08:23] VITALS: BP 132/75; PULSE 84; RESP 16; TEMP 36.7; O2SAT 100; BMI 32.5
--- NOTE | 2024-09-19 10:14 | ED.NECK ---
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 Patient states left side of her neck has been sort of throbbing and she was had discomfort that started about 10:00 a.m. in the evening. She states movement does seem to make it little bit worse. She denies any trauma or new injuries. She was sewed sometimes her neck gets a little bit stiff and uncomfortable when she lifts things. Denies any numbness, tingling or weakness that is new. She was some chronic paresthesias in her right leg and arm which he states are at their baseline. She denies any new difficulties with vision changes, no speech changes, no headache. No chest pain or shortness of breath. She states maybe little bit of nausea, no vomiting. No GI or urinary symptoms. No changes to gait or movement. Patient knows that she had a stroke related to chiropractic new accumulation at age 37 she was at that time. Sounds like she had a vertebral artery dissection. Was followed closely with OB and Neurology. Does note she was recently diagnosed with rheumatology for juvenile rheumatoid arthritis in his following with Dr. Parry at [facility] . She states she was never on aspirin. She was on an oral SL GP currently. Related Data Home Medications Medication Instructions Recorded Confirmed acetaminophen 500 mg oral powder 1,000 mg PO Q6H PRN Pain (Scale 03/04/21 08/05/24 packet (Tylenol Extra Strength) Score 1-3) adalimumab-ryvk 40 mg/0.4 mL mg SUBCUT 08/05/24 08/05/24 subcutaneous auto-injector kit Previous Rx's Medication Instructions Recorded low dose naltrexone 4.5mg caps 2 cap PO DAILY #90 multiple units 10/10/23 Progesterone E4m See Rx Instructions PO DAILY #90 02/26/24 caps progesterone e4m 50 mg PO .with largest meal #90 02/26/24 caps metoprolol tartrate 50 mg tablet 50 mg PO QPM #30 tabs 10/21/24 sodium,potassium,mag sulfates 17.5 See Rx Instructions PO .COMPLEX 06/05/24 gram-3.13 gram-1.6 gram oral soln #354 mL (Suprep Bowel Prep Kit) tirzepatide (weight loss) 15 15 mg (0.5 mL) SUBCUT QWEEK #6 mL 08/05/24 mg/0.5 mL subcutaneous pen injector (Zepbound) Allergies Allergy/AdvReac Type Severity Reaction Status Date / Time losartan Allergy Severe Nausea, Verified 09/19/24 08:30 stomach cramping Sulfa (Sulfonamide Allergy Intermediate Vomiting Verified 09/19/24 08:30 Antibiotics) amoxicillin [AMOXICILLIN] Allergy Mild RASH Verified 09/19/24 08:30 clavulanic acid Allergy Mild RASH Verified 09/19/24 08:30 [From AUGMENTIN] clarithromycin Allergy sweat, Verified 09/19/24 08:30 nausea, heart palpitations Review of Systems Review of Systems ROS Unobtainable: All systems reviewed & are unremarkable except as noted in HPI and below Patient History Medical History History of morbid obesity (~2020) BMI 45.0-49.9, adult Wears glasses Jessica's syndrome Sleep apnea (~2022) Stroke (~2012) Peripheral neuropathy Fibromyalgia (~2013) Chronic back pain (~2019) Chicken pox Allergies (~2018) Tinnitus (~2017) Hemorrhoid (~1989) GERD (gastroesophageal reflux disease) (~2016) Herniated nucleus pulposus, L4-5 Hypertension Lower extremity edema Vertebral artery dissection Surgical History History of section (~06/2012) No pertinent past surgical history Family History Mother Cancer Heart attack Grandmother Diabetes mellitus History of heart disease Hyperlipidemia Hypertension Mental health problem Grandfather Cancer History of heart disease Hyperlipidemia Hypertension AAA (abdominal aortic aneurysm) Grandfather Cancer History of heart disease Hyperlipidemia Hypertension Grandmother Hypertension Social History Smoking Status: Never smoker Smoking Status: Never smoker alcohol intake frequency: holidays/special occasions only Exam Narrative Exam Narrative: GEN: well nourished, well appearing female, alert and oriented x 3, patient appears to be in no acute distress. HEENT: Atraumatic, pupils are equal round reactive to light, extraocular movements are intact, nares are clear, TMs are clear with no fluid, there is no conjunctival pallor. Throat is clear without any exudates, erythema, tonsillar enlargement or uvular deviation, no swelling, no erythema nontender over the neck, full range of motion, no cervical vertebral tenderness. Patient has normal range of motion. HEART: Regular rate and rhythm without murmur, clicks, rubs. No carotid bruits, pulses are equal in upper and lower extremities LUNGS:Lungs clear to auscultation, no wheezes, rales, crackles, chest moves symmetrically ABD:bowel sounds normal, soft, non-tender, no guarding, rebound, rigidity, no masses noted, no hepatosplenomegaly MSCL: Non-tender, no muscle atrophy, muscles strength 5/5 upper and lower extremities, full range of motion, normal gait NEURO:CN 2-12 intact, sensation normal,finger nose finger test normal, heel nagy test normal, romberg normal Initial Vital Signs Initial Vital Signs: Vital Signs Temperature 98.0 F 09/19/24 08:23 Pulse Rate 84 09/19/24 08:23 Respiratory Rate 16 09/19/24 08:23 Blood Pressure 132/75 09/19/24 08:23 Pulse Oximetry 100 09/19/24 08:23 Oxygen Delivery Method Room Air 09/19/24 08:23 Course Orders Ordered: ED Orders 09/19/24 10:22 CT angio head and neck Stat Vital Signs Vital signs: Vital Signs - 8 hr 09/19/24 12:21 Pulse Rate 76 Respiratory Rate 16 Blood Pressure 121/73 Pulse Oximetry 100 Oxygen Delivery Method Room Air MDM - Neck Pain/Injury Lab Data 09/19/24 08:56 09/19/24 08:56 Labs: Lab Results 09/19/24 Range/Units 08:56 WBC 6.9 (4.5-11.0) X10^3/uL RBC 5.00 (4.0-5.2) X10^6/uL Hgb 14.4 (12.0-16.0) g/dL Hct 41.9 (36-46) % MCV 83.8 (80-100) fL MCH 28.7 (26-34) PG MCHC 34.3 (30-36) % RDW 14.9 H (11.6-14.8) % Plt Count 314 (150-400) X10^3/uL Neut % (Auto) 74.1 (50-75) % Lymph % (Auto) 16.7 L (25-40) % [place] % (Auto) 8.0 (3-14) % Eos % (Auto) 0.6 L (2-4) % Baso % (Auto) 0.6 (0-2) % Neut # (Auto) 5100 (7759-5072) /uL Lymph # (Auto) 1200 (3327-4153) /uL [place] # (Auto) 600 (0-900) /uL Eos # (Auto) 0 (0-450) /uL Baso # (Auto) 0 (0-100) /uL Sodium 137 (137-145) mmol/L Potassium 4.0 (3.4-5.1) mmol/L Chloride 104 (98-107) mmol/L Carbon Dioxide 24 (22-32) mmol/L BUN 14 (7-17) mg/dL Creatinine 0.79 (0.52-1.04) mg/dL Estimated GFR > 60 (>60) mL/min BUN/Creatinine Ratio 17.7 (6-22) Glucose 92 (70-99) mg/dL Calcium 9.2 (8.4-10.2) mg/dL [facility] Narrative Medical decision making narrative: Patient did have head and neck MRA in 2019 which was negative for any change at that time. Discussed with patient suspicion is lower she has not had any other acute new changes but she notes this is the same location where she had discomfort in her prior dissection. She has not had any other new traumas or injuries after discussion we will obtain CT head and neck angio. Labs show normal hemoglobin, white count and platelets. Chemistries appropriate. Head and neck CTA notes focal contour irregularity seen posterior right carotid bifurcation involving internal carotid artery origin, internal carotid arteries demonstrate normal caliber is and courses. Findings could represent a small penetrating ulcer or focal dissection versus congenital variation. No significant atherosclerotic disease seen in his location no luminal narrowing finding likely present on the prior MRA from 06/21/2018 although seen better on current sagittal CT images. No significant abnormalities involving the major arteries of the neck. Discussed findings with patient this is the opposite side of her discomfort. She discussed we will have her follow up with primary care in the short term. As patient had potential changes seen on her MRA of 2019. She also notes that she has scheduled follow up with vascular surgery in place. Had report and images on disc for patient to share with vascular. Discussed return precautions all questions answered. Discharge Plan Departure Patient Disposition: Home Clinical Impression: Neck pain on left side Activity Restrictions/Additional Instructions: Follow up with your physician, your CT angio shows a focal contour irregularity of the right posterior internal carotid artery appears chronic common this could be a potential small penetrating ulcer or focal dissection versus congenital variation per report it was likely present on your MR a from 2019 although seen better on today's CT imaging. This is the opposite side of your current symptoms today. A copy of your images from your CT head and neck angio is included take this to your appointment to follow up with vascular surgery. Please call to let them know that these changes were found. I would recommend following this up. You can take acetaminophen up to a 1000 mg every 6 hours and/or ibuprofen up to 600 mg every 6 hours as needed. Please return if you develop other new or concerning changes. Prescriptions: No Action metoprolol tartrate 50 mg tablet 50 mg PO QPM Qty: 30 0RF low dose naltrexone 4.5mg caps 2 cap PO DAILY Qty: 90 0RF Hold Instructions: pause while trying contrave; increase if contrave denied adalimumab-ryvk 40 mg/0.4 mL auto-injector, kit SUBCUT Patient Comments: [NO ORIGINAL SIG] Zepbound 15 mg/0.5 mL pen injector 15 mg SUBCUT QWEEK Qty: 6 0RF Progesterone E4m 100 mg capsule See Rx Instructions PO DAILY Qty: 90 3RF Rx Instructions: 1 cap nightly progesterone e4m 50 mg PO .with largest meal Qty: 90 1RF Rx Instructions: do not take from start of menses for 1 week, then restart sodium,potassium,mag sulfates [Suprep Bowel Prep Kit] 17.5-3.13-1.6 gram recon soln See Rx Instructions PO .COMPLEX Qty: 354 0RF Rx Instructions: take as directed by Physician Tylenol Extra Strength 500 mg powder in packet 1,000 mg PO Q6H PRN (Reason: Pain (Scale Score 1-3)) Referrals: Cuca Cain DO [Primary Care Provider] - Stand Alone Forms: Patient Portal/API/Survey
--- NOTE | 2024-09-19 10:22 | DI.CT.S_ITS ---
PROCEDURE: CT ANGIO HEAD AND NECK INDICATIONS: L neck pain, throbbing, atypical TECHNIQUE: After the administration of intravenous contrast, 1 mm thick sections acquired from the aortic arch through the [place]. 3-dimensional lfupblm-revecbpku-rcsmrrnhim (MIP) and/or volume rendering reformats were acquired of the central intracranial vasculature and neck separately. For radiation dose reduction, the following was used: automated exposure control, adjustment of mA and/or kV according to patient size. COMPARISON: [facility], MR, MR ANGIO NECK W CON, 06/21/2018, 16:00. FINDINGS: Image quality: Diagnostic. BRAIN: CSF spaces: Ventricles are normal in size and shape. Basal cisterns are patent. No extra-axial fluid collections. Brain: No significant abnormality of the brain can be seen. Skull and face: Calvarium and facial bones appear intact, without suspicious lesions. Orbits appear normal. Sinuses: Sinuses and mastoids are clear. HEAD CT ANGIOGRAPHY: Anterior circulation: Intracranial internal carotid arteries are normal in size and flow. The flow within the paired anterior cerebral arteries is normal and symmetric. The flow within the middle cerebral arteries is normal and symmetric. The anterior communicating artery is seen. No aneurysms are seen. Posterior circulation: Visualized portions of the vertebral arteries demonstrate normal caliber, and join to form a normal appearing basilar artery. Flow within the posterior cerebral arteries is normal and symmetric. No aneurysms are seen. NECK CT ANGIOGRAPHY: Carotid system: The great vessels demonstrate a conventional anatomy as they arise from the aortic arch. The origins of the common carotid arteries appear patent. The common carotid arteries demonstrate normal caliber and courses. Mild focal atherosclerotic calcification at the left carotid bifurcation without hemodynamically significant stenosis. Focal contour irregularity is seen at the posterior right carotid bifurcation involving the internal carotid artery origin. The internal carotid arteries demonstrate normal calibers and courses. Posterior circulation: The origins of the vertebral arteries both appear widely patent. The more superior extracranial portions of both vertebral arteries also demonstrate normal courses and calibers. They join to form a normal appearing basilar artery. Soft tissues: Visualized neck soft tissues demonstrate no suspicious abnormalities. Bones: No suspicious bony lesions. Degenerative changes are seen in the cervical spine most notably at the C4-5 and C5-6 levels. IMPRESSION: No significant intracranial arterial abnormality is seen. Focal contour irregularity at the right posterior internal carotid artery origin appears chronic and is of uncertain significance. Finding could represent a small penetrating ulcer or focal dissection versus congenital variation. No significant atherosclerotic disease is seen in this location. No luminal narrowing. Finding was likely present on the prior MRA from 06/21/2018, although much better seen on current sagittal CT images. No significant abnormality involving the major arteries of the left neck. Any quantitative measurements of stenosis were performed using NASCET criteria. Approved by: Adan Snow M.D. on 09/19/2024 at 11:43
[2024-09-19 10:28] LABS: Add Manual Diff / Slide Review NO; Basophils Absolute Auto 0 /uL (0-100); Basophils Percent Auto 0.6 % (0-2); Eosinophils Absolute Auto 0 /uL (0-450); Eosinophils Percent Auto 0.6 % (2-4); Hematocrit 41.9 % (36-46); Hemoglobin 14.4 g/dL (12.0-16.0); Lymphocytes Absolute Auto 1200 /uL (1100-4500); Lymphocytes Percent Auto 16.7 % (25-40); Mean Corpuscular HGB Conc 34.3 % (30-36); Mean Corpuscular Hemoglobin 28.7 PG (26-34); Mean Corpuscular Volume 83.8 fL (80-100); Monocytes Absolute Auto 600 /uL (0-900); Neutrophils Absolute Auto 5100 /uL (1500-7000); Neutrophils Percent Auto 74.1 % (50-75); Platelet Count 314 X10^3/uL (150-400); Red Cell Distribution Width 14.9 % (11.6-14.8); White Blood Cell Count 6.9 X10^3/uL (4.5-11.0)
[2024-09-19 10:34] LABS: BUN Creatinine Ratio 17.7 (6-22); Blood Urea Nitrogen 14 mg/dL (7-17); Calcium 9.2 mg/dL (8.4-10.2); Carbon Dioxide 24 mmol/L (22-32); Chloride 104 mmol/L (98-107); Estimated Glomerular Filt Rate > 60 mL/min (>60); Glucose 92 mg/dL (70-99); HEMOLYSIS 17 (0-50); Sodium 137 mmol/L (137-145)
--- NOTE | 2024-09-19 10:44 | PC.NURSE ---
Pt denies vision changes; no auras or blurry vision. Reports headache and states she feels pulsating to back of neck. States she had some dizziness. Pt states she is worried because when she was 5 days she had her neck manipulated which caused her to have a stroke. Denies having surgery from this. Reports chronic neuropathy on right side of body. Gait WNL.
[2024-09-19 12:21] VITALS: BP 121/73; PULSE 76; RESP 16; O2SAT 100
== END 2024-09-19 12:19 | disposition home or self-care (01) ==
PROVIDERS: Emergency Provider Emergency Medicine; PCP Family Medicine
DX: M54.2 Cervicalgia (principal); Z86.73 Personal history of transient ischemic attack (TIA), and cerebral infarction without residual deficits; Z86.79 Personal history of other diseases of the circulatory system; R20.2 Paresthesia of skin
CPT/HCPCS: 70496; 70498; 80048; 85025; 99281; 99284; Q9967

== ENCOUNTER → 2024-12-18 06:37 | Outpatient (CLI) | payer BC, SELFPAY ==
--- NOTE | 2024-12-18 06:38 | DI.US.S_ITS ---
PROCEDURE: US PELVIC COMPLETE INDICATIONS: RLQ pain TECHNIQUE: Real-time scanning was performed of the pelvic organs, with image documentation. Additional endovaginal scanning was necessary due to incomplete visualization of the adnexal and endometrial structures by transabdominal scanning. COMPARISON: [facility], , US PELVIC COMPLETE, 02/25/2020, 14:49. FINDINGS: Uterus: The uterus measures 8.8 x 5.3 by 7.3 cm. Endometrium measures 1.3 cm in thickness. Within the endometrium, there is a small lesion measuring 1.4 x 1 by 1.2 cm. Ovaries: Right ovary is enlarged at 22 cc. There are multiple simple cysts, measuring up to 3.3 x 3 cm and 2.1 x 1.8 cm Color and spectral flows currently identified. Left ovary was not identified today. Other: No right hydronephrosis. IMPRESSION: Mildly enlarged right ovary at 22 cc, with multiple simple cysts. Color and spectral vascular flows are currently identified Endometrium measures 1.3 cm in thickness, within normal limits assuming patient is not postmenopausal. A small endometrial lesion measures 1.4 x 1.2 cm, possibly a small submucosal fibroid versus polyp. If clinically desired, this could be further evaluated on imaging by MRI Dictated by: Jas Tracy M.D. on 12/18/2024 at 7:19 Approved by: Jas Tracy M.D. on 12/18/2024 at 7:22
== END ==
PROVIDERS: PCP Family Medicine; Referring Provider Family Medicine; Visit Provider Family Medicine
DX: N83.291 Other ovarian cyst, right side (principal); R10.31 Right lower quadrant pain
CPT/HCPCS: 76830; 76856; 93976

== ENCOUNTER → 2025-02-16 07:50 | Outpatient (CLI) | payer BC, SELFPAY ==
[2025-02-16 08:58] LABS: Hematocrit 40.0 % (36-46); Hemoglobin 13.3 g/dL (12.0-16.0); Mean Corpuscular HGB Conc 33.3 % (30-36); Mean Corpuscular Hemoglobin 28.4 PG (26-34); Mean Corpuscular Volume 85.2 fL (80-100); Platelet Count 255 X10^3/uL (150-400)
[2025-02-16 09:06] LABS: Hemoglobin A1C% w Est Avg Glu 5.2 % (4.0-6.0)
[2025-02-16 09:19] LABS: Alanine Aminotransferase 12 IU/L (<35); Albumin 4.0 g/dL (3.5-5.0); Albumin Globulin Ratio 1.4 (1.0-2.8); Alkaline Phosphatase 55 U/L (38-126); Blood Urea Nitrogen 16 mg/dL (7-17); Calcium 8.9 mg/dL (8.4-10.2); Carbon Dioxide 26 mmol/L (22-32); Chloride 105 mmol/L (98-107); Cholesterol 171 mg/dL (140-199); Estimated Glomerular Filt Rate > 60 mL/min (>60); Globulin 2.9 g/dL (1.7-4.1); Glucose 83 mg/dL (70-99); HDL Cholesterol 46 mg/dL (40-60); HEMOLYSIS < 15 (0-50); Potassium 4.6 mmol/L (3.4-5.1); Sodium 138 mmol/L (137-145); Total Protein 6.9 g/dL (6.3-8.2); Triglycerides 73 mg/dL (35-150)
[2025-02-16 09:49] LABS: TSH w/ Reflex to FT4 1.59 uIU/mL (0.47-4.68)
[2025-02-17 03:36] LABS: CRP, High Sensitivity 1.88 mg/L (0.00-3.00)
== END ==
PROVIDERS: PCP Family Medicine; Referring Provider Family Medicine; Visit Provider Family Medicine
DX: E66.811 Obesity, class 1 (principal); I10 Essential (primary) hypertension; R73.03 Prediabetes; K21.9 Gastro-esophageal reflux disease without esophagitis; G47.30 Sleep apnea, unspecified; M08.80 Other juvenile arthritis, unspecified site
CPT/HCPCS: 36415; 80053; 80061; 82627; 83036; 83525; 84443; 85027; 86140